=== PATIENT | female | born 1950 | race African-American/Black ===

== ENCOUNTER 2017-09-15 01:13 | Emergency (ER) | payer MEDICARE ==
[2017-09-15] VITALS (9 sets, daily range): BP systolic 76–105; BP diastolic 39–61
[~2017-09-15] VITALS: Ht 167.6 cm; Wt 104.3 kg
[2017-09-15] MEDS ORDERED: ATENOLOL25 MG ORAL (01:28)
[2017-09-15] MEDS ORDERED: ZANTAC150 MG ORAL (01:28)
[2017-09-15 01:43] LABS: BASOPHILS % (AUTO) 1.3 % (0.0-2.0); EOSINOPHILS % (AUTO) 2.2 % (0.0-3.0); HEMOGLOBIN 9.4 G/DL (12.0-16.0); LYMPHOCYTES % (AUTO) 41.5 % (20.0-45.0); MEAN CORPUSCULAR VOLUME 98 FL (80-99); MONOCYTES % (AUTO) 9.8 % (1.0-10.0); NEUTROPHILS % (AUTO) 45.2 % (45.0-75.0); PLATELET COUNT 207 K/UL (150-450); RED BLOOD COUNT 3.08 M/UL (4.20-5.40); RED CELL DISTRIBUTION WIDTH 15.2 % (11.6-14.8); WHITE BLOOD COUNT 8.5 K/UL (4.8-10.8)
[2017-09-15 01:48] LABS: ANION GAP 12 mmol/L (5-15); BLOOD UREA NITROGEN 13 mg/dL (7-18); CALCIUM 8.8 MG/DL (8.5-10.1); CARBON DIOXIDE 29 MMOL/L (21-32); CHLORIDE 95 MMOL/L (98-107); CREATININE 6.4 MG/DL (0.55-1.30); POTASSIUM 3.9 MMOL/L (3.5-5.1); SODIUM 136 MMOL/L (136-145)
--- NOTE | 2017-09-15 01:57 | Emergency Room Report ---
History of Present Illness General Chief Complaint: General Complaint Source: Patient, EMS Present Illness HPI Paramedics were called because of bleeding from dialysis shunt in her leg. They estimate that she lost at least 250 ml. The bleeding site was dressed without a pressure dressing. She was hypotensive in field. Usually hypotensive. She states she feels dizzy now. Had dialysis Thursday. Problems with recurrent bleeding and also problems with fistula clotting (due to low BP). She claims to be on a blood thinner to keep the shunt open but does not know the name. No chest pain, NVD, cough, fever. Not produce urine. Diabetic. Allergies: Coded Allergies: No Known Allergies (Unverified , 09/15/17) Patient History Past Medical History: see triage record Past Surgical History: other - fistula, shunt Social History: Denies: smoking, alcohol use, drug use Social History Narrative at home Last Menstrual Period: n/a Reviewed Nursing Documentation: PMH: Agreed; PSxH: Agreed Nursing Documentation-PMH Past Medical History: No History, Except For Hx Hypertension: Yes Hx Diabetes: Yes Hx Dialysis: Yes - MWF- left leg shunt History Of Psychiatric Problem: Yes - bipolar Review of Systems All Other Systems: negative except mentioned in HPI Physical Exam Vital Signs Date Time Temp Pulse Resp B/P (MAP) Pulse Ox O2 Delivery O2 Flow Rate FiO2 09/15/17 01:19 99.2 105 16 80/47 98 Room Air 99.1 Sp02 EP Interpretation: reviewed, normal General Appearance: no apparent distress, GCS 15, Chronically Ill Head: normocephalic Eyes: bilateral eye PERRL, bilateral eye conjunctivae pale ENT: moist mucus membranes Neck: supple Respiratory: lungs clear, normal breath sounds Cardiovascular #1: regular rate, rhythm Cardiovascular #2: 2+ radial (R), 2+ femoral (L) - no thrill through shunt, no active bleeding Gastrointestinal: normal inspection, normal bowel sounds, non tender, no mass, non-distended, overweight Musculoskeletal: back normal, gait/station normal, normal range of motion Neurologic: alert, oriented x3, grossly normal Psychiatric: mood/affect normal - frustrated Skin: warm/dry, pallor Procedures Critical Care Time Critical Care Time Total Critical Care Time: 30 min bedside evaluation and treatment excludes procedures (EKG, dermabond bleeding site). Reason for critical care: hemorrhagic shock in dialysis patient Possible complications: hypotension, hypertension, IA, shock, arrhythmias, metabolic acidosis, end organ damage, respiratory failure. Interventions: control bleeding, blood transfusion Course: Patient with hypotension post bleed from shunt. Dermabond to make sure bleeding controlled. Small bolus NS while wait for blood. Discussed with blood bank. Blood transfused with improved BP. Treated for back pain. Evaluated by admitting MD in ED. Improved. Consultations: nursing staff, EMS, blood bank, admitting MD Performed by: Dr. Schreiber Tolerated well condition = serious Additional Procedure Procedure Narrative after Betadine - dermabond applied to bleeding site (it had stopped) - tolerated well. Medical Decision Making Diagnostic Impression: Primary Impression: Bleeding from dialysis shunt Qualified Codes: T82.838A - Hemorrhage due to vascular prosthetic devices, implants and grafts, initial encounter Additional Impressions: Hemorrhagic shock ESRD (end stage renal disease) on dialysis ER Course Patient presents post bleeding from dialysis shunt in leg. Apparent loss of at least 1 unit blood. Hypotensive now. Needs judicious fluids until can transfuse blood. Also bleeding site needs dermabond. With hypotension, need to assess for AMI with EKG and labs. CXR also indicated to assess fluid status. BP low. Hgb 9. Needs transfusion. Called blood bank. EKG without injury. CXR no chf. Electrolytes indicated dialysis not needed emergently. Informed consent regarding transfusion. 1 unit transfused with improved blood pressure. Dizziness resolved. Patient complain of some back pain. 6-10/09, aching. Morphine ordered. Admit telemetry Dr. Santizo. Dr. Santizo arranged for transfer to [facility]. Labs Test 09/15/17 01:24 09/15/17 01:58 White Blood Count 8.5 K/UL (4.8-10.8) Red Blood Count 3.08 M/UL (4.20-5.40) Hemoglobin 9.4 G/DL (12.0-16.0) Hematocrit 30.0 % (37.0-47.0) Mean Corpuscular Volume 98 FL (80-99) Mean Corpuscular Hemoglobin 30.5 PG (27.0-31.0) Mean Corpuscular Hemoglobin Concent 31.3 G/DL (32.0-36.0) Red Cell Distribution Width 15.2 % (11.6-14.8) Platelet Count 207 K/UL (150-450) Mean Platelet Volume 8.5 FL (6.5-10.1) Neutrophils (%) (Auto) 45.2 % (45.0-75.0) Lymphocytes (%) (Auto) 41.5 % (20.0-45.0) Monocytes (%) (Auto) 9.8 % (1.0-10.0) Eosinophils (%) (Auto) 2.2 % (0.0-3.0) Basophils (%) (Auto) 1.3 % (0.0-2.0) Prothrombin Time 10.5 SEC (9.30-11.50) Prothromb Time International Ratio 1.0 (0.9-1.1) Activated Partial Thromboplast Time 20 SEC (23-33) Sodium Level 136 MMOL/L (136-145) Potassium Level 3.9 MMOL/L (3.5-5.1) Chloride Level 95 MMOL/L (98-107) Carbon Dioxide Level 29 MMOL/L (21-32) Anion Gap 12 mmol/L (5-15) Blood Urea Nitrogen 13 mg/dL (7-18) Creatinine 6.4 MG/DL (0.55-1.30) Estimat Glomerular Filtration Rate 7.9 mL/min (>60) Glucose Level 430 MG/DL (74-106) Calcium Level 8.8 MG/DL (8.5-10.1) Total Bilirubin 0.3 MG/DL (0.2-1.0) Aspartate Amino Transf (AST/SGOT) 15 U/L (15-37) Alanine Aminotransferase (ALT/SGPT) 35 U/L (12-78) Alkaline Phosphatase 133 U/L (46-116) Total Creatine Kinase 23 U/L (26-308) Troponin I 0.003 ng/mL (0.000-0.056) Pro-B-Type Natriuretic Peptide 2339 pg/mL (0-125) Total Protein 6.5 G/DL (6.4-8.2) Albumin 2.9 G/DL (3.4-5.0) Globulin 3.6 g/dL Albumin/Globulin Ratio 0.8 (1.0-2.7) Lab Scanned Report Blood Bank/Transfusion EKG Diagnostic Results Rate: tachycardiac ST Segments: no acute changes Rhythm Strip Diag. Results EP Interpretation: yes Rhythm: no PVC's, no ectopy Chest X-Ray Diagnostic Results Chest X-Ray Diagnostic Results : Chest X-Ray Ordered: Yes # of Views/Limited/Complete: 1 View Indication: Other EP Interpretation: Yes Interpretation: no consolidation, no effusion, no pneumothorax Impression: Other Electronically Signed by: Douglas Schreiber MD Last Vital Signs Date Time Temp Pulse Resp B/P (MAP) Pulse Ox O2 Delivery O2 Flow Rate FiO2 09/15/17 12:43 98.4 79 18 105/61 99 Room Air 98.4 Status: improved Disposition: [facility] Condition: Serious Douglas Schreiber M.D. Sep 15, 2017 01:57
[2017-09-15 01:59] LABS: ALANINE AMINOTRANSFERASE 35 U/L (12-78); ALBUMIN 2.9 G/DL (3.4-5.0); ALBUMIN/GLOBULIN RATIO 0.8 (1.0-2.7); ALKALINE PHOSPHATASE 133 U/L (46-116); ASPARTATE AMINO TRANSFERASE 15 U/L (15-37); BILIRUBIN,TOTAL 0.3 MG/DL (0.2-1.0); CREATINE KINASE 23 U/L (26-308)
[2017-09-15] MEDS ORDERED: Morphine Sulfate 4mg/ml Inj IVP PRN (06:15)
[2017-09-15] MEDS ORDERED: Norco 5mg/325mg tab ORAL PRN (07:30)
--- NOTE | 2017-09-15 10:11 | Diagnostic Imaging Report ---
Indication: Dyspnea Comparison: None A single view chest radiograph was obtained. Findings: Cardiomediastinal appearance is within normal limits for age. There are surgical clips in the left axilla. Pulmonary vascularity is appropriate. The diaphragmatic contour is smooth and costophrenic angles are sharp. No pleural effusions are identified. The bones are unremarkable. Impression: No acute findings
[2017-09-15] MEDS ORDERED: NovoLOG Insulin Flexpen SUBQ SCH (11:30)
--- NOTE | 2017-09-15 16:00 | History and Physical Report ---
DATE OF ADMISSION: 09/15/2017 CHIEF COMPLAINT: Bleeding from left leg AV fistula/graft. HISTORY OF PRESENT ILLNESS: The patient is a 66-year-old female. She has a history of end-stage renal disease, on chronic hemodialysis for 7 years. She has a nonfunctioning left upper extremity AV fistula and a groin AV fistula/graft that she has been receiving dialysis through. Her last dialysis was on the day prior to admission and later in the evening though she had perfuse bleeding from the thigh graft. She called paramedics. Bleeding eventually stopped after it was Dermabonded in the emergency room. She was noted to be slightly hypotensive and was transfused 1 unit of packed red blood cells. She is currently without complaints. She has had recurrent issues with clotting of the bleeding of the AV graft in the groin. She, otherwise, is without complaints. Denies any chest pain or shortness of breath. PAST MEDICAL HISTORY: As above. She has a history of diabetes and history of hyper and hypotension. PAST SURGICAL HISTORY: As above. CURRENT MEDICATIONS: Reconciled and reviewed. ALLERGIES: None. FAMILY HISTORY: None. SOCIAL HISTORY: There is no known history of tobacco, ethanol, or drugs. REVIEW OF SYSTEMS: GENERAL: No fevers or chills. HEENT: No headaches or visual changes. CARDIOPULMONARY: No chest pain or shortness of breath. GASTROINTESTINAL: No nausea or vomiting. GENITOURINARY: No urgency or frequency. MUSCULOSKELETAL: No joint pain or swelling. NEUROLOGIC: No evidence of seizures. PHYSICAL EXAMINATION: VITAL SIGNS: Temperature 98.4, pulse was 90, and blood pressure 105/60. GENERAL: The patient is well-developed, in no apparent distress. She is awake, alert, and oriented x4. NECK: Supple. HEART: Regular rate and rhythm. LUNGS: Clear. ABDOMEN: Soft, nontender, and nondistended. EXTREMITIES: Without clubbing or cyanosis. There is left upper extremity AV graft and there is a scar on the left upper extremity. The left thigh has AV fistula/graft. There is no bruit noted. LABORATORY DATA: White count 8, hemoglobin 9.4, hematocrit 30, and platelets of 207,000. Sodium 136, potassium 3.9, chloride 95, BUN 13, and creatinine is 6.4. Coags normal. ASSESSMENT: This is a pleasant female, admitted with bleeding from her left groin AV fistula, now resolved. 1. Left groin bleeding, resolved. 2. Clotted left groin AV fistula. 3. Hyper and hypotension. 4. End-stage renal disease. 5. History of diabetes. PLAN: 1. Vascular evaluation. 2. Renal consultation. 3. Monitor for bleeding. Gavino Santizo M.D. DR: GAYLA JOB#: [id number] CC:
--- NOTE | 2017-09-15 16:38 | Cardiology Report ---
APPROVED REPORT EKG Measurement Heart [id number] IL [id number] [id number] Sinus tachycardia Possible Left atrial enlargement Borderline ECG
== END 2017-09-15 12:43 | disposition other institution (70) ==
LOC: EDUNIT# 01:13 → EDBD 01:13 → EMR 01:58 → 2E 02:07 → UNDOADMIN 02:07 → EDBEDREQ 04:18 → 2E 07:55 → EMR 12:43 → CANBEDREQ 12:44
DX: T82.838A Hemorrhage due to vascular prosthetic devices, implants and grafts, initial encounter (principal); Y83.2 Surgical operation with anastomosis, bypass or graft as the cause of abnormal reaction of the patient, or of later complication, without mention of misadventure at the time of the procedure; Y92.9 Unspecified place or not applicable; R57.8 Other shock; I12.0 Hypertensive chronic kidney disease with stage 5 chronic kidney disease or end stage renal disease; N18.6 End stage renal disease; Z99.2 Dependence on renal dialysis; E11.9 Type 2 diabetes mellitus without complications
CPT/HCPCS: 36415; 71045; 80053; 82550; 82962; 83880; 84484; 85025; 85610; 85730; 86850; 86900; 86901; 86920; 93005; 96374; 96375; 99283; J1815; J2270; J2405; P9016

== ENCOUNTER 2018-07-29 21:37 | Inpatient (IN) | payer MEDICARE, MEDICAID ==
[~2018-07-29] VITALS: Ht 167.6 cm; Wt 94.3 kg
[~2018-07-29 21:37] MED LIST: ATENOLOL25 MG ORAL; ZANTAC150 MG ORAL
[2018-07-29] MEDS ORDERED: LATUDA40 MG PO (21:46)
[2018-07-29] MEDS ORDERED: SENSIPAR90 MG PO (21:46)
[2018-07-29] MEDS ORDERED: DEPAKOTE ER500 MG ORAL (21:46)
--- NOTE | 2018-07-29 21:54 | NUR ---
ED Nurse Note: Patient walked into ED c/o cough and congestion for 11 days now. Pt is on dialysis, on schedule Mon,Wed, Fri. AV shount on L upper leg. Pt is AO x 4times, VSS, on room air no distress. MATILDED seen Pt at bedside.
[2018-07-29 22:00] VITALS: BP 160/78
--- NOTE | 2018-07-29 22:19 | Emergency Room Report ---
History of Present Illness General Chief Complaint: Upper Respiratory Illness Source: Patient Present Illness HPI Patient presents with complaints of cough over the past 7-10 days Denies any fevers denies any chest pain Patient is a diabetic with renal failure Gets dialysis on Thursday was a Thursday and is due for dialysis tomorrow Denies any rash she does have some increased edema in her extremities Denies any phlegm production with the cough Denies any recent travel or pleurisy Allergies: Coded Allergies: No Known Allergies (Unverified , 09/15/17) Patient History Past Medical History: see triage record Pertinent Family History: none Reviewed Nursing Documentation: PMH: Agreed; PSxH: Agreed Nursing Documentation-PMH Past Medical History: No History, Except For Hx Hypertension: Yes Hx Diabetes: Yes Hx Dialysis: Yes - MWF- left leg shunt Review of Systems All Other Systems: negative except mentioned in HPI Physical Exam Vital Signs Date Time Temp Pulse Resp B/P (MAP) Pulse Ox O2 Delivery O2 Flow Rate FiO2 07/29/18 21:40 98.4 97 18 153/73 (99) 93 Room Air Sp02 EP Interpretation: reviewed, normal General Appearance: no apparent distress Head: normocephalic, atraumatic Eyes: bilateral eye PERRL, bilateral eye EOMI ENT: normal pharynx Neck: supple, no meningismus Respiratory: no retraction, no accessory muscle use, crackles - Bilaterally Gastrointestinal: non tender, soft Musculoskeletal: other - Edema is noted in both upper and lower extremities, patient also shows some facial edema here in a wheelchair no obvious focal deficit, Neurologic: alert, oriented x3 Skin: other - As above Lymphatic: no adenopathy Medical Decision Making Diagnostic Impression: Primary Impression: Dyspnea Additional Impression: Renal failure ER Course Patient is a fairly complex patient with multiple differential to consideration including but not limited to cardiac cardiopulmonary and vascular emergencies Patient's x-ray reveals right-sided effusion White blood cell count is normal making infectious process less likely Patient does not make urine and further Lasix was not provided Patient will require further inpatient care and dialysis Labs Test 07/29/18 22:20 White Blood Count 7.1 K/UL (4.8-10.8) Red Blood Count 3.35 M/UL (4.20-5.40) Hemoglobin 10.6 G/DL (12.0-16.0) Hematocrit 31.9 % (37.0-47.0) Mean Corpuscular Volume 95 FL (80-99) Mean Corpuscular Hemoglobin 31.6 PG (27.0-31.0) Mean Corpuscular Hemoglobin Concent 33.2 G/DL (32.0-36.0) Red Cell Distribution Width 15.0 % (11.6-14.8) Platelet Count 236 K/UL (150-450) Mean Platelet Volume 6.2 FL (6.5-10.1) Neutrophils (%) (Auto) 69.8 % (45.0-75.0) Lymphocytes (%) (Auto) 14.9 % (20.0-45.0) Monocytes (%) (Auto) 12.2 % (1.0-10.0) Eosinophils (%) (Auto) 2.3 % (0.0-3.0) Basophils (%) (Auto) 0.9 % (0.0-2.0) Sodium Level 132 MMOL/L (136-145) Potassium Level 4.0 MMOL/L (3.5-5.1) Chloride Level 94 MMOL/L (98-107) Carbon Dioxide Level 28 MMOL/L (21-32) Anion Gap 11 mmol/L (5-15) Blood Urea Nitrogen 17 mg/dL (7-18) Creatinine 6.6 MG/DL (0.55-1.30) Estimat Glomerular Filtration Rate 7.6 mL/min (>60) Glucose Level 112 MG/DL (74-106) Calcium Level 10.7 MG/DL (8.5-10.1) Total Bilirubin 0.4 MG/DL (0.2-1.0) Aspartate Amino Transf (AST/SGOT) 15 U/L (15-37) Alanine Aminotransferase (ALT/SGPT) 19 U/L (12-78) Alkaline Phosphatase 62 U/L (46-116) Total Creatine Kinase 34 U/L (26-308) Creatine Kinase MB 1.3 NG/ML (0.0-3.6) Creatine Kinase MB Relative Index 3.8 Troponin I 0.046 ng/mL (0.000-0.056) Pro-B-Type Natriuretic Peptide 59366 pg/mL (0-125) Total Protein 7.5 G/DL (6.4-8.2) Albumin 3.4 G/DL (3.4-5.0) Globulin 4.1 g/dL Albumin/Globulin Ratio 0.8 (1.0-2.7) Lipase 147 U/L (73-393) EKG Diagnostic Results Rate: normal Rhythm: NSR ST Segments: other - Nonspecific ST T-wave changes Rhythm Strip Diag. Results EP Interpretation: yes Rate: 70 Rhythm: NSR, no PVC's, no ectopy Chest X-Ray Diagnostic Results Chest X-Ray Diagnostic Results : Chest X-Ray Ordered: Yes # of Views/Limited/Complete: 1 View EP Interpretation: Yes Interpretation: no pneumothorax, other - Right-sided effusion Impression: Other - Right-sided effusion Electronically Signed by: Bi Banegas DO Last Vital Signs Date Time Temp Pulse Resp B/P (MAP) Pulse Ox O2 Delivery O2 Flow Rate FiO2 07/29/18 22:00 98.6 88 18 160/78 93 Room Air Status: improved Disposition: ADMITTED INPATIENT Condition: Serious Bi Banegas DO July 29, 2018 22:18
--- NOTE | 2018-07-29 22:40 | NUR ---
ER Nurse Note: Pt calm, cooperative, no signs of distress. Pt on 2L NC for comfort. SLIV RT AC; patent. All safety measures met; will conitnue to monitor.
[2018-07-29 22:52] LABS: BASOPHILS % (AUTO) 0.9 % (0.0-2.0); EOSINOPHILS % (AUTO) 2.3 % (0.0-3.0); HEMATOCRIT 31.9 % (37.0-47.0); HEMOGLOBIN 10.6 G/DL (12.0-16.0); LYMPHOCYTES % (AUTO) 14.9 % (20.0-45.0); MEAN CORPUSCULAR VOLUME 95 FL (80-99); MONOCYTES % (AUTO) 12.2 % (1.0-10.0); NEUTROPHILS % (AUTO) 69.8 % (45.0-75.0); PLATELET COUNT 236 K/UL (150-450); RED BLOOD COUNT 3.35 M/UL (4.20-5.40); WHITE BLOOD COUNT 7.1 K/UL (4.8-10.8)
[2018-07-29 23:00] LABS: ANION GAP 11 mmol/L (5-15); BLOOD UREA NITROGEN 17 mg/dL (7-18); CALCIUM 10.7 MG/DL (8.5-10.1); CARBON DIOXIDE 28 MMOL/L (21-32); CHLORIDE 94 MMOL/L (98-107); CREATININE 6.6 MG/DL (0.55-1.30); SODIUM 132 MMOL/L (136-145)
[2018-07-29 23:13] LABS: ALANINE AMINOTRANSFERASE 19 U/L (12-78); ALBUMIN 3.4 G/DL (3.4-5.0); ALBUMIN/GLOBULIN RATIO 0.8 (1.0-2.7); ALKALINE PHOSPHATASE 62 U/L (46-116); ASPARTATE AMINO TRANSFERASE 15 U/L (15-37); BILIRUBIN,TOTAL 0.4 MG/DL (0.2-1.0); CKMB 1.3 NG/ML (0.0-3.6); CREATINE KINASE 34 U/L (26-308)
[2018-07-29] MEDS ORDERED: Promethazine/Codeine 5ml UD ORAL ONE (23:30)
--- NOTE | 2018-07-29 23:50 | NUR ---
ER Nurse Note: Report given to MARCIN Vega in tele for continuity of care. All orders completed per ERMD orders. Pt a&ox4, VSS, no signs of distress. All belongings taken; home meds are recorded and with pt.
[2018-07-30] VITALS (8 sets, daily range): BP systolic 143–166; BP diastolic 74–89
[2018-07-30] MEDS ORDERED: TRAZODONE HCL50 MG ORAL (00:48)
--- NOTE | 2018-07-30 01:02 | NUR ---
NURSE NOTES: RECEIVED PATIENT FROM ER. PATIENT ALERT AND ORIENTED X4, DENIES PAIN AT THIS TIME. MADE PATIENT COMFORTABLE IN BED, TELE APPLIED, SR ON A MONITOR. BELONGINGS CHECKED WITH ER NURSE. FALL PRECAUTIONS IN PLACE: CALL LIGHT AND BEDSIDE TABLE WITHIN REACH, BED IN LOW POSITION AND BED ALARM ON. LEFT MESSAGE FOR DR. LEMONS.
[2018-07-30] MEDS ORDERED: Albuterol/Ipratropium 3ml neb HHN PRN (01:30)
[2018-07-30] MEDS: Depakote 500mg tab ORAL SCH ×2 (01:55→22:14)
[2018-07-30] MEDS: TraZODone 50mg tab ORAL SCH ×2 (01:55→22:15)
--- NOTE | 2018-07-30 07:10 | NUR ---
NURSE NOTES: Report received from Silvia. Patient in 2L NC. Order to be placed by night nurse. Complained of breathing difficulty, call given to RT by night RN. Pt. made calm and comfortable. Per night RNMD to visit Pt. today and put orders. Bed on lowest position, side rails upx2, brakes engaged. Call light within easy reach.
--- NOTE | 2018-07-30 07:11 | NUR ---
HAND-OFF: Report given to MARCIN PEREZ. PATIENT RESTING IN BED, NO SIGNS OF DISTRESS NOTED.
[2018-07-30 07:59] LABS: BASOPHILS % (AUTO) 1.2 % (0.0-2.0); EOSINOPHILS % (AUTO) 3.4 % (0.0-3.0); HEMATOCRIT 28.4 % (37.0-47.0); HEMOGLOBIN 8.9 G/DL (12.0-16.0); LYMPHOCYTES % (AUTO) 25.5 % (20.0-45.0); MEAN CORPUSCULAR VOLUME 100 FL (80-99); MONOCYTES % (AUTO) 11.4 % (1.0-10.0); NEUTROPHILS % (AUTO) 58.5 % (45.0-75.0); PLATELET COUNT 190 K/UL (150-450); RED BLOOD COUNT 2.84 M/UL (4.20-5.40); RED CELL DISTRIBUTION WIDTH 16.1 % (11.6-14.8); WHITE BLOOD COUNT 5.3 K/UL (4.8-10.8)
[2018-07-30] MEDS: Sensipar 30mg Tab ORAL SCH ×2 (09:57→22:14)
--- NOTE | 2018-07-30 10:10 | Consultation ---
History of Present Illness General Date patient seen: July 30, 2018 Time patient seen: 10:06 Chief Complaint: Upper Respiratory Illness Present Illness HPI The patient is a 67-year-old female. She has a history of end-stage renal disease, on chronic hemodialysis for 8 years. She has a nonfunctioning left upper extremity AV fistula and a groin AV fistula/graft that she has been receiving dialysis through. She presents with SOB and congestion. 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 Resuscitation status Full Code Advanced Directive on File Review of Systems Constitutional: Reports: no symptoms Eye: Reports: no symptoms ENT: Reports: no symptoms Respiratory: Reports: cough, shortness of breath Cardiovascular: Reports: no symptoms Gastrointestinal: Reports: no symptoms Genitourinary: Reports: no symptoms Musculoskeletal: Reports: no symptoms Skin: Reports: no symptoms Psychiatric: Reports: no symptoms Neurological: Reports: no symptoms Endocrine: Reports: no symptoms Hematologic/Lymphatic: Reports: no symptoms Physical Exam General Appearance: no apparent distress, alert Lines, tubes and drains: peripheral HEENT: normocephalic, atraumatic, anicteric, mucous membranes moist, PERRL Neck: non-tender, normal alignment, supple, normal inspection Respiratory/Chest: chest wall non-tender, lungs clear Cardiovascular/Chest: normal peripheral pulses, normal rate, regular rhythm Abdomen: normal bowel sounds, non tender Extremities: normal range of motion, non-tender, normal inspection, no calf tenderness, normal capillary refill, non-pitting Skin Exam: normal pigmentation, warm/dry 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, no motor/sensory deficits Last 24 Hour Vital Signs Date Time Temp Pulse Resp B/P (MAP) Pulse Ox O2 Delivery O2 Flow Rate FiO2 5/31/19 06:00 97.8 80 20 166/74 (104) 99 07/30/18 04:00 97.8 80 20 166/74 (104) 99 07/30/18 04:00 80 07/30/18 01:08 Nasal Cannula 2.0 07/30/18 00:25 91 07/30/18 00:15 99.2 92 20 143/89 (107) 94 07/30/18 00:10 98.6 96 18 148/86 98 Nasal Cannula 2.0 07/30/18 00:10 98.6 96 18 148/86 98 Nasal Cannula 2.0 07/29/18 22:00 98.6 88 18 160/78 93 Room Air 07/29/18 22:00 87 18 Room Air 07/29/18 21:40 98.4 97 18 153/73 (99) 93 Room Air Intake and Output 07/29/18 07/30/18 19:00 07:00 Intake Total 120 ml Output Total 0 ml Balance 120 ml Intake Oral 120 ml Output Urine Total 0 ml Laboratory Tests Test 07/29/18 22:20 07/30/18 06:38 White Blood Count 7.1 K/UL (4.8-10.8) 5.3 K/UL (4.8-10.8) Red Blood Count 3.35 M/UL (4.20-5.40) L 2.84 M/UL (4.20-5.40) L Hemoglobin 10.6 G/DL (12.0-16.0) L 8.9 G/DL (12.0-16.0) L Hematocrit 31.9 % (37.0-47.0) L 28.4 % (37.0-47.0) L Mean Corpuscular Volume 95 FL (80-99) 100 FL (80-99) H Mean Corpuscular Hemoglobin 31.6 PG (27.0-31.0) H 31.4 PG (27.0-31.0) H Mean Corpuscular Hemoglobin Concent 33.2 G/DL (32.0-36.0) 31.3 G/DL (32.0-36.0) L Red Cell Distribution Width 15.0 % (11.6-14.8) H 16.1 % (11.6-14.8) H Platelet Count 236 K/UL (150-450) 190 K/UL (150-450) Mean Platelet Volume 6.2 FL (6.5-10.1) L 6.7 FL (6.5-10.1) Neutrophils (%) (Auto) 69.8 % (45.0-75.0) 58.5 % (45.0-75.0) Lymphocytes (%) (Auto) 14.9 % (20.0-45.0) L 25.5 % (20.0-45.0) Monocytes (%) (Auto) 12.2 % (1.0-10.0) H 11.4 % (1.0-10.0) H Eosinophils (%) (Auto) 2.3 % (0.0-3.0) 3.4 % (0.0-3.0) H Basophils (%) (Auto) 0.9 % (0.0-2.0) 1.2 % (0.0-2.0) Sodium Level 132 MMOL/L (136-145) L Potassium Level 4.0 MMOL/L (3.5-5.1) Chloride Level 94 MMOL/L (98-107) L Carbon Dioxide Level 28 MMOL/L (21-32) Anion Gap 11 mmol/L (5-15) Blood Urea Nitrogen 17 mg/dL (7-18) Creatinine 6.6 MG/DL (0.55-1.30) H Estimat Glomerular Filtration Rate 7.6 mL/min (>60) Glucose Level 112 MG/DL (74-106) H Calcium Level 10.7 MG/DL (8.5-10.1) H Total Bilirubin 0.4 MG/DL (0.2-1.0) Aspartate Amino Transf (AST/SGOT) 15 U/L (15-37) Alanine Aminotransferase (ALT/SGPT) 19 U/L (12-78) Alkaline Phosphatase 62 U/L (46-116) Total Creatine Kinase 34 U/L (26-308) Creatine Kinase MB 1.3 NG/ML (0.0-3.6) Creatine Kinase MB Relative Index 3.8 Troponin I 0.046 ng/mL (0.000-0.056) Pro-B-Type Natriuretic Peptide 28805 pg/mL (0-125) H 38837 pg/mL (0-125) H Total Protein 7.5 G/DL (6.4-8.2) Albumin 3.4 G/DL (3.4-5.0) Globulin 4.1 g/dL Albumin/Globulin Ratio 0.8 (1.0-2.7) L Lipase 147 U/L (73-393) Microbiology Date/Time Source Procedure Growth Status 07/29/18 23:00 Rectum Received Height (Feet): 5 Height (Inches): 6.00 Weight (Pounds): 208 Medications Current Medications Medications (Trade) Dose Ordered Sig/Martha Route PRN Reason Start Time Stop Time Status Last Admin Dose Admin Acetaminophen (Tylenol) 650 mg Q6H PRN ORAL Mild Pain/Temp > 100.5 07/30/18 01:30 08/29/18 01:29 Albuterol/ Ipratropium (Albuterol/ Ipratropium) 3 ml Q6HRT PRN HHN Shortness of Breath 07/30/18 01:30 08/04/18 01:29 Cinacalcet (Sensipar) 90 mg Q12HR ORAL 07/30/18 09:00 08/29/18 08:59 07/30/18 09:57 Divalproex Sodium (Depakote) 1,500 mg QHS ORAL 07/30/18 01:30 08/29/18 01:29 07/30/18 01:55 Non-Formulary Medication (Non-Formulary Med) 1 ea DAILY ORAL 07/30/18 09:00 08/29/18 08:59 UNV Trazodone HCl (Desyrel) 25 mg BEDTIME ORAL 07/30/18 01:30 08/29/18 01:29 07/30/18 01:55 Assessment/Plan Assessment/Plan: Assessment ESRD Anemia Hypertension Hyponatremia Fluid overload CHF Cough Plan: Maintain dialysis Echocardiogram Chest x ray Tessalon for cough Norvasc for hypertension Douglas Barry MD July 30, 2018 10:10
--- NOTE | 2018-07-30 10:24 | NUR ---
RADIOLOGY DEPT., CHEST X-RAY DONE ON 07/29 @ 11:00 PM ON ADMIT FROM ER.CRISTINA
--- NOTE | 2018-07-30 10:30 | Diagnostic Imaging Report ---
Indication: Dyspnea Comparison: 09/15/2017 A single view chest radiograph was obtained. Findings: Pulmonary vascular congestion demonstrated. Borderline cardiomegaly noted. Airspace disease may be present at the right lung base. There is also evidence of a pleural effusion noted. IMPRESSION: CHF. Suspected right pleural effusion
--- NOTE | 2018-07-30 11:36 | Consultation ---
History of Present Illness General Date patient seen: July 30, 2018 Time patient seen: 11:22 Chief Complaint: Upper Respiratory Illness Reason for Consultation: ESRD on HD M/WF Present Illness HPI 67 year old female with past medical history of HTN complicated by ESRD on HD vial LLE AVG for the past 9 yeasr presents with cough and shortness of breath for the past 7-10 days. Notes chills, no fevers Last HD on thursday with 1.5L UF She has been compliant with HD she states that he mell weight is close to 92Kg No chest pain or palpitations. 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 Resuscitation status Full Code Advanced Directive on File Review of Systems Constitutional: Reports: chills, weakness Eye: Denies: no symptoms, see HPI, eye pain, blurred vision, tearing, double vision, nose pain, nose congestion, acuity changes, discharge, other ENT: Denies: no symptoms, see HPI, ear pain, ear discharge, nose pain, nose congestion, throat pain, throat swelling, mouth pain, hearing loss, nasal discharge, other Respiratory: Reports: cough, shortness of breath; Denies: no symptoms, see HPI , orthopnea, stridor, wheezing, PARK, sputum, other Genitourinary: Denies: no symptoms, see HPI, discharge, dysuria, frequency, hematuria, pain, retention, incontinence, urgency, vag bleed/dc, other Musculoskeletal: Denies: no symptoms, see HPI, back pain, gout, joint pain, joint swelling, muscle pain, muscle stiffness, other Skin: Denies: no symptoms, see HPI, rash, change in color, change in hair/nails , dryness, lesions, other Psychiatric: Denies: no symptoms, see HPI, prior hx, anxiety, depressed feelings, emotional problems, SI, HI, hallucinations, other Neurological: Denies: no symptoms, see HPI, headache, numbness, paresthesia, seizure, tingling, tremors, focal weakness, syncope, dizziness, other Hematologic/Lymphatic: Denies: no symptoms, see HPI, anemia, blood clots, easy bleeding, easy bruising, swollen glands, diathesis, other Physical Exam General Appearance: WD/WN, no apparent distress HEENT: normocephalic, PERRL Neck: non-tender Respiratory/Chest: chest wall non-tender, crackles/rales Cardiovascular/Chest: normal peripheral pulses, normal rate, regular rhythm Abdomen: normal bowel sounds Extremities: non-tender, no calf tenderness, other 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 grossly normal, alert, oriented x 3, responsive Last 24 Hour Vital Signs Date Time Temp Pulse Resp B/P (MAP) Pulse Ox O2 Delivery O2 Flow Rate FiO2 07/30/18 08:00 98.8 89 20 144/76 (98) 96 07/30/18 08:00 88 07/30/18 06:00 97.8 80 20 166/74 (104) 99 07/30/18 04:00 97.8 80 20 166/74 (104) 99 07/30/18 04:00 80 07/30/18 01:08 Nasal Cannula 2.0 07/30/18 00:25 91 07/30/18 00:15 99.2 92 20 143/89 (107) 94 07/30/18 00:10 98.6 96 18 148/86 98 Nasal Cannula 2.0 07/30/18 00:10 98.6 96 18 148/86 98 Nasal Cannula 2.0 07/29/18 22:00 98.6 88 18 160/78 93 Room Air 07/29/18 22:00 87 18 Room Air 07/29/18 21:40 98.4 97 18 153/73 (99) 93 Room Air Intake and Output 07/29/18 07/30/18 19:00 07:00 Intake Total 120 ml Output Total 0 ml Balance 120 ml Intake Oral 120 ml Output Urine Total 0 ml Laboratory Tests Test 07/29/18 22:20 07/30/18 06:38 White Blood Count 7.1 K/UL (4.8-10.8) 5.3 K/UL (4.8-10.8) Red Blood Count 3.35 M/UL (4.20-5.40) L 2.84 M/UL (4.20-5.40) L Hemoglobin 10.6 G/DL (12.0-16.0) L 8.9 G/DL (12.0-16.0) L Hematocrit 31.9 % (37.0-47.0) L 28.4 % (37.0-47.0) L Mean Corpuscular Volume 95 FL (80-99) 100 FL (80-99) H Mean Corpuscular Hemoglobin 31.6 PG (27.0-31.0) H 31.4 PG (27.0-31.0) H Mean Corpuscular Hemoglobin Concent 33.2 G/DL (32.0-36.0) 31.3 G/DL (32.0-36.0) L Red Cell Distribution Width 15.0 % (11.6-14.8) H 16.1 % (11.6-14.8) H Platelet Count 236 K/UL (150-450) 190 K/UL (150-450) Mean Platelet Volume 6.2 FL (6.5-10.1) L 6.7 FL (6.5-10.1) Neutrophils (%) (Auto) 69.8 % (45.0-75.0) 58.5 % (45.0-75.0) Lymphocytes (%) (Auto) 14.9 % (20.0-45.0) L 25.5 % (20.0-45.0) Monocytes (%) (Auto) 12.2 % (1.0-10.0) H 11.4 % (1.0-10.0) H Eosinophils (%) (Auto) 2.3 % (0.0-3.0) 3.4 % (0.0-3.0) H Basophils (%) (Auto) 0.9 % (0.0-2.0) 1.2 % (0.0-2.0) Sodium Level 132 MMOL/L (136-145) L Potassium Level 4.0 MMOL/L (3.5-5.1) Chloride Level 94 MMOL/L (98-107) L Carbon Dioxide Level 28 MMOL/L (21-32) Anion Gap 11 mmol/L (5-15) Blood Urea Nitrogen 17 mg/dL (7-18) Creatinine 6.6 MG/DL (0.55-1.30) H Estimat Glomerular Filtration Rate 7.6 mL/min (>60) Glucose Level 112 MG/DL (74-106) H Calcium Level 10.7 MG/DL (8.5-10.1) H Total Bilirubin 0.4 MG/DL (0.2-1.0) Aspartate Amino Transf (AST/SGOT) 15 U/L (15-37) Alanine Aminotransferase (ALT/SGPT) 19 U/L (12-78) Alkaline Phosphatase 62 U/L (46-116) Total Creatine Kinase 34 U/L (26-308) Creatine Kinase MB 1.3 NG/ML (0.0-3.6) Creatine Kinase MB Relative Index 3.8 Troponin I 0.046 ng/mL (0.000-0.056) Pro-B-Type Natriuretic Peptide 71687 pg/mL (0-125) H 65005 pg/mL (0-125) H Total Protein 7.5 G/DL (6.4-8.2) Albumin 3.4 G/DL (3.4-5.0) Globulin 4.1 g/dL Albumin/Globulin Ratio 0.8 (1.0-2.7) L Lipase 147 U/L (73-393) Microbiology Date/Time Source Procedure Growth Status 07/29/18 23:00 Rectum Received Height (Feet): 5 Height (Inches): 6.00 Weight (Pounds): 208 Medications Current Medications Medications (Trade) Dose Ordered Sig/Martha Route PRN Reason Start Time Stop Time Status Last Admin Dose Admin Acetaminophen (Tylenol) 650 mg Q6H PRN ORAL Mild Pain/Temp > 100.5 07/30/18 01:30 08/29/18 01:29 Albuterol/ Ipratropium (Albuterol/ Ipratropium) 3 ml Q6HRT PRN HHN Shortness of Breath 07/30/18 01:30 08/04/18 01:29 Amlodipine Besylate (Norvasc) 10 mg DAILY ORAL 07/31/18 09:00 08/30/18 08:59 Benzonatate (Tessalon Perles) 100 mg THREE TIMES A DAY ORAL 07/30/18 13:00 08/29/18 12:59 Cinacalcet (Sensipar) 90 mg Q12HR ORAL 07/30/18 09:00 08/29/18 08:59 07/30/18 09:57 Divalproex Sodium (Depakote) 1,500 mg QHS ORAL 07/30/18 01:30 08/29/18 01:29 07/30/18 01:55 Non-Formulary Medication (Non-Formulary Med) 1 ea DAILY ORAL 07/30/18 09:00 08/29/18 08:59 UNV Trazodone HCl (Desyrel) 25 mg BEDTIME ORAL 07/30/18 01:30 08/29/18 01:29 07/30/18 01:55 Assessment/Plan Diagnosis [place]: #ESRD on HD on M/W?F #Volume overload #acute on chronic CHF #Schizoaffective disorder - admit inpatient - tele - HD today - lisa - azithromycin 500mg IV daily - 2d echo - cardiology consult - resume home meds - monitor BP - DVT ppx Radha Verdin M.D. July 30, 2018 11:36
[2018-07-30] MEDS ORDERED: guaiFENesin 100mg/5ml Liq ud ORAL PRN (12:00)
[2018-07-30] MEDS: Azithromycin 500 MG in D5W 275 ML IV SCH (14:20)
[2018-07-30] MEDS: Benzonatate 100mg Perles ORAL SCH ×2 (14:21→18:52)
--- NOTE | 2018-07-30 14:41 | NUR ---
CASE MANAGEMENT:REVIEW 67 YR OLD FEMALE FROM HOME TO ER CC: SOB AND CONGESTION SI: DYSPNEA. RENAL FAILURE 98.5 97 18 153/73 93% ON RA NA-132 CR+6.6 GLUCOSE+112 BNP+[id number] IS: PHENERGAN PO X1 CHEST XRAY BLOOD CX : TO TELEMETRY IS: IV AZITHROMYCIN Q24
--- NOTE | 2018-07-30 17:55 | History & Physical ---
History and Physical History & Physicial #[id number] Douglas Johnson MD July 30, 2018 17:55
[2018-07-30] MEDS: guaiFENesin ER 600mg tab ORAL SCH (18:52)
--- NOTE | 2018-07-30 20:03 | NUR ---
HAND-OFF: Report given to MARCIN Auguste. Patient to have dialysis. In stable condition.
--- NOTE | 2018-07-30 20:12 | NUR ---
NURSE NOTES: Received pt from MARCIN James. Pt awake, alert, and awaiting HD. Bed in lowest position. Call light within reach. Will continue to monitor.
--- NOTE | 2018-07-30 21:45 | History and Physical Report ---
DATE OF ADMISSION: 07/29/2018 CHIEF COMPLAINT: Cough and shortness of breath. HISTORY OF PRESENT ILLNESS: This is a 67-year-old female with history of hypertension, end-stage renal disease, on hemodialysis Wednesdays and Fridays, who presents to emergency room for shortness of breath and cough since 07/17/2018. The patient denies having any fevers or chills. She states her roommate had a cold for the last 7 to 10 days. Her last dialysis was on Thursday and she has been compliant with dialysis. She denies any leg swelling. She denies any chest pain. She states her cough is dry. Chest x-ray in the emergency room revealed what appears to be congestive heart failure with suspected right pleural effusion and pulmonary vascular congestion. PAST MEDICAL HISTORY: Includes hypertension and end-stage renal disease. PAST SURGICAL HISTORY: AV fistula. MEDICATIONS: Reviewed in [employer]. ALLERGIES: No known drug allergies. SOCIAL HISTORY: The patient does not smoke, drink alcohol, or use any drugs. FAMILY HISTORY: Noncontributory. PHYSICAL EXAMINATION: VITAL SIGNS: Temperature is 98.8, pulse is 89, respiratory rate is 20, and blood pressure 144/76. GENERAL: No acute distress. The patient is alert, awake, and oriented x3. HEENT: Normocephalic/atraumatic. NECK: Supple. No JVD. LUNGS: Clear to auscultation bilaterally. No crackles, rhonchi, or rales. Decreased breath sounds bilaterally. ABDOMEN: Soft, nontender, and nondistended. EXTREMITIES: No clubbing, cyanosis, or edema. LABORATORY DATA: CBC, white count 7.1, hemoglobin 10.6, and platelet count of 236,000. BMP, sodium 133, potassium 4, chloride 94, CO2 28, BUN is 17, and creatinine is 6.6. LFTs are within normal limits. ProBNP is 23,271. EKG shows normal sinus rhythm. No PVCs. No ST changes. Chest x-ray shows right-sided pleural effusion. No pneumothorax. ASSESSMENT: 1. Cough and shortness of breath, likely viral upper respiratory infection. 2. Hypertension. 3. End-stage renal disease, on hemodialysis. 4. Schizoaffective disorder. PLAN: 1. The patient is admitted to telemetry. 2. hemodialysis today. 3. Antibiotic/azithromycin for possibly bronchitis. 4. TTE. 5. Renal consult for dialysis. 6. Guaifenesin with codeine. 7. DVT prophylaxis. 8. Full Code. Douglas Johnson MD DR: KERVIN JOB#: [id number] CC: BOBBY
[2018-07-30] MEDS: guaiFENesin w/Codeine 5ml Liq ud ORAL PRN (22:28)
[2018-07-30] MEDS: LATUDA 40 MG ORAL SCH (22:40)
[2018-07-31] VITALS: BP 144/62
[2018-07-31 04:00] VITALS: BP 159/72
[2018-07-31] MEDS: guaiFENesin w/Codeine 5ml Liq ud ORAL PRN ×2 (04:00→21:15)
--- NOTE | 2018-07-31 07:09 | NUR ---
HAND-OFF: Report given to MARCIN James. pt stable.
--- NOTE | 2018-07-31 07:12 | NUR ---
NURSE NOTES: Report received from MARCIN Auguste. Patient lying comfortably in bed, HOB at 45. Denies any pain or SOB. Complains of cough but replied had enough sleep at night. IV site intact, SL. Bed on lowest position, side rails upx2, brakes engaged. Call light within easy reach.
[2018-07-31 08:00] VITALS: BP 147/60
[2018-07-31 08:08] LABS: BASOPHILS % (AUTO) 0.7 % (0.0-2.0); EOSINOPHILS % (AUTO) 3.7 % (0.0-3.0); HEMATOCRIT 30.3 % (37.0-47.0); HEMOGLOBIN 9.7 G/DL (12.0-16.0); LYMPHOCYTES % (AUTO) 16.3 % (20.0-45.0); MEAN CORPUSCULAR VOLUME 99 FL (80-99); NEUTROPHILS % (AUTO) 68.4 % (45.0-75.0); PLATELET COUNT 192 K/UL (150-450); RED BLOOD COUNT 3.05 M/UL (4.20-5.40); RED CELL DISTRIBUTION WIDTH 15.9 % (11.6-14.8); WHITE BLOOD COUNT 5.7 K/UL (4.8-10.8)
[2018-07-31] MEDS: Benzonatate 100mg Perles ORAL SCH ×3 (09:29→17:31)
[2018-07-31] MEDS: guaiFENesin ER 600mg tab ORAL SCH ×2 (09:29→17:31)
[2018-07-31] MEDS: Sensipar 30mg Tab ORAL SCH ×2 (09:29→21:15)
--- NOTE | 2018-07-31 10:10 | NUR ---
NURSE NOTES: Reminder given to Patient to bring Latuda from home. Per pharmacy last dose to be dispensed today. Patient calling family members. Will continue to follow up.
--- NOTE | 2018-07-31 11:43 | Cardiology Progress Note ---
Assessment/Plan Status: stable Assessment/Plan Assessment/Plan Assessment/Plan: Assessment ESRD Anemia Hypertension Hyponatremia Fluid overload CHF Cough Plan: Maintain dialysis Echocardiogram Chest x ray Tessalon for cough Norvasc for hypertension Subjective Cardiovascular: Reports: no symptoms Respiratory: Reports: no symptoms Gastrointestinal/Abdominal: Reports: no symptoms Genitourinary: Reports: no symptoms Subjective No acute events, vitals stable, CXR with CHF Objective Last 24 Hour Vital Signs Date Time Temp Pulse Resp B/P (MAP) Pulse Ox O2 Delivery O2 Flow Rate FiO2 07/31/18 09:44 89 20 98 Nasal Cannula 2.0 28 07/31/18 09:44 99 Nasal Cannula 2.0 28 07/31/18 09:29 80 143/60 07/31/18 08:00 98.1 80 18 147/60 (89) 99 07/31/18 04:00 98.2 89 18 159/72 (101) 99 07/31/18 04:00 89 07/31/18 00:00 98.2 94 18 144/62 (89) 100 07/31/18 00:00 94 07/30/18 21:00 Nasal Cannula 2.0 07/30/18 20:06 84 20 98 Nasal Cannula 2.0 28 07/30/18 20:06 98 Nasal Cannula 2.0 28 07/30/18 20:00 97.7 84 18 152/77 (102) 100 07/30/18 20:00 78 07/30/18 16:00 82 07/30/18 16:00 97.9 81 20 159/75 (103) 96 07/30/18 12:00 98.1 79 20 146/75 (98) 96 07/30/18 12:00 78 General Appearance: no apparent distress, alert EENT: PERRL/EOMI, normal ENT inspection, TMs normal, pharynx normal Neck: non-tender, normal alignment, supple, normal inspection, no JVD Rhythm: NSR, PVCs Cardiovascular: normal peripheral pulses, normal rate Respiratory/Chest: chest wall non-tender, decreased breath sounds, crackles/ rales Abdomen: normal bowel sounds, non tender, soft Extremities: normal range of motion, non-tender, normal inspection Neurologic: 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-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 normal, no motor/sensory deficits Intake and Output 07/30/18 07/31/18 19:00 07:00 Intake Total 260 ml Balance 260 ml Intake Oral 260 ml # Voids 1 Laboratory Tests Test 07/30/18 12:12 07/31/18 07:15 Hepatitis A IgM Antibody Negative (Negative) Hepatitis B Surface Antigen Negative (Negative) Hepatitis B Surface Antibody, Quant 6.3 mIU/mL (Immunity>9.9) Hepatitis B Core IgM Antibody Negative (Negative) Hepatitis C Antibody 0.1 s/co ratio (0.0-0.9) White Blood Count 5.7 K/UL (4.8-10.8) Red Blood Count 3.05 M/UL (4.20-5.40) L Hemoglobin 9.7 G/DL (12.0-16.0) L Hematocrit 30.3 % (37.0-47.0) L Mean Corpuscular Volume 99 FL (80-99) Mean Corpuscular Hemoglobin 31.8 PG (27.0-31.0) H Mean Corpuscular Hemoglobin Concent 32.0 G/DL (32.0-36.0) Red Cell Distribution Width 15.9 % (11.6-14.8) H Platelet Count 192 K/UL (150-450) Mean Platelet Volume 6.8 FL (6.5-10.1) Neutrophils (%) (Auto) 68.4 % (45.0-75.0) Lymphocytes (%) (Auto) 16.3 % (20.0-45.0) L Monocytes (%) (Auto) 11.0 % (1.0-10.0) H Eosinophils (%) (Auto) 3.7 % (0.0-3.0) H Basophils (%) (Auto) 0.7 % (0.0-2.0) Pro-B-Type Natriuretic Peptide 01906 pg/mL (0-125) H Microbiology Date/Time Source Procedure Growth Status 07/29/18 22:25 Blood Blood Culture - Preliminary NO GROWTH AFTER 24 HOURS Resulted 07/29/18 22:20 Blood Blood Culture - Preliminary NO GROWTH AFTER 24 HOURS Resulted 07/29/18 23:00 Rectum Received Douglas Barry MD Jul 31, 2018 11:43
[2018-07-31 12:00] VITALS: BP 143/61
[2018-07-31] MEDS: Azithromycin 500 MG in D5W 275 ML IV SCH (13:27)
--- NOTE | 2018-07-31 14:38 | Internal Med Progress Note ---
Subjective Date of Service: Jul 31, 2018 Physician Name Linus Angelo Attending Physician Radha Verdin M.D. Current Medications Medications (Trade) Dose Ordered Sig/Martha Route PRN Reason Start Time Stop Time Status Last Admin Dose Admin Acetaminophen (Tylenol) 650 mg Q6H PRN ORAL Mild Pain/Temp > 100.5 07/30/18 01:30 08/29/18 01:29 Albuterol/ Ipratropium (Albuterol/ Ipratropium) 3 ml Q6HRT PRN HHN Shortness of Breath 07/30/18 01:30 08/04/18 01:29 Amlodipine Besylate (Norvasc) 10 mg DAILY ORAL 07/31/18 09:00 08/30/18 08:59 07/31/18 09:29 Azithromycin 500 mg/Dextrose 275 ml @ 275 mls/hr Q24HRS IV 07/30/18 13:00 08/05/18 13:59 07/31/18 13:27 Benzonatate (Tessalon Perles) 100 mg THREE TIMES A DAY ORAL 07/30/18 13:00 08/29/18 12:59 07/31/18 13:27 Cinacalcet (Sensipar) 90 mg Q12HR ORAL 07/30/18 09:00 08/29/18 08:59 07/31/18 09:29 Divalproex Sodium (Depakote) 1,500 mg QHS ORAL 07/30/18 01:30 08/29/18 01:29 07/30/18 22:14 Guaifenesin (Mucinex ER) 600 mg TWICE A DAY ORAL 07/30/18 18:00 08/29/18 17:59 07/31/18 09:29 Guaifenesin (Robitussin) 100 mg Q4H PRN ORAL For Cough 07/30/18 12:00 08/29/18 11:59 Guaifenesin/ Codeine Phosphate (Robitussin with codeine) 5 ml Q6H PRN ORAL For Cough 07/30/18 18:30 08/29/18 18:29 07/31/18 04:00 Patient Own Medication (Patient's Own Med) 1 ea QHS ORAL 07/30/18 22:45 08/29/18 22:44 07/30/18 22:40 Trazodone HCl (Desyrel) 25 mg BEDTIME ORAL 07/30/18 01:30 08/29/18 01:29 07/30/18 22:15 Allergies: Coded Allergies: No Known Allergies (Unverified , 09/15/17) ROS Limited/Unobtainable: No Constitutional: Reports: no symptoms HEENT: Reports: no symptoms Cardiovascular: Reports: no symptoms Respiratory: Reports: cough, shortness of breath Gastrointestinal/Abdominal: Reports: no symptoms Genitourinary: Reports: no symptoms Neurologic/Psychiatric: Reports: no symptoms Subjective 67 YO F admitted with shortness of breath. Now CHF. Cover for Int Med-DR Johnson Objective Last Vital Signs Date Time Temp Pulse Resp B/P (MAP) Pulse Ox O2 Delivery O2 Flow Rate FiO2 07/31/18 09:44 89 20 98 Nasal Cannula 2.0 28 07/31/18 09:29 143/60 07/31/18 08:00 98.1 General Appearance: WD/WN, no apparent distress, alert EENT: PERRL/EOMI, normal ENT inspection Neck: non-tender, normal alignment, supple, normal inspection Cardiovascular: normal peripheral pulses, normal rate, regular rhythm, no gallop/murmur, no JVD Respiratory/Chest: chest wall non-tender, no accessory muscle use, respiratory distress, crackles/rales, rhonchi - bilaterally, expiratory wheezing Abdomen: normal bowel sounds, non tender, soft, no organomegaly, no mass Extremities: normal range of motion, non-tender Neurologic: manager package II-XII grossly normal, no motor/sensory deficits Skin: normal pigmentation, warm/dry Laboratory Tests Test 07/31/18 07:15 White Blood Count 5.7 K/UL (4.8-10.8) Red Blood Count 3.05 M/UL (4.20-5.40) L Hemoglobin 9.7 G/DL (12.0-16.0) L Hematocrit 30.3 % (37.0-47.0) L Mean Corpuscular Volume 99 FL (80-99) Mean Corpuscular Hemoglobin 31.8 PG (27.0-31.0) H Mean Corpuscular Hemoglobin Concent 32.0 G/DL (32.0-36.0) Red Cell Distribution Width 15.9 % (11.6-14.8) H Platelet Count 192 K/UL (150-450) Mean Platelet Volume 6.8 FL (6.5-10.1) Neutrophils (%) (Auto) 68.4 % (45.0-75.0) Lymphocytes (%) (Auto) 16.3 % (20.0-45.0) L Monocytes (%) (Auto) 11.0 % (1.0-10.0) H Eosinophils (%) (Auto) 3.7 % (0.0-3.0) H Basophils (%) (Auto) 0.7 % (0.0-2.0) Pro-B-Type Natriuretic Peptide 18064 pg/mL (0-125) H Microbiology Date/Time Source Procedure Growth Status 07/29/18 22:25 Blood Blood Culture - Preliminary NO GROWTH AFTER 24 HOURS Resulted 07/29/18 22:20 Blood Blood Culture - Preliminary NO GROWTH AFTER 24 HOURS Resulted 07/29/18 23:00 Rectum Received Intake and Output 07/30/18 07/31/18 19:00 07:00 Intake Total 260 ml Balance 260 ml Intake Oral 260 ml # Voids 1 Assessment/Plan Problem List: (1) CHF (congestive heart failure) Assessment & Plan: Volume overload. Continue dialysis. See cardiology note. (2) ESRD (end stage renal disease) on dialysis Assessment & Plan: Last hemodialysis Thu07/30/18. See nephrology note. (3) HTN (hypertension) Assessment & Plan: Continue amlodipine (4) Schizoaffective disorder (5) Dyspnea (6) Bronchitis Assessment & Plan: Continue azithromycin Status: not improved Linus Angelo MD Jul 31, 2018 14:38
[2018-07-31 16:00] VITALS: BP 148/62
--- NOTE | 2018-07-31 17:30 | NUR ---
NURSE NOTES: Informed Dr. Barry, Patient asking about osha inspector visit.
--- NOTE | 2018-07-31 17:41 | NUR ---
NURSE NOTES: Per MD visited this morning. Will visit again 08/01. Aware of labs and Pt. condition.
--- NOTE | 2018-07-31 19:10 | NUR ---
NURSE NOTES: Reminder given to night RN to follow up on home medication.
--- NOTE | 2018-07-31 19:10 | NUR ---
NURSE NOTES: Informed Dr. Zavala & Dr. Her regarding lab D-dimer.
--- NOTE | 2018-07-31 19:50 | NUR ---
HAND-OFF: Report given to MARCIN Auguste. Patient in stable condition.
--- NOTE | 2018-07-31 19:51 | NUR ---
NURSE NOTES: Received pt from MARCIN James. Pt asleep. Bed in lowest position. Call light within reach. Will continue to monitor.
[2018-07-31 20:00] VITALS: BP 135/69
[2018-07-31] MEDS: LATUDA 40 MG ORAL SCH (21:15)
[2018-07-31] MEDS: TraZODone 50mg tab ORAL SCH (21:15)
[2018-07-31] MEDS: Depakote 500mg tab ORAL SCH (21:15)
--- NOTE | 2018-07-31 22:01 | Nephrology Progress Note ---
Assessment/Plan Problem List: (1) Renal failure (2) Dyspnea (3) CHF (congestive heart failure) (4) Schizoaffective disorder (5) ESRD (end stage renal disease) on dialysis (6) Bronchitis (7) HTN (hypertension) Plan #ESRD on HD on /?F #Volume overload #acute on chronic CHF #Schizoaffective disorder - next HD on thursday - duonebs - azithromycin 500mg IV daily - 2d echo noted - cardiology consult - resume home meds - monitor BP - DVT ppx Subjective Interval Events/Complaints s/p HD yesterday cough slightly bertter evaluated by cardiology Constitutional: Reports: malaise HEENT: Denies: no symptoms, eye pain, blurred vision, tearing, double vision, ear pain, ear discharge, nose pain, nose congestion, throat pain, throat swelling, mouth pain, mouth swelling, other Genitourinary: Denies: no symptoms, burning, discharge, frequency, flank pain, hematuria, incontinence, pain, urgency, other Neurologic/Psychiatric: Denies: no symptoms, anxiety, depressed, emotional problems, headache, numbness, paresthesia, pre-existing deficit, seizure, tingling, tremors, weakness, other Objective Objective Last 24 Hour Vital Signs Date Time Temp Pulse Resp B/P (MAP) Pulse Ox O2 Delivery O2 Flow Rate FiO2 07/31/18 19:57 98 Nasal Cannula 2.0 28 07/31/18 19:56 80 18 97 Nasal Cannula 2.0 28 07/31/18 16:00 98.1 79 18 148/62 (90) 97 07/31/18 16:00 75 07/31/18 12:00 97.9 84 18 143/61 (88) 99 07/31/18 12:00 74 07/31/18 09:44 89 20 98 Nasal Cannula 2.0 28 07/31/18 09:44 99 Nasal Cannula 2.0 28 07/31/18 09:29 80 143/60 07/31/18 09:00 Nasal Cannula 2.0 07/31/18 08:00 98.1 80 18 147/60 (89) 99 07/31/18 08:00 84 07/31/18 04:00 98.2 89 18 159/72 (101) 99 07/31/18 04:00 89 07/31/18 00:00 98.2 94 18 144/62 (89) 100 07/31/18 00:00 94 Intake and Output 07/30/18 07/31/18 19:00 07:00 Intake Total 260 ml Balance 260 ml Intake Oral 260 ml # Voids 1 Laboratory Tests 07/31/18 07:15: White Blood Count 5.7, Red Blood Count 3.05L, Hemoglobin 9.7L, Hematocrit 30.3L , Mean Corpuscular Volume 99, Mean Corpuscular Hemoglobin 31.8H, Mean Corpuscular Hemoglobin Concent 32.0, Red Cell Distribution Width 15.9H, Platelet Count 192, Mean Platelet Volume 6.8, Neutrophils (%) (Auto) 68.4, Lymphocytes (%) (Auto) 16.3L, Monocytes (%) (Auto) 11.0H, Eosinophils (%) (Auto ) 3.7H, Basophils (%) (Auto) 0.7, Pro-B-Type Natriuretic Peptide 54468P Height (Feet): 5 Height (Inches): 6.00 Weight (Pounds): 208 General Appearance: WD/WN, no apparent distress EENT: PERRL/EOMI Neck: non-tender Cardiovascular: normal peripheral pulses, normal rate, regularly irregular, no gallop/murmur Respiratory/Chest: chest wall non-tender, lungs clear, normal breath sounds Abdomen: normal bowel sounds, non tender, soft Genitourinary/Rectal: normal genital exam Neurologic: no motor/sensory deficits, abnormal gait, alert, oriented x 3 Radha Verdin M.D. Jul 31, 2018 22:01
[2018-08-01] VITALS (7 sets, daily range): BP systolic 124–193; BP diastolic 57–92
[2018-08-01] MEDS: guaiFENesin w/Codeine 5ml Liq ud ORAL PRN ×2 (06:22→21:04)
--- NOTE | 2018-08-01 07:59 | NUR ---
HAND-OFF: Report given to Colette charge nurse.
[2018-08-01] MEDS: Sensipar 30mg Tab ORAL SCH ×2 (09:27→20:51)
[2018-08-01] MEDS: Benzonatate 100mg Perles ORAL SCH ×3 (09:27→17:22)
[2018-08-01] MEDS: guaiFENesin ER 600mg tab ORAL SCH ×2 (09:27→17:22)
--- NOTE | 2018-08-01 09:54 | Cardiology Progress Note ---
Assessment/Plan Status: stable Assessment/Plan Assessment/Plan Assessment/Plan: Assessment ESRD Anemia Hypertension Hyponatremia Fluid overload CHF Cough Plan: Maintain dialysis Echocardiogram reviewed, mild PAH, normal LV function, grade 1 diastolic dysfunction, no significant valvular disease Chest x ray Suspected right pleural effusion Tessalon for cough Breathing treatments prn Norvasc for hypertension Clear for discharge Subjective Cardiovascular: Reports: no symptoms Respiratory: Reports: no symptoms Gastrointestinal/Abdominal: Reports: no symptoms Genitourinary: Reports: no symptoms Subjective No acute events, vitals stable, CXR with CHF Complains of cough and wheezing TTe with LVEF 60% diastolic dysfunction mild PAH Objective Last 24 Hour Vital Signs Date Time Temp Pulse Resp B/P (MAP) Pulse Ox O2 Delivery O2 Flow Rate FiO2 08/01/18 09:36 76 140/74 08/01/18 09:06 85 18 99 Nasal Cannula 2.0 28 08/01/18 09:06 99 Nasal Cannula 2.0 28 08/01/18 08:00 97.7 76 20 140/74 (96) 93 08/01/18 04:00 82 08/01/18 04:00 98.2 87 16 193/92 (125) 97 08/01/18 00:00 97.9 91 16 124/57 (79) 97 08/01/18 00:00 85 07/31/18 21:00 Nasal Cannula 2.0 07/31/18 20:00 80 07/31/18 20:00 98.0 80 16 135/69 (91) 100 07/31/18 19:57 98 Nasal Cannula 2.0 28 07/31/18 19:56 80 18 97 Nasal Cannula 2.0 28 07/31/18 16:00 98.1 79 18 148/62 (90) 97 07/31/18 16:00 75 07/31/18 12:00 97.9 84 18 143/61 (88) 99 07/31/18 12:00 74 General Appearance: no apparent distress EENT: PERRL/EOMI, normal ENT inspection, TMs normal, pharynx normal Neck: non-tender, normal alignment, supple, normal inspection, no JVD Rhythm: NSR Cardiovascular: normal peripheral pulses, normal rate Respiratory/Chest: chest wall non-tender, expiratory wheezing Abdomen: normal bowel sounds, non tender, soft, no organomegaly, no mass Extremities: normal range of motion, non-tender, normal inspection, no calf tenderness, no swelling 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 Complete 07/29/18 23:00 Rectum VRE Culture - Final NO VANCOMYCIN RESISTANT ENTEROCOCCUS ... Complete Douglas Barry MD Aug 01, 2018 09:54
--- NOTE | 2018-08-01 10:00 | NUR ---
NURSE NOTES: Received patient A/A/Ox4. able to verbalize needs. Patient lying comfortably in bed, HOB elevated to alleviate ventilation. Denies any pain or SOB. RT called to give HHN and cough meds are to be given. IV site intact. Bed in the lowest position, side rails upx3, brakes engaged and alarm is activated. Call light within reach. Patient was concerned about her own meds that was brought in on admission. She had the impression that it got lost. Three(3) receipts are in the chart and explained to patient that her own meds are in the pharmacy stored while she is hospitalize. will cont to monitor.
--- NOTE | 2018-08-01 12:01 | Nephrology Progress Note ---
Assessment/Plan Problem List: (1) Renal failure (2) Dyspnea (3) CHF (congestive heart failure) (4) Schizoaffective disorder (5) ESRD (end stage renal disease) on dialysis (6) Bronchitis (7) HTN (hypertension) Plan #ESRD on HD on /?F #Volume overload #acute on chronic CHF #Schizoaffective disorder - next HD on thursday - dunadiabs - azithromycin 500mg IV daily - 2d echo noted-> LVEF 60% diastolic dysfunction mild PAH - cardiology consult - [facility] for BP control - resume home meds - monitor BP - DVT ppx Subjective Interval Events/Complaints breathing improving less sputum no fevers or chills no nausea or emesis Plan for HD tomorrow Objective Objective Last 24 Hour Vital Signs Date Time Temp Pulse Resp B/P (MAP) Pulse Ox O2 Delivery O2 Flow Rate FiO2 08/01/18 10:14 28 08/01/18 10:14 85 20 99 Nasal Cannula 2.0 28 08/01/18 10:14 85 20 99 Nasal Cannula 2.0 28 08/01/18 10:06 82 08/01/18 09:55 Nasal Cannula 2.0 08/01/18 09:36 76 140/74 08/01/18 09:06 85 18 99 Nasal Cannula 2.0 28 08/01/18 09:06 99 Nasal Cannula 2.0 28 08/01/18 08:00 97.7 76 20 140/74 (96) 93 08/01/18 04:00 82 08/01/18 04:00 98.2 87 16 193/92 (125) 97 08/01/18 00:00 97.9 91 16 124/57 (79) 97 08/01/18 00:00 85 07/31/18 21:00 Nasal Cannula 2.0 07/31/18 20:00 80 07/31/18 20:00 98.0 80 16 135/69 (91) 100 07/31/18 19:57 98 Nasal Cannula 2.0 28 07/31/18 19:56 80 18 97 Nasal Cannula 2.0 28 07/31/18 16:00 98.1 79 18 148/62 (90) 97 07/31/18 16:00 75 Intake and Output 07/31/18 08/01/18 18:59 06:59 Intake Total 240 ml Balance 240 ml Intake Oral 240 ml # Voids 3 Height (Feet): 5 Height (Inches): 6.00 Weight (Pounds): 208 General Appearance: WD/WN, no apparent distress EENT: PERRL/EOMI Neck: non-tender Cardiovascular: normal peripheral pulses, normal rate, regular rhythm, regularly irregular Respiratory/Chest: chest wall non-tender, lungs clear, normal breath sounds Abdomen: normal bowel sounds, non tender, soft Extremities: normal range of motion, non-tender, normal inspection Neurologic: alert, oriented x 3, normal mood/affect Radha Verdin M.D. Aug 01, 2018 12:01
--- NOTE | 2018-08-01 12:27 | Cardiology Report ---
APPROVED REPORT EXAM: Two-dimensional and M-mode echocardiogram with Doppler and color Doppler. INDICATION LV function M-Mode DIMENSIONS IVSd1.4 (0.7-1.1cm)Left Atrium (MM)3.7 (1.6-4.0cm) LVDd4.9 (3.5-5.6cm)Aortic Root2.4 (2.0-3.7cm) PWd1.4 (0.7-1.1cm)Aortic Cusp Exc.1.4 (1.5-2.0cm) IVSs1.8 cm LVDs2.9 (2.5-4.0cm) PWs1.9 cm Technically difficult study due to poor acoustical windows. Normal left ventricular chamber size, systolic function and wall motion to extent visualized. Left ventricular ejection fraction estimated to be 60 %. Borderline mild left ventricular hypertrophy. No evidence of pericardial effusion. Left atrial size at upper limits of normal. Right cardiac chamber sizes are within normal limits. Aortic valve calcification with decreased cusp excursion c/w aortic stenosis. Thickened mitral valve leaflets with normal excursion. Mitral annulus and aortic root calcification. Pulmonic valve not well visualized. Normal tricuspid valve structure. IVC measured at cm without physiologic collapse suggestive of increased RA pressure. A color flow and spectral Doppler study was performed and revealed: Peak aortic valve gradient of 31 mm Hg and a mean of 15 mmHg. Aortic valve area 1.5 cm2 calculated by continuity equation. Trace to mild mitral regurgitation. Mitral diastolic velocities suggest reduced left ventricular relaxation c/w mild LV diastolic dysfunction (Grade I). Mild tricuspid regurgitation. Tricuspid systolic velocities suggests peak right ventricular systolic pressure of 41 mmHg, consistent with mild pulmonary hypertension.
--- NOTE | 2018-08-01 13:45 | Internal Med Progress Note ---
Subjective Date of Service: Aug 01, 2018 Physician Name Linus Angelo Attending Physician Radha Verdin M.D. Current Medications Medications (Trade) Dose Ordered Sig/Martha Route PRN Reason Start Time Stop Time Status Last Admin Dose Admin Acetaminophen (Tylenol) 650 mg Q6H PRN ORAL Mild Pain/Temp > 100.5 07/30/18 01:30 08/29/18 01:29 Albuterol/ Ipratropium (Albuterol/ Ipratropium) 3 ml Q6HRT PRN HHN Shortness of Breath 07/30/18 01:30 08/04/18 01:29 08/01/18 10:13 Amlodipine Besylate (Norvasc) 10 mg DAILY ORAL 07/31/18 09:00 08/30/18 08:59 08/01/18 09:36 Azithromycin 500 mg/Dextrose 275 ml @ 275 mls/hr Q24HRS IV 07/30/18 13:00 08/05/18 13:59 07/31/18 13:27 Benzonatate (Tessalon Perles) 100 mg THREE TIMES A DAY ORAL 07/30/18 13:00 08/29/18 12:59 08/01/18 11:56 Cinacalcet (Sensipar) 90 mg Q12HR ORAL 07/30/18 09:00 08/29/18 08:59 08/01/18 09:27 Divalproex Sodium (Depakote) 1,500 mg QHS ORAL 07/30/18 01:30 08/29/18 01:29 07/31/18 21:15 Guaifenesin (Mucinex ER) 600 mg TWICE A DAY ORAL 07/30/18 18:00 08/29/18 17:59 08/01/18 09:27 Guaifenesin (Robitussin) 100 mg Q4H PRN ORAL For Cough 07/30/18 12:00 08/29/18 11:59 Guaifenesin/ Codeine Phosphate (Robitussin with codeine) 5 ml Q6H PRN ORAL For Cough 07/30/18 18:30 08/29/18 18:29 08/01/18 06:22 Patient Own Medication (Patient's Own Med) 1 ea QHS ORAL 07/30/18 22:45 08/29/18 22:44 07/31/18 21:15 Trazodone HCl (Desyrel) 25 mg BEDTIME ORAL 07/30/18 01:30 08/29/18 01:29 07/31/18 21:15 Allergies: Coded Allergies: No Known Allergies (Unverified , 09/15/17) ROS Limited/Unobtainable: No Constitutional: Reports: no symptoms HEENT: Reports: no symptoms Cardiovascular: Reports: no symptoms Gastrointestinal/Abdominal: Reports: no symptoms Genitourinary: Reports: no symptoms Neurologic/Psychiatric: Reports: no symptoms Subjective 67 YO F admitted with shortness of breath. Now CHF. Cover for Int Med-DR Johnson Objective Last Vital Signs Date Time Temp Pulse Resp B/P (MAP) Pulse Ox O2 Delivery O2 Flow Rate FiO2 08/01/18 12:00 97.5 88 20 156/68 (97) 95 08/01/18 10:14 28 08/01/18 10:14 Nasal Cannula 2.0 Microbiology Date/Time Source Procedure Growth Status 07/29/18 22:25 Blood Blood Culture - Preliminary NO GROWTH AFTER 48 HOURS Resulted 07/29/18 22:20 Blood Blood Culture - Preliminary NO GROWTH AFTER 48 HOURS Resulted 07/29/18 23:00 Nasal Nares MRSA Culture - Final NO METHICILLIN RESISTANT STAPH AUREUS... Complete 07/29/18 23:00 Rectum - Final NO CARBAPENEM-RESISTANT ENTEROBACTERI... Complete 07/29/18 23:00 Rectum VRE Culture - Final NO VANCOMYCIN RESISTANT ENTEROCOCCUS ... Complete Intake and Output 07/31/18 08/01/18 19:00 07:00 Intake Total 380 ml Balance 380 ml Intake Oral 380 ml # Voids 6 Assessment/Plan Problem List: (1) CHF (congestive heart failure) Assessment & Plan: Volume overload. Continue dialysis. See cardiology note. (2) ESRD (end stage renal disease) on dialysis Assessment & Plan: Last hemodialysis 07/30/18. See nephrology note. (3) HTN (hypertension) Assessment & Plan: Continue amlodipine (4) Schizoaffective disorder (5) Dyspnea (6) Bronchitis Assessment & Plan: Continue azithromycin Linus Angelo MD Aug 01, 2018 13:44
[2018-08-01] MEDS: Azithromycin 500 MG in D5W 275 ML IV SCH (13:52)
[2018-08-01] MEDS ORDERED: HYDROcodone/Acetamin 10/325 tab ORAL PRN (14:00)
[2018-08-01] MEDS ORDERED: HYDROcodone/Acetamin 5/325 tab ORAL PRN (14:00)
--- NOTE | 2018-08-01 19:13 | NUR ---
HAND-OFF: Report given to Lilliam.
--- NOTE | 2018-08-01 19:30 | NUR ---
NURSE NOTES: RECEIVED PATIENT LYING IN BED, AWAKE, ALERT/ORIENTED X4, VERBALLY RESPONSIVE, DENIES PAIN. NO SIGNS AND SYMPTOMS OF ACUTE CARDIO RESPIRATORY DISTRESS/SHORTNESS OF BREATH, NO PERIPHERAL EDEMA NOTED. SCD'S INTACT TO BILATERAL LOWER EXTREMITIES FOR DVT PROPHYLAXIS. ABDOMEN OBESE/FIRM/BOWEL SOUNDS HYPOACTIVE, DENIES TENDERNESS. HD PATIENT, FISTULA/LEFT THIGH, BRUITT AUDIBLE/THRILL PALPABLE, HD 07/30/18, 3L REMOVED. SIDE RAILS UP X3/BED IN LOWEST POSITION FOR SAFETY. ENCOURAGED PATIENT TO UTILIZE CALL LIGHT FOR ASSISTANCE. VERBALIZED UNDERSTANDING. NAD.
[2018-08-01] MEDS: TraZODone 50mg tab ORAL SCH (20:51)
[2018-08-01] MEDS: Depakote 500mg tab ORAL SCH (20:51)
[2018-08-01] MEDS: LATUDA 40 MG ORAL SCH (20:52)
[2018-08-02] VITALS: BP 150/69
[2018-08-02 04:00] VITALS: BP 148/65
[2018-08-02] MEDS: guaiFENesin w/Codeine 5ml Liq ud ORAL PRN ×3 (04:54→20:08)
--- NOTE | 2018-08-02 06:10 | NUR ---
NURSE NOTES: RESTED WELL THROUGHOUT THE NIGHT, NO SIGNS AND SYMPTOMS OF ACUTE CARDIO RESPIRATORY DISTRESS/SHORTNESS OF BREATH, DENIES CHEST PAIN, NOTED WITH DRY COUGH, MEDICATED WITH ROBITUSSIN THROUGHOUT THE NIGHT ORDERED, TOLERATED WELL. NAD.
--- NOTE | 2018-08-02 07:19 | NUR ---
HAND-OFF: Report given to MARCIN SHAW.
[2018-08-02 07:23] LABS: BASOPHILS % (AUTO) 0.9 % (0.0-2.0); HEMATOCRIT 29.2 % (37.0-47.0); HEMOGLOBIN 9.6 G/DL (12.0-16.0); LYMPHOCYTES % (AUTO) 15.6 % (20.0-45.0); MEAN CORPUSCULAR VOLUME 98 FL (80-99); MONOCYTES % (AUTO) 11.3 % (1.0-10.0); NEUTROPHILS % (AUTO) 68.2 % (45.0-75.0); PLATELET COUNT 221 K/UL (150-450); RED BLOOD COUNT 2.97 M/UL (4.20-5.40); RED CELL DISTRIBUTION WIDTH 17.4 % (11.6-14.8); WHITE BLOOD COUNT 6.4 K/UL (4.8-10.8)
[2018-08-02 08:00] VITALS: BP 152/76
--- NOTE | 2018-08-02 08:29 | Cardiology Progress Note ---
Assessment/Plan Status: stable Assessment/Plan Assessment/Plan Assessment/Plan: Assessment ESRD Anemia Hypertension Hyponatremia Fluid overload CHF Cough Plan: Maintain dialysis Echocardiogram reviewed, mild PAH, normal LV function, grade 1 diastolic dysfunction, no significant valvular disease Chest x ray Suspected right pleural effusion Tessalon for cough Breathing treatments prn Norvasc for hypertension Clear for discharge Subjective Cardiovascular: Reports: no symptoms Respiratory: Reports: no symptoms Gastrointestinal/Abdominal: Reports: no symptoms Genitourinary: Reports: no symptoms Subjective No acute events, vitals stable, CXR with CHF Complains of cough and wheezing TTe with LVEF 60% diastolic dysfunction mild PAH Objective Last 24 Hour Vital Signs Date Time Temp Pulse Resp B/P (MAP) Pulse Ox O2 Delivery O2 Flow Rate FiO2 08/02/18 04:00 98.6 83 20 148/65 (92) 93 08/02/18 04:00 83 08/02/18 00:00 93 08/02/18 00:00 98.4 93 20 150/69 (96) 92 08/01/18 21:00 144/74 (97) 08/01/18 21:00 Nasal Cannula 2.0 08/01/18 20:16 81 18 98 Nasal Cannula 2.0 28 08/01/18 20:16 98 Nasal Cannula 2.0 28 08/01/18 20:00 84 08/01/18 20:00 98.5 84 18 160/68 (98) 93 08/01/18 16:00 98.2 80 20 133/71 (91) 100 08/01/18 12:00 97.5 88 20 156/68 (97) 95 08/01/18 10:14 28 08/01/18 10:14 85 20 99 Nasal Cannula 2.0 28 08/01/18 10:14 85 20 99 Nasal Cannula 2.0 28 08/01/18 10:06 82 08/01/18 09:55 Nasal Cannula 2.0 08/01/18 09:36 76 140/74 08/01/18 09:06 85 18 99 Nasal Cannula 2.0 28 08/01/18 09:06 99 Nasal Cannula 2.0 28 General Appearance: no apparent distress EENT: PERRL/EOMI, normal ENT inspection Neck: non-tender, normal alignment, supple, normal inspection, no JVD Rhythm: NSR Cardiovascular: normal peripheral pulses, normal rate, regular rhythm Respiratory/Chest: chest wall non-tender, lungs clear, normal breath sounds Abdomen: normal bowel sounds, non tender, soft, no organomegaly, no mass Extremities: normal range of motion, non-tender, normal inspection, no calf tenderness, no swelling 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, no motor/sensory deficits Intake and Output 08/01/18 08/02/18 19:00 07:00 Intake Total 415 ml 270 ml Balance 415 ml 270 ml Intake Oral 140 ml 270 ml IV Total 275 ml # Voids 3 Laboratory Tests Test 08/02/18 06:17 White Blood Count 6.4 K/UL (4.8-10.8) Red Blood Count 2.97 M/UL (4.20-5.40) L Hemoglobin 9.6 G/DL (12.0-16.0) L Hematocrit 29.2 % (37.0-47.0) L Mean Corpuscular Volume 98 FL (80-99) Mean Corpuscular Hemoglobin 32.4 PG (27.0-31.0) H Mean Corpuscular Hemoglobin Concent 33.0 G/DL (32.0-36.0) Red Cell Distribution Width 17.4 % (11.6-14.8) H Platelet Count 221 K/UL (150-450) Mean Platelet Volume 8.1 FL (6.5-10.1) Neutrophils (%) (Auto) 68.2 % (45.0-75.0) Lymphocytes (%) (Auto) 15.6 % (20.0-45.0) L Monocytes (%) (Auto) 11.3 % (1.0-10.0) H Eosinophils (%) (Auto) 4.0 % (0.0-3.0) H Basophils (%) (Auto) 0.9 % (0.0-2.0) Douglas Barry MD Aug 02, 2018 08:29
--- NOTE | 2018-08-02 08:29 | NUR ---
NURSE NOTES: Received report from Lilliam BURCH. pt on nuclear monitoring technician no signs of cardiac or respiratory distress. Pt in bed ate breakfast. Bed in lowest position and locked. Call light with in reach. Will continue to follow plan of care.
[2018-08-02] MEDS: guaiFENesin ER 600mg tab ORAL SCH ×2 (09:16→20:09)
[2018-08-02] MEDS: Benzonatate 100mg Perles ORAL SCH ×3 (09:17→20:06)
[2018-08-02] MEDS: Sensipar 30mg Tab ORAL SCH ×2 (09:17→22:01)
[2018-08-02 09:37] LABS: ALANINE AMINOTRANSFERASE 9 U/L (12-78); ALBUMIN 2.7 G/DL (3.4-5.0); ALBUMIN/GLOBULIN RATIO 0.7 (1.0-2.7); ALKALINE PHOSPHATASE 49 U/L (46-116); ANION GAP 8 mmol/L (5-15); ASPARTATE AMINO TRANSFERASE 7 U/L (15-37); BILIRUBIN,TOTAL 0.7 MG/DL (0.2-1.0); BLOOD UREA NITROGEN 36 mg/dL (7-18); CALCIUM 9.5 MG/DL (8.5-10.1); CARBON DIOXIDE 30 MMOL/L (21-32); CHLORIDE 91 MMOL/L (98-107); CREATININE 9.9 MG/DL (0.55-1.30); POTASSIUM 4.1 MMOL/L (3.5-5.1); SODIUM 129 MMOL/L (136-145)
--- NOTE | 2018-08-02 10:40 | NUR ---
NURSE NOTES: Calledr [facility] to schedule dialysis for today spoke to Darai.
[2018-08-02 12:00] VITALS: BP 131/68
--- NOTE | 2018-08-02 12:18 | NUR ---
RD ASSESSMENT & RECOMMENDATIONS SEE CARE ACTIVITY FOR COMPLETE ASSESSMENT DAILY ESTIMATED NEEDS: Needs based on ESRD on HD, obese 68kg 25-30 kcals/kg [id number] total kcals 1.2-1.8 g protein/kg 82-122 g total protein Fluid per MD NUTRITION DIAGNOSIS: Increased protein needs r/t renal dysfunction as evidenced by pt w/ ESRD on HD PO DIET RECOMMENDATIONS: RENAL DIET ADDITIONAL RECOMMENDATIONS: 1) Obtain a standing weight as able 2) Zimmerman regimen- last bm noted 07/28 3) Lytes daily (Low Na)
--- NOTE | 2018-08-02 12:49 | Nephrology Progress Note ---
Assessment/Plan Problem List: (1) Renal failure (2) Dyspnea (3) CHF (congestive heart failure) (4) Schizoaffective disorder (5) ESRD (end stage renal disease) on dialysis (6) Bronchitis (7) HTN (hypertension) Plan #ESRD on HD on M/W/F #Volume overload #acute on chronic CHF #Schizoaffective disorder - next HD today - duonebs - azithromycin 500mg IV daily - 2d echo noted-> LVEF 60% diastolic dysfunction mild PAH - cardiology consult - [facility] for BP control - resume home meds - monitor BP - DVT ppx Subjective Constitutional: Denies: no symptoms, chills, diaphoresis, fever, malaise, weakness, other HEENT: Denies: no symptoms, eye pain, blurred vision, tearing, double vision, ear pain, ear discharge, nose pain, nose congestion, throat pain, throat swelling, mouth pain, mouth swelling, other Genitourinary: Denies: no symptoms, burning, discharge, frequency, flank pain, hematuria, incontinence, pain, urgency, other Neurologic/Psychiatric: Denies: no symptoms, anxiety, depressed, emotional problems, headache, numbness, paresthesia, pre-existing deficit, seizure, tingling, tremors, weakness, other Subjective No acute events overnight Breathing improved plan for HD today Objective Objective Last 24 Hour Vital Signs Date Time Temp Pulse Resp B/P (MAP) Pulse Ox O2 Delivery O2 Flow Rate FiO2 08/02/18 09:17 93 152/76 08/02/18 08:00 97.6 93 18 152/76 (101) 93 08/02/18 08:00 87 08/02/18 04:00 98.6 83 20 148/65 (92) 93 08/02/18 04:00 83 08/02/18 00:00 93 08/02/18 00:00 98.4 93 20 150/69 (96) 92 08/01/18 21:00 144/74 (97) 08/01/18 21:00 Nasal Cannula 2.0 08/01/18 20:16 81 18 98 Nasal Cannula 2.0 28 08/01/18 20:16 98 Nasal Cannula 2.0 28 08/01/18 20:00 84 08/01/18 20:00 98.5 84 18 160/68 (98) 93 08/01/18 16:00 98.2 80 20 133/71 (91) 100 Intake and Output 08/01/18 08/02/18 18:59 06:59 Intake Total 555 ml 270 ml Balance 555 ml 270 ml Intake Oral 280 ml 270 ml IV Total 275 ml # Voids 6 Laboratory Tests 08/02/18 06:17: White Blood Count 6.4, Red Blood Count 2.97L, Hemoglobin 9.6L, Hematocrit 29.2L , Mean Corpuscular Volume 98, Mean Corpuscular Hemoglobin 32.4H, Mean Corpuscular Hemoglobin Concent 33.0, Red Cell Distribution Width 17.4H, Platelet Count 221, Mean Platelet Volume 8.1, Neutrophils (%) (Auto) 68.2, Lymphocytes (%) (Auto) 15.6L, Monocytes (%) (Auto) 11.3H, Eosinophils (%) (Auto ) 4.0H, Basophils (%) (Auto) 0.9 08/02/18 08:30: Sodium Level 129L, Potassium Level 4.1, Chloride Level 91L, Carbon Dioxide Level 30, Anion Gap 8, Blood Urea Nitrogen 36H, Creatinine 9.9H, Estimat Glomerular Filtration Rate 4.7, Glucose Level 128H, Calcium Level 9.5, Total Bilirubin 0.7, Aspartate Amino Transf (AST/SGOT) 7L, Alanine Aminotransferase ( ALT/SGPT) 9L, Alkaline Phosphatase 49, Total Protein 6.6, Albumin 2.7L, Globulin 3.9, Albumin/Globulin Ratio 0.7L Height (Feet): 5 Height (Inches): 6.00 Weight (Pounds): 208 General Appearance: WD/WN, no apparent distress EENT: PERRL/EOMI Neck: non-tender, supple, normal inspection Cardiovascular: normal peripheral pulses, no gallop/murmur, no JVD Respiratory/Chest: lungs clear, normal breath sounds, no respiratory distress Abdomen: normal bowel sounds, non tender, soft, no mass Extremities: normal range of motion, non-tender, normal inspection Neurologic: alert, oriented x 3, responsive Radha Verdin M.D. Aug 02, 2018 12:49
[2018-08-02] MEDS: Azithromycin 250mg tab ORAL SCH (13:47)
--- NOTE | 2018-08-02 15:00 | NUR ---
CASE MANAGEMENT:REVIEW 07/02/18 SI: BRONCHITIS. FLUID OVERLOAD(ESRD) 97.6 93 18 152/76 93% ON 2L/NC NA-129 BUN+36 CR+9.9 GLUCOSE+128 IS: AZITHROMYCIN PO Q24HRS NORVASC PO QD MUCINEX PO BID DEPAKOTE PO QHS : TELEMETRY STATUS DCP: FROM HOME
[2018-08-02] MEDS ORDERED: NORVASC10 MG ORAL (15:36)
--- NOTE | 2018-08-02 15:37 | Discharge Instructions ---
Discharge Instructions Discharge Instructions Follow up with: PCP Call MD/Return to Hospital if: worsening symptoms such as SOB Diet: renal (80g protein, 2GM) Resume Normal Activity?: Yes Activity: resume normal activities For Congestive Heart Failure Reminder Report to your physician any weight gain of 5 pounds or more in one week. Douglas Johnson MD Aug 02, 2018 15:37
--- NOTE | 2018-08-02 15:48 | Discharge Summary ---
Discharge Summary Hospital Course Date of Admission July 29, 2018 at 22:39 Date of Discharge Admitting Diagnosis dyspnea, renal failure tele HPI Fani Mg is a 67 year old female who was admitted on July 29, 2018 at 22:39 for Dyspnea and cough Patient had Bronchitis and was fluid overloaded. She was dialyzed while here. She was started on Zpack for bronchitis (CXR neg for infiltrate) Discharge Medications New Medications: Amlodipine Besylate (Norvasc) 10 Mg Tablet 10 MG ORAL DAILY for 30 Days, #30 TAB Continued Medications: Atenolol* (Tenormin*) 25 Mg Tablet Unknown Dose ORAL DAILY, TAB Cinacalcet Hcl (Sensipar) 90 Mg Tablet 90 MG PO, TAB Divalproex Sodium* (Depakote Er*) 500 Mg Tab.er.24h 500 MG ORAL QHS, TAB 3 tabs at bedtime Lurasidone Hcl (Latuda) 40 Mg Tablet 40 MG PO QHS, TAB Ranitidine Hcl* (Zantac*) 150 Mg Tablet Unknown Dose ORAL DAILY, #30 TAB 0 Refills Trazodone Hcl* (Desyrel*) 50 Mg Tablet 50 MG ORAL BEDTIME, TAB 1/2 tab qhs Discharge Condition Upon Discharge: stable Discharge Disposition Patient was discharged to HOME Discharge Instructions Discharge Instructions Follow up with: PCP Call MD/Return to Hospital if: worsening symptoms such as SOB Activity: resume normal activities Douglas Johnson MD Aug 02, 2018 15:48
[2018-08-02 16:00] VITALS: BP 137/67
--- NOTE | 2018-08-02 17:59 | NUR ---
NURSE NOTES: unable to give 1800 meds pt getting dialysis.
[2018-08-02 20:00] VITALS: BP 137/67
--- NOTE | 2018-08-02 21:38 | NUR ---
HAND-OFF: Report given to Elizabeth BURCH. Addendum: 08/03/18 at 0646 by MARCIN PERDOMO PT. DENIES PAIN VS STABLE. REPORT GIVEN TO NURSE CRENSHAW.
[2018-08-02] MEDS: Depakote 500mg tab ORAL SCH (22:00)
[2018-08-02] MEDS: LATUDA 40 MG ORAL SCH (22:01)
[2018-08-02] MEDS: TraZODone 50mg tab ORAL SCH (22:01)
[2018-08-03] VITALS: BP 137/67
[2018-08-03] MEDS: guaiFENesin w/Codeine 5ml Liq ud ORAL PRN ×2 (03:06→09:35)
[2018-08-03 04:00] VITALS: BP 140/56
--- NOTE | 2018-08-03 06:54 | Cardiology Progress Note ---
Assessment/Plan Status: stable Assessment/Plan Assessment/Plan Assessment/Plan: Assessment ESRD Anemia Hypertension Hyponatremia Fluid overload CHF Cough Plan: Maintain dialysis Echocardiogram reviewed, mild PAH, normal LV function, grade 1 diastolic dysfunction, no significant valvular disease Chest x ray Suspected right pleural effusion Tessalon for cough Breathing treatments prn Norvasc for hypertension Clear for discharge Subjective Cardiovascular: Reports: no symptoms Respiratory: Reports: no symptoms Gastrointestinal/Abdominal: Reports: no symptoms Genitourinary: Reports: no symptoms Subjective No acute events, vitals stable, CXR with CHF Complains of cough and wheezing TTe with LVEF 60% diastolic dysfunction mild PAH Objective Last 24 Hour Vital Signs Date Time Temp Pulse Resp B/P (MAP) Pulse Ox O2 Delivery O2 Flow Rate FiO2 08/03/18 04:00 82 08/03/18 04:00 98.4 79 18 140/56 (84) 08/03/18 00:00 100 08/03/18 00:00 98.0 83 18 137/67 (90) 100 08/02/18 21:00 Nasal Cannula 2.0 08/02/18 20:16 98 Nasal Cannula 2.0 28 08/02/18 20:16 83 18 100 Nasal Cannula 2.0 28 08/02/18 20:00 98.0 83 18 137/67 (90) 100 08/02/18 20:00 85 08/02/18 16:00 84 08/02/18 16:00 98.0 83 18 137/67 (90) 100 08/02/18 12:00 75 08/02/18 12:00 97.8 81 18 131/68 (89) 100 08/02/18 09:17 93 152/76 08/02/18 09:00 Nasal Cannula 2.0 08/02/18 08:00 97.6 93 18 152/76 (101) 93 08/02/18 08:00 87 General Appearance: no apparent distress, alert EENT: PERRL/EOMI, normal ENT inspection, TMs normal, pharynx normal Neck: non-tender, normal alignment, supple, normal inspection, no JVD Rhythm: NSR Cardiovascular: normal rate, regular rhythm Respiratory/Chest: chest wall non-tender, lungs clear, normal breath sounds Abdomen: normal bowel sounds, non tender Extremities: normal range of motion, non-tender, normal inspection 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, no motor/sensory deficits Intake and Output 08/02/18 08/03/18 19:00 07:00 Intake Total 440 ml Balance 440 ml Intake Oral 440 ml Laboratory Tests Test 08/02/18 08:30 Sodium Level 129 MMOL/L (136-145) L Potassium Level 4.1 MMOL/L (3.5-5.1) Chloride Level 91 MMOL/L (98-107) L Carbon Dioxide Level 30 MMOL/L (21-32) Anion Gap 8 mmol/L (5-15) Blood Urea Nitrogen 36 mg/dL (7-18) H Creatinine 9.9 MG/DL (0.55-1.30) H Estimat Glomerular Filtration Rate 4.7 mL/min (>60) Glucose Level 128 MG/DL (74-106) H Calcium Level 9.5 MG/DL (8.5-10.1) Total Bilirubin 0.7 MG/DL (0.2-1.0) Aspartate Amino Transf (AST/SGOT) 7 U/L (15-37) L Alanine Aminotransferase (ALT/SGPT) 9 U/L (12-78) L Alkaline Phosphatase 49 U/L (46-116) Total Protein 6.6 G/DL (6.4-8.2) Albumin 2.7 G/DL (3.4-5.0) L Globulin 3.9 g/dL Albumin/Globulin Ratio 0.7 (1.0-2.7) L Douglas Barry MD Aug 03, 2018 06:54
--- NOTE | 2018-08-03 07:23 | NUR ---
NURSE NOTES Received report from Elizabeth BURCH. Pt just woke up and about to have breakfast in bed. Pt on cardiac cath tech no signs of cardiac or respiratory distress. Bed locked and in lowest position. Call light within reach. Will continue plan of care.
[2018-08-03 07:57] VITALS: BP 129/81
[2018-08-03] MEDS: guaiFENesin ER 600mg tab ORAL SCH (09:35)
[2018-08-03] MEDS: Sensipar 30mg Tab ORAL SCH (09:36)
[2018-08-03] MEDS: Benzonatate 100mg Perles ORAL SCH ×2 (09:40→13:00)
--- NOTE | 2018-08-03 11:23 | NUR ---
NURSE NOTES: pt refused labs, " she will get blood tested tomorrow in dialysis". Pt is aware of low sodium levels.
--- NOTE | 2018-08-03 11:56 | NUR ---
tried to notify Gissell Mg pt's daughter ph is busy unable to leave message. Pt will be DC from hospital today.
[2018-08-03 12:00] VITALS: BP 106/73
--- NOTE | 2018-08-03 12:03 | NUR ---
DISCHARGE PLAN PATIENT HAS BEEN REFERRED TO [facility] T: [phone] F; [phone]
[2018-08-03] MEDS: Azithromycin 250mg tab ORAL SCH (13:00)
--- NOTE | 2018-08-04 14:43 | Cardiology Report ---
APPROVED REPORT EKG Measurement Heart [id number] Normal sinus rhythm Incomplete left bundle branch block Nonspecific ST abnormality Abnormal ECG
== END 2018-08-03 14:19 | disposition home health service (06) | DRG 291 ==
LOC: EMR 21:58 → 2E 22:39 → EDBEDREQ 23:41
PROC: 5A1D70Z Performance of Urinary Filtration, Intermittent, Less than 6 Hours Per Day (ICD-10-PCS; principal; 2018-07-30)
PROC: 5A1D70Z Performance of Urinary Filtration, Intermittent, Less than 6 Hours Per Day (ICD-10-PCS; 2018-08-02)
DX: I13.2 Hypertensive heart and chronic kidney disease with heart failure and with stage 5 chronic kidney disease, or end stage renal disease (principal); N18.6 End stage renal disease; E87.1 Hypo-osmolality and hyponatremia; I50.9 Heart failure, unspecified; E87.79 Other fluid overload; Z99.2 Dependence on renal dialysis; D64.9 Anemia, unspecified; F25.9 Schizoaffective disorder, unspecified; E11.22 Type 2 diabetes mellitus with diabetic chronic kidney disease
CPT/HCPCS: 36415; 71045; 80053; 82550; 82553; 83690; 83880; 84484; 85025; 86705; 86709; 86803; 87040; 87081; 87340; 87517; 93005; 93306; 94640; 94664; 99285; J7620

== ENCOUNTER 2018-08-09 07:32 | Inpatient (IN) | payer MEDICARE, MEDICAID ==
[~2018-08-09] VITALS: Ht 167.6 cm; Wt 98.4 kg
[~2018-08-09 07:32] MED LIST changes: +DEPAKOTE ER500 MG ORAL; +LATUDA40 MG PO; +NORVASC10 MG ORAL; +SENSIPAR90 MG PO; +TRAZODONE HCL50 MG ORAL
--- NOTE | 2018-08-09 07:40 | NUR ---
ED Nurse Note: PT BROUGHT IN BY R68 FROM HOME. AOX4. PT C/O SOB X THIS AM. ON ARRIVAL, RR18, 02 SAT 93% ON RA. NO SIGNS OF RESPIRATORY DISTRESS, RETRACTIONS, OR ACCESSORY MUSCLE USE NOTED. PT ABLE TO SPEAK IN FULL SENTENCES WITHOUT DIFFICULTY. PT STATES SHE IS A DIALYSIS PT AND GOES MWF. PER PT, LAST DIALYSIS WAS THURSDAY AND IS DUE TODAY AT 11AM. PT PRESENTS WITH A FISTULA TO LEFT UPPER LEG. PT HAS HX OF LEFT SIDED MASTECTOMY. ON ASSESSMENT, BP 179/79; DR HOLCOMB AWARE. DR HOLCOMB AT BEDSIDE FOR EVALUATION.
[2018-08-09 08:01] VITALS: BP 179/79
--- NOTE | 2018-08-09 08:01 | NUR ---
ED Nurse Note: PT INFORMED SWABS ARE REQUIRED DUE TO HER BEING ADMITTED TO THE HOSPITAL IN THE LAST 30 DAYS. PT REFUSED CRE/VRE SWAB. MRSA SWAB SENT TO LAB.
[2018-08-09 08:11] LABS: BASOPHILS % (AUTO) 1.1 % (0.0-2.0); EOSINOPHILS % (AUTO) 1.9 % (0.0-3.0); HEMATOCRIT 31.5 % (37.0-47.0); HEMOGLOBIN 10.4 G/DL (12.0-16.0); LYMPHOCYTES % (AUTO) 16.9 % (20.0-45.0); MEAN CORPUSCULAR VOLUME 96 FL (80-99); MONOCYTES % (AUTO) 11.3 % (1.0-10.0); NEUTROPHILS % (AUTO) 68.8 % (45.0-75.0); PLATELET COUNT 230 K/UL (150-450); RED BLOOD COUNT 3.27 M/UL (4.20-5.40); RED CELL DISTRIBUTION WIDTH 15.4 % (11.6-14.8); WHITE BLOOD COUNT 7.2 K/UL (4.8-10.8)
[2018-08-09 08:15] LABS: ANION GAP 11 mmol/L (5-15); BLOOD UREA NITROGEN 31 mg/dL (7-18); CALCIUM 10.7 MG/DL (8.5-10.1); CARBON DIOXIDE 27 MMOL/L (21-32); CHLORIDE 93 MMOL/L (98-107); CREATININE 8.7 MG/DL (0.55-1.30); POTASSIUM 4.1 MMOL/L (3.5-5.1); SODIUM 131 MMOL/L (136-145)
--- NOTE | 2018-08-09 08:15 | Emergency Room Report ---
History of Present Illness General Chief Complaint: Dyspnea/Respdistress Source: Patient, Medical Record Present Illness HPI Patient has a history of renal failure and is on dialysis Thursday. Patient's last dialysis was Thursday. Patient states that she was recently admitted to hospital discharge. She still continues to have worsening shortness of breath since discharge. She states that she is also feeling short of breath for the last couple of days with coughing orthopnea. She denies any chest pain. Denies any leg pain leg swelling. She denies any fever nausea vomiting diarrhea chills. In addition she complains of abdominal discomfort. States that she has difficulty with bowel movements. States that she has not had a bowel movement in 2-1/2 weeks. She states that she is taking MiraLAX without much improvement. She states that she has decreased appetite. No other complaints are noted. Symptoms noted to be moderate to severe. Patient denies any vomiting. Patient states that she is passing gas. No history of melena. Review of medical records show that patient was recently admitted to the [facility] under the care of Dr. Douglas Johnson. No other modifying factors. No other associated signs and symptoms. No other complaints were noted. Allergies: Coded Allergies: No Known Allergies (Unverified , 09/15/17) Patient History Past Medical History: DM, HTN, CAD, renal disease, dialysis Past Surgical History: other - AV fistula left lower extremity Social History: Denies: smoking, alcohol use, drug use Reviewed Nursing Documentation: PMH: Agreed; PSxH: Agreed Nursing Documentation-PM Past Medical History: No History, Except For Hx Cardiac Problems: Yes Hx Hypertension: Yes Hx Diabetes: Yes Hx Cancer: No Hx Gastrointestinal Problems: No Hx Dialysis: Yes - MWF- left leg shunt Hx Neurological Problems: No Review of Systems All Other Systems: negative except mentioned in HPI Physical Exam Vital Signs Date Time Temp Pulse Resp B/P (MAP) Pulse Ox O2 Delivery O2 Flow Rate FiO2 08/09/18 07:29 98.6 100 18 201/103 (135) 94 Room Air Sp02 EP Interpretation: reviewed, normal General Appearance: alert, mild distress Head: atraumatic Eyes: bilateral eye normal inspection ENT: normal ENT inspection, hearing grossly normal, normal voice Neck: normal inspection, full range of motion, supple, no bony tend Respiratory: normal inspection, lungs clear, normal breath sounds, no retraction, no wheezing Cardiovascular #1: regular rate, rhythm, no edema, other - Systolic ejection murmur Gastrointestinal: soft, no guarding, no hernia, distended Genitourinary: no CVA tenderness Musculoskeletal: normal inspection, back normal, normal range of motion, other - Left lower extremity AV fistula Neurologic: normal inspection, alert, responsive, speech normal Psychiatric: normal inspection, judgement/insight normal, mood/affect normal Skin: normal inspection, normal color, no rash Medical Decision Making Diagnostic Impression: Primary Impression: Respiratory distress Additional Impressions: CHF (congestive heart failure) ESRD (end stage renal disease) on dialysis Pleural effusion Fluid overload ER Course Patient presents emergency department today complaining of shortness of breath. Differential diagnoses include acute pneumonia, CHF, acute coronary syndrome, pneumothorax, asthma, COPD flare, just to name a few. Given the severity of the patient's presentation I felt this is a highly complex patient. This patient required extensive workup. Patient's chest x-ray shows evidence of fluid overload CHF and pleural effusion. Because of patient's abdominal discomfort patient will require further work-up. Case was discussed with Dr. Johnson. Patient will be placed on observation. Labs Test 08/09/18 07:54 White Blood Count 7.2 K/UL (4.8-10.8) Red Blood Count 3.27 M/UL (4.20-5.40) Hemoglobin 10.4 G/DL (12.0-16.0) Hematocrit 31.5 % (37.0-47.0) Mean Corpuscular Volume 96 FL (80-99) Mean Corpuscular Hemoglobin 31.7 PG (27.0-31.0) Mean Corpuscular Hemoglobin Concent 32.9 G/DL (32.0-36.0) Red Cell Distribution Width 15.4 % (11.6-14.8) Platelet Count 230 K/UL (150-450) Mean Platelet Volume 6.8 FL (6.5-10.1) Neutrophils (%) (Auto) 68.8 % (45.0-75.0) Lymphocytes (%) (Auto) 16.9 % (20.0-45.0) Monocytes (%) (Auto) 11.3 % (1.0-10.0) Eosinophils (%) (Auto) 1.9 % (0.0-3.0) Basophils (%) (Auto) 1.1 % (0.0-2.0) Sodium Level 131 MMOL/L (136-145) Potassium Level 4.1 MMOL/L (3.5-5.1) Chloride Level 93 MMOL/L (98-107) Carbon Dioxide Level 27 MMOL/L (21-32) Anion Gap 11 mmol/L (5-15) Blood Urea Nitrogen 31 mg/dL (7-18) Creatinine 8.7 MG/DL (0.55-1.30) Estimat Glomerular Filtration Rate 5.6 mL/min (>60) Glucose Level 102 MG/DL (74-106) Calcium Level 10.7 MG/DL (8.5-10.1) Total Bilirubin 0.7 MG/DL (0.2-1.0) Aspartate Amino Transf (AST/SGOT) 21 U/L (15-37) Alanine Aminotransferase (ALT/SGPT) 24 U/L (12-78) Alkaline Phosphatase 54 U/L (46-116) Total Creatine Kinase 19 U/L (26-308) Creatine Kinase MB 1.7 NG/ML (0.0-3.6) Creatine Kinase MB Relative Index 8.9 Troponin I 0.035 ng/mL (0.000-0.056) Pro-B-Type Natriuretic Peptide 01054 pg/mL (0-125) Total Protein 7.4 G/DL (6.4-8.2) Albumin 3.1 G/DL (3.4-5.0) Globulin 4.3 g/dL Albumin/Globulin Ratio 0.7 (1.0-2.7) Lipase 141 U/L (73-393) EKG Diagnostic Results Rate: normal Rhythm: NSR ST Segments: other - Nonspecific Rhythm Strip Diag. Results EP Interpretation: yes Rate: 90 Rhythm: NSR, no PVC's, no ectopy Chest X-Ray Diagnostic Results Chest X-Ray Diagnostic Results : Chest X-Ray Ordered: Yes # of Views/Limited/Complete: 1 View Indication: Shortness of Breath EP Interpretation: Yes Interpretation: no pneumothorax, other - Pulmonary congestion, right pleural effusion Impression: Other - Fluid overload Electronically Signed by: Electronically signed by Ronny Beavers MD Last Vital Signs Date Time Temp Pulse Resp B/P (MAP) Pulse Ox O2 Delivery O2 Flow Rate FiO2 6/10/19 08:01 98.6 92 18 179/79 93 Room Air Status: unchanged Disposition: PLACE IN OBSERVATION Condition: Serious Referrals: NOT CHOSEN IPA/,REFERRING (PCP) Ronny Beavers MD Aug 09, 2018 08:15
--- NOTE | 2018-08-09 08:17 | NUR ---
ED Nurse Note: XRAY AT BEDSIDE.
[2018-08-09 08:28] LABS: ALANINE AMINOTRANSFERASE 24 U/L (12-78); ALBUMIN 3.1 G/DL (3.4-5.0); ALBUMIN/GLOBULIN RATIO 0.7 (1.0-2.7); ALKALINE PHOSPHATASE 54 U/L (46-116); ASPARTATE AMINO TRANSFERASE 21 U/L (15-37); BILIRUBIN,TOTAL 0.7 MG/DL (0.2-1.0); CKMB 1.7 NG/ML (0.0-3.6); CREATINE KINASE 19 U/L (26-308)
--- NOTE | 2018-08-09 08:45 | NUR ---
ED Nurse Note: PT O2 SAT 85%. PT PLACED ON 2L O2 VIA NASAL CANNULA. O2 SAT 94%.
[2018-08-09 08:52] VITALS: BP 158/75
[2018-08-09] MEDS ORDERED: Milk of Magnesia 30ml Ud ORAL PRN (09:45)
--- NOTE | 2018-08-09 09:58 | NUR ---
ED Nurse Note: [facility] CALLED FOR PT TRANSFER. REPORT GIVEN TO MARCIN FREITAS. PT TAKEN UP TO [facility] VIA GURNEY WITH ALL BELONGINGS ACCOMPANIED BY PRIMARY RN. VSS.
--- NOTE | 2018-08-09 10:00 | NUR ---
ED Nurse Note: FILLER AND TRIMMER AT THE BEDSIDE
--- NOTE | 2018-08-09 10:05 | Diagnostic Imaging Report ---
Indication: Cough Comparison: 07/29/2018 A single view chest radiograph was obtained. Findings: There is evidence of a right pleural effusion and pulmonary vascular congestion. The degree of congestion may be slightly worse compared to the previous occasion. Surgical clips are noted in the left axilla. Bones are osteopenic. IMPRESSION: Pulmonary edema. Right pleural effusion
--- NOTE | 2018-08-09 10:30 | NUR ---
NURSE NOTES: Received report from Bentley BURCH, pt a/a/o x4 laying in bed with no signs of distress or other issues at this time.VS: 141/61 H: 81, temp: 97.9, SpO2: 99% on 2L via n/c. pt has a AV shunt on the left thigh for her HD access. pt also has a right AC gauge#20 heplock. RN will carry on admission orders. call light within reach, bed in lowest position, side rales up x2. I will f/u as needed. - RN called HD center at [phone] s/w intake to notify that pt needs HD tx today. she stated that she will add her on for today.
--- NOTE | 2018-08-09 13:14 | Consultation ---
Consult Note Assessment/Plan DICT # [id number] Donato Her MD Aug 09, 2018 13:14
[2018-08-09] MEDS: guaiFENesin ER 600mg tab ORAL SCH (17:09)
--- NOTE | 2018-08-09 18:12 | Consultation ---
History of Present Illness General Date patient seen: Aug 09, 2018 Chief Complaint: Dyspnea/Respdistress Present Illness HPI 67 year old female with past medical history significant for ESRD on HD on thursday, thursday and thursday presenting with progressively worsening shortness of breath and cough. Patient was hospitalized last week and treated for acute bronchitis. Since discharge she notes ongoing cough, now with markedly worsening dyspnea one exertion Denies any fevers or chills Allergies: Coded Allergies: No Known Allergies (Unverified , 09/15/17) Medication History Scheduled Amlodipine Besylate (Norvasc), 10 MG ORAL DAILY Atenolol* (Tenormin*), Unknown Dose ORAL DAILY, (Reported) Divalproex Sodium* (Depakote Er*), 500 MG ORAL QHS, (Reported) Lurasidone Hcl (Latuda), 40 MG PO QHS, (Reported) Ranitidine Hcl* (Zantac*), Unknown Dose ORAL DAILY, (Reported) Trazodone Hcl* (Desyrel*), 50 MG ORAL BEDTIME, (Reported) Miscellaneous Medications Cinacalcet Hcl (Sensipar), 90 MG PO, (Reported) Patient History Healthcare decision maker Suzanne: [phone] Resuscitation status Full Code Advanced Directive on File Review of Systems Constitutional: Denies: no symptoms, see HPI, chills, sweats, fever, malaise, weakness, other Eye: Denies: no symptoms, see HPI, eye pain, blurred vision, tearing, double vision, nose pain, nose congestion, acuity changes, discharge, other ENT: Denies: no symptoms, see HPI, ear pain, ear discharge, nose pain, nose congestion, throat pain, throat swelling, mouth pain, hearing loss, nasal discharge, other Respiratory: Reports: cough, shortness of breath, wheezing Cardiovascular: Denies: no symptoms, see HPI, chest pain, edema, palpitations, syncope, PND, other Gastrointestinal: Reports: nausea Genitourinary: Denies: no symptoms, see HPI, discharge, dysuria, frequency, hematuria, pain, retention, incontinence, urgency, vag bleed/dc, other Musculoskeletal: Denies: no symptoms, see HPI, back pain, gout, joint pain, joint swelling, muscle pain, muscle stiffness, other Skin: Denies: no symptoms, see HPI, rash, change in color, change in hair/nails , dryness, lesions, other Physical Exam General Appearance: WD/WN HEENT: normocephalic, atraumatic Neck: supple Respiratory/Chest: expiratory wheezing Cardiovascular/Chest: normal rate, regular rhythm Abdomen: normal bowel sounds, non tender, soft Extremities: normal capillary refill, no edema, no cyanosis Skin Exam: warm/dry Neurologic: oriented x 3, responsive Last 24 Hour Vital Signs Date Time Temp Pulse Resp B/P (MAP) Pulse Ox O2 Delivery O2 Flow Rate FiO2 08/09/18 12:06 Nasal Cannula 2.0 08/09/18 10:03 98.4 86 18 134/82 98 Nasal Cannula 2.0 08/09/18 08:52 92 19 158/75 94 Nasal Cannula 2.0 08/09/18 08:01 98.6 92 18 179/79 93 Room Air 08/09/18 08:01 92 18 Room Air 08/09/18 07:29 98.6 100 18 201/103 (135) 94 Room Air Laboratory Tests Test 08/09/18 07:54 08/09/18 10:00 08/09/18 13:11 White Blood Count 7.2 K/UL (4.8-10.8) Red Blood Count 3.27 M/UL (4.20-5.40) L Hemoglobin 10.4 G/DL (12.0-16.0) L Hematocrit 31.5 % (37.0-47.0) L Mean Corpuscular Volume 96 FL (80-99) Mean Corpuscular Hemoglobin 31.7 PG (27.0-31.0) H Mean Corpuscular Hemoglobin Concent 32.9 G/DL (32.0-36.0) Red Cell Distribution Width 15.4 % (11.6-14.8) H Platelet Count 230 K/UL (150-450) Mean Platelet Volume 6.8 FL (6.5-10.1) Neutrophils (%) (Auto) 68.8 % (45.0-75.0) Lymphocytes (%) (Auto) 16.9 % (20.0-45.0) L Monocytes (%) (Auto) 11.3 % (1.0-10.0) H Eosinophils (%) (Auto) 1.9 % (0.0-3.0) Basophils (%) (Auto) 1.1 % (0.0-2.0) Sodium Level 131 MMOL/L (136-145) L Potassium Level 4.1 MMOL/L (3.5-5.1) Chloride Level 93 MMOL/L (98-107) L Carbon Dioxide Level 27 MMOL/L (21-32) Anion Gap 11 mmol/L (5-15) Blood Urea Nitrogen 31 mg/dL (7-18) H Creatinine 8.7 MG/DL (0.55-1.30) H Estimat Glomerular Filtration Rate 5.6 mL/min (>60) Glucose Level 102 MG/DL (74-106) Calcium Level 10.7 MG/DL (8.5-10.1) H Total Bilirubin 0.7 MG/DL (0.2-1.0) Aspartate Amino Transf (AST/SGOT) 21 U/L (15-37) Alanine Aminotransferase (ALT/SGPT) 24 U/L (12-78) Alkaline Phosphatase 54 U/L (46-116) Total Creatine Kinase 19 U/L (26-308) L Creatine Kinase MB 1.7 NG/ML (0.0-3.6) Creatine Kinase MB Relative Index 8.9 Troponin I 0.035 ng/mL (0.000-0.056) Pro-B-Type Natriuretic Peptide 65351 pg/mL (0-125) H Total Protein 7.4 G/DL (6.4-8.2) Albumin 3.1 G/DL (3.4-5.0) L Globulin 4.3 g/dL Albumin/Globulin Ratio 0.7 (1.0-2.7) L Lipase 141 U/L (73-393) D-Dimer 1.74 mg/L FEU (0.00-0.49) H Arterial Blood pH 7.358 (7.350-7.450) Arterial Blood Partial Pressure CO2 45.1 mmHg (35.0-45.0) H Arterial Blood Partial Pressure O2 49.0 mmHg (75.0-100.0) Arterial Blood HCO3 24.8 mmol/L (22.0-26.0) Arterial Blood Oxygen Saturation 81.4 % (95-100) *L Arterial Blood Base Excess -0.8 (-2-2) Kenan Test Positive Height (Feet): 5 Height (Inches): 6.00 Weight (Pounds): 218 Medications Current Medications Medications (Trade) Dose Ordered Sig/Martha Route PRN Reason Start Time Stop Time Status Last Admin Dose Admin Acetaminophen (Tylenol) 650 mg Q4H PRN ORAL Mild Pain (Pain Scale 1-3) 08/09/18 09:45 09/08/18 09:44 Amlodipine Besylate (Norvasc) 10 mg DAILY ORAL 08/10/18 09:00 09/09/18 08:59 Atenolol (Tenormin) 25 mg DAILY ORAL 08/10/18 09:00 09/09/18 08:59 Clonidine HCl (Catapres Tab) 0.1 mg Q4H PRN ORAL For High Blood Pressure 08/09/18 17:00 09/08/18 16:59 Dextrose (Dextrose 50%) 25 ml Q30M PRN IV Hypoglycemia 08/09/18 09:45 09/08/18 09:44 Dextrose (Dextrose 50%) 50 ml Q30M PRN IV Hypoglycemia 08/09/18 09:45 09/08/18 09:44 Divalproex Sodium (Depakote ER) 500 mg QHS ORAL 08/09/18 21:00 09/08/18 20:59 Guaifenesin (Mucinex ER) 600 mg TWICE A DAY ORAL 08/09/18 18:00 09/08/18 17:59 08/09/18 17:09 Guaifenesin (Robitussin) 100 mg Q4H PRN ORAL For Cough 08/09/18 13:15 09/08/18 13:14 Heparin Sodium (Porcine) (Heparin 5000 units/ml) 5,000 units EVERY 12 HOURS SUBQ 08/09/18 21:00 09/08/18 20:59 Magnesium Hydroxide (Mom) 30 ml HSPRN PRN ORAL Constipation 08/09/18 09:45 09/08/18 09:44 Ondansetron HCl (Zofran) 4 mg Q6H PRN IVP Nausea & Vomiting 08/09/18 09:45 09/08/18 09:44 Trazodone HCl (Desyrel) 50 mg BEDTIME ORAL 08/09/18 21:00 09/08/18 20:59 Assessment/Plan Problem List: (1) Dyspnea ICD Codes: R06.00 - Dyspnea, unspecified SNOMED: 625332270 (2) Schizoaffective disorder ICD Codes: F25.9 - Schizoaffective disorder, unspecified SNOMED: 66626996 (3) HTN (hypertension) ICD Codes: I10 - Essential (primary) hypertension SNOMED: 97904043 (4) Bronchitis ICD Codes: J40 - Bronchitis, not specified as acute or chronic SNOMED: 77713192 (5) Renal failure ICD Codes: N19 - Unspecified kidney failure SNOMED: 38618743 (6) SOB (shortness of breath) ICD Codes: R06.02 - Shortness of breath SNOMED: 915902034 (7) Fluid overload ICD Codes: E87.70 - Fluid overload, unspecified SNOMED: 34787891 (8) Respiratory distress ICD Codes: R06.03 - Acute respiratory distress SNOMED: 695055340 (9) Pleural effusion ICD Codes: J90 - Pleural effusion, not elsewhere classified SNOMED: 62903897 (10) CHF (congestive heart failure) ICD Codes: I50.9 - Heart failure, unspecified SNOMED: 46416202 (11) ESRD (end stage renal disease) on dialysis ICD Codes: N18.6 - End stage renal disease; Z99.2 - Dependence on renal dialysis SNOMED: 311630565 Assessment/Plan: #ESRD on HD - will arrnage HD today - then resume m/w/f schedule - resume home meds - strict I&Os - daily weights - monitor BMP #Acute bronchitis - IV abx - duonebs - pulm consult - pulm hygeine #HTN - resume home meds - atenolol - amlodipine Radha Verdin M.D. Aug 09, 2018 18:12
--- NOTE | 2018-08-09 19:40 | NUR ---
NURSE NOTES: Received report, pt a/a/o x4 receiving dialysis, laying in bed. pt has a AV shunt on the left thigh for her HD access. pt also has a right AC gauge#20 heplock. call light within reach, bed in lowest position, side rales up x2, will continue to monitor.
--- NOTE | 2018-08-09 19:45 | History & Physical ---
History and Physical History & Physicial HISTORY AND PHYSICAL Patient: FANTA ABDULLAHI [facility] Rec #: [id number] Patient No.: [id number] Date of Service: 07/29/18 DATE OF ADMISSION: 08/09/18 CHIEF COMPLAINT: shortness of breath. HISTORY OF PRESENT ILLNESS: This is a 67-year-old female with history of hypertension, end-stage renal disease, on hemodialysis Wednesdays and Fridays, who presents to emergency room for shortness of breath since last . Last HD was on thursday. She was recently admitted on 07/29 for Bronchitis and pulmonary edema 2/2 fluid overload. She went home with [facility] with codeine which caused hallucinations. She continues to cough. Her CXR here today shows pulmonary edema. she also complains of constipation x 2 wks. Last BM ~ 2wks ago. PAST MEDICAL HISTORY: Includes hypertension and end-stage renal disease. PAST SURGICAL HISTORY: AV fistula. MEDICATIONS: Current Medications Medications (Trade) Dose Ordered Sig/Martha Route PRN Reason Start Time Stop Time Status Last Admin Dose Admin Acetaminophen (Tylenol) 650 mg Q4H PRN ORAL Mild Pain (Pain Scale 1-3) 08/09/18 09:45 09/08/18 09:44 Amlodipine Besylate (Norvasc) 10 mg DAILY ORAL 08/10/18 09:00 09/09/18 08:59 Atenolol (Tenormin) 25 mg DAILY ORAL 08/10/18 09:00 09/09/18 08:59 Clonidine HCl (Catapres Tab) 0.1 mg Q6H PRN ORAL sbp> 170 or dbp > 100 08/09/18 20:00 09/08/18 19:59 Dextrose (Dextrose 50%) 25 ml Q30M PRN IV Hypoglycemia 08/09/18 09:45 09/08/18 09:44 Dextrose (Dextrose 50%) 50 ml Q30M PRN IV Hypoglycemia 08/09/18 09:45 09/08/18 09:44 Divalproex Sodium (Depakote ER) 500 mg QHS ORAL 08/09/18 21:00 09/08/18 20:59 Guaifenesin (Mucinex ER) 600 mg TWICE A DAY ORAL 08/09/18 18:00 09/08/18 17:59 6/10/19 17:09 Guaifenesin (Robitussin) 100 mg Q4H PRN ORAL For Cough 08/09/18 13:15 09/08/18 13:14 Heparin Sodium (Porcine) (Heparin 5000 units/ml) 5,000 units EVERY 12 HOURS SUBQ 08/09/18 21:00 09/08/18 20:59 Magnesium Hydroxide (Mom) 30 ml HSPRN PRN ORAL Constipation 08/09/18 09:45 09/08/18 09:44 Ondansetron HCl (Zofran) 4 mg Q6H PRN IVP Nausea & Vomiting 08/09/18 09:45 09/08/18 09:44 Polyethylene Glycol (Miralax) 17 gm BEDTIME ORAL 08/09/18 21:00 09/08/18 20:59 UNV Sennosides (Senokot) 8.6 mg DAILY ORAL 08/09/18 20:00 09/08/18 19:59 UNV Trazodone HCl (Desyrel) 50 mg BEDTIME ORAL 08/09/18 21:00 09/08/18 20:59 ALLERGIES: No known drug allergies. SOCIAL HISTORY: The patient does not smoke, drink alcohol, or use any drugs. FAMILY HISTORY: Noncontributory. PHYSICAL EXAMINATION: Last 24 Hour Vital Signs Date Time Temp Pulse Resp B/P (MAP) Pulse Ox O2 Delivery O2 Flow Rate FiO2 08/09/18 12:06 Nasal Cannula 2.0 08/09/18 10:03 98.4 86 18 134/82 98 Nasal Cannula 2.0 08/09/18 08:52 92 19 158/75 94 Nasal Cannula 2.0 08/09/18 08:01 98.6 92 18 179/79 93 Room Air 08/09/18 08:01 92 18 Room Air 08/09/18 07:29 98.6 100 18 201/103 (135) 94 Room Air GENERAL: No acute distress. The patient is alert, awake, and oriented x3. HEENT: Normocephalic/atraumatic. NECK: Supple. No JVD. LUNGS: Clear to auscultation bilaterally. No crackles, rhonchi, or rales. Decreased breath sounds bilaterally. ABDOMEN: Soft, nontender, and nondistended. EXTREMITIES: No clubbing, cyanosis, or edema. LABORATORY DATA: CXR - pulmonary edema Laboratory Tests Test 08/09/18 07:54 08/09/18 10:00 08/09/18 13:11 White Blood Count 7.2 K/UL (4.8-10.8) Red Blood Count 3.27 M/UL (4.20-5.40) L Hemoglobin 10.4 G/DL (12.0-16.0) L Hematocrit 31.5 % (37.0-47.0) L Mean Corpuscular Volume 96 FL (80-99) Mean Corpuscular Hemoglobin 31.7 PG (27.0-31.0) H Mean Corpuscular Hemoglobin Concent 32.9 G/DL (32.0-36.0) Red Cell Distribution Width 15.4 % (11.6-14.8) H Platelet Count 230 K/UL (150-450) Mean Platelet Volume 6.8 FL (6.5-10.1) Neutrophils (%) (Auto) 68.8 % (45.0-75.0) Lymphocytes (%) (Auto) 16.9 % (20.0-45.0) L Monocytes (%) (Auto) 11.3 % (1.0-10.0) H Eosinophils (%) (Auto) 1.9 % (0.0-3.0) Basophils (%) (Auto) 1.1 % (0.0-2.0) Sodium Level 131 MMOL/L (136-145) L Potassium Level 4.1 MMOL/L (3.5-5.1) Chloride Level 93 MMOL/L (98-107) L Carbon Dioxide Level 27 MMOL/L (21-32) Anion Gap 11 mmol/L (5-15) Blood Urea Nitrogen 31 mg/dL (7-18) H Creatinine 8.7 MG/DL (0.55-1.30) H Estimat Glomerular Filtration Rate 5.6 mL/min (>60) Glucose Level 102 MG/DL (74-106) Calcium Level 10.7 MG/DL (8.5-10.1) H Total Bilirubin 0.7 MG/DL (0.2-1.0) Aspartate Amino Transf (AST/SGOT) 21 U/L (15-37) Alanine Aminotransferase (ALT/SGPT) 24 U/L (12-78) Alkaline Phosphatase 54 U/L (46-116) Total Creatine Kinase 19 U/L (26-308) L Creatine Kinase MB 1.7 NG/ML (0.0-3.6) Creatine Kinase MB Relative Index 8.9 Troponin I 0.035 ng/mL (0.000-0.056) Pro-B-Type Natriuretic Peptide 27606 pg/mL (0-125) H Total Protein 7.4 G/DL (6.4-8.2) Albumin 3.1 G/DL (3.4-5.0) L Globulin 4.3 g/dL Albumin/Globulin Ratio 0.7 (1.0-2.7) L Lipase 141 U/L (73-393) D-Dimer 1.74 mg/L FEU (0.00-0.49) H Arterial Blood pH 7.358 (7.350-7.450) Arterial Blood Partial Pressure CO2 45.1 mmHg (35.0-45.0) H Arterial Blood Partial Pressure O2 49.0 mmHg (75.0-100.0) Arterial Blood HCO3 24.8 mmol/L (22.0-26.0) Arterial Blood Oxygen Saturation 81.4 % (95-100) *L Arterial Blood Base Excess -0.8 (-2-2) Kenan Test Positive ASSESSMENT: 1. SOB 2/2 acute on chronic CHF exacerbation in setting of renal failure 2. Hypertension. 3. End-stage renal disease, on hemodialysis. 4. Schizoaffective disorder. 5. Bronchitis 6. Constipation 7. Hyponatremia 2/2 fluid overload PLAN: 1. The patient is admitted to telemetry. 2. hemodialysis today. Needs more fluid removal during dialysis 3. Pulmonary consult 4. Bowel regimen; check KUB 5. Renal consult for dialysis. 6. Nebs prn 7. DVT prophylaxis. 8. Full Code. 9. resume home meds Douglas Johnson MD Aug 09, 2018 19:45
--- NOTE | 2018-08-09 19:50 | NUR ---
HAND-OFF: Report given to Jaida BURCH, pt in stable condition.
[2018-08-09 20:00] VITALS: BP 140/70
[2018-08-09] MEDS ORDERED: Albuterol ud Inhalation HHN PRN (20:00)
--- NOTE | 2018-08-09 20:22 | NUR ---
NURSE NOTES: Clarified with Dr. Johnson re: most recent progress note, that patient is in medsurg floor instead of telemetry. Per Dr. Johnson, keep her in medsurg floor.
--- NOTE | 2018-08-09 20:45 | Consultation ---
DATE OF CONSULTATION: 08/09/2018 PULMONARY CONSULTATION CONSULTING PHYSICIAN: Donato Her M.D. REFERRING PHYSICIANS: 1. . 2. Douglas Johnson M.D. REASON FOR CONSULTATION: Respiratory distress. HISTORY OF PRESENT ILLNESS: The patient is a 67-year-old female with history of obesity, end-stage renal disease, on hemodialysis 3 times a week, hypertension, diabetes, and CAD who presents with shortness of breath. She was discharged from the hospital on 08/03/2018. She was admitted with URI/bronchitis. Since then, she has had persistent cough and shortness of breath, also worsening orthopnea and PND, but no increased lower extremity edema. She has had some nausea and constipation. No fevers or chills. She has been using the Robitussin with codeine cough syrup. No other inhalers. No antecedent history of lung disease. She denies tobacco, alcohol, or drug use. She denies any recent ill contacts. With respect to her exercise tolerance, she states she has marked dyspnea walking 5 to 10 feet. At the time of my evaluation, she is in no distress. PAST MEDICAL HISTORY: 1. End-stage renal disease, on dialysis. 2. Morbid obesity. 3. Diabetes. 4. Hypertension. 5. CAD. PAST SURGICAL HISTORY: AV fistula. MEDICATIONS: Prior to admission medications reviewed. Current medications reviewed. ALLERGIES: No known drug allergies. SOCIAL HISTORY: No tobacco, alcohol, or drug use. FAMILY HISTORY: Noncontributory. REVIEW OF SYSTEMS: Negative other than history of present illness. PHYSICAL EXAMINATION: VITAL SIGNS: Temperature 98.4, pulse 86, blood pressure 134/82, respiratory rate 18, and saturating 98% on room air. GENERAL: She is an obese female, in no acute distress. Awake, alert, and oriented x3. HEENT: Normocephalic and atraumatic. Oropharynx is clear with moist mucous membranes. NECK: Supple without lymphadenopathy or jugular venous distention. CHEST: Scattered breath sounds. HEART: Regular rate and rhythm. ABDOMEN: Soft, nontender, and nondistended. EXTREMITIES: No cyanosis, clubbing, or edema. ANCILLARY DATA: Chest x-ray, pulmonary vascular congestion and right-sided pleural effusion. White count 7.2, hemoglobin 10.4, and platelet count 230,000. Sodium 131, potassium 4.1, chloride 93, bicarb 27, BUN 31, creatinine 8.7, glucose 102, calcium 10.7. Total bilirubin 0.7. AST 21, ALT 24, and alkaline phosphatase 54. Troponin 0.035. BNP 25,000. Albumin 3.1. ASSESSMENT: The patient is a 67-year-old female with a history of obesity, end-stage renal disease, on dialysis, CAD, hypertension, diabetes, presenting with shortness of breath likely secondary to decompensated heart failure plus resolving URI, bronchitis. PROBLEM LIST: 1. Shortness of breath. 2. Resolving URI, bronchitis. 3. Congestive heart failure with acute exacerbation. 4. End-stage renal disease, on dialysis. 5. Hypertension. 6. Diabetes. TREATMENT PLAN: 1. Optimize pulmonary hygiene/mobilize as tolerated. 2. P.r.n. O2 to keep saturations greater than 90%. 3. Check ABG. 4. Check echo. 5. Check duplex. 6. Check D-dimer. 7. Mucinex and p.r.n. Robitussin. 8. Monitor volumes and renal function, dialysis per Renal with UF as tolerated. 9. DVT prophylaxis with heparin subcutaneous. 10. Weight loss, diet, and exercise. and Dr. Johnson, thank you for allowing me to assist in the care of your patient. If I may be of any assistance in the future, please do not hesitate to ask. Donato Her M.D. DR: LILIAN JOB#: [id number] CC:
[2018-08-09] MEDS: Heparin 5000 units/ml inj SUBQ SCH (21:00)
--- NOTE | 2018-08-09 21:00 | NUR ---
NURSE NOTES: Patient asked regarding her Latuda and Synthroid. Patient could not remember the exact dose. Instructed to ask someone to bring medication and clarify since latuda is not available here too. Patient will ask caregiver in the morning.
[2018-08-09] MEDS: TraZODone 50mg tab ORAL SCH (21:04)
[2018-08-09] MEDS: Sennosides 8.6mg tab ORAL SCH (21:04)
[2018-08-09] MEDS: Depakote ER 500mg tab ORAL SCH (21:04)
[2018-08-09] MEDS: Miralax 17gm pkt ORAL SCH (21:09)
[2018-08-09] MEDS ORDERED: RENVELA0.8 GM ORAL (21:21)
[2018-08-09] MEDS ORDERED: SYNTHROID50 MCG ORAL (21:21)
[2018-08-10] VITALS: BP 137/68
--- NOTE | 2018-08-10 00:12 | NUR ---
NURSE NOTES: Patient complains pain 7 out of 10 on R upper jaw due to denture. Tylenol 2tablets given @9431 but not working. Called Dr. Johnson @0006, received telephone order tramadol 50mg q6hr prn for sever pain.
[2018-08-10] MEDS: traMADol 50mg tab ORAL PRN ×2 (00:56→13:56)
[2018-08-10 04:00] VITALS: BP 138/77
[2018-08-10] MEDS ORDERED: Renvela 800mg Pkt ORAL SCH (06:30)
--- NOTE | 2018-08-10 07:28 | NUR ---
HAND-OFF: Report given to MARCIN Bateman.
--- NOTE | 2018-08-10 07:37 | NUR ---
NURSE NOTES: Patient received resting in bed. Alert and oriented, responds appropriately. Nasal cannula on at 3L/min. Denies SOB or pain at this time. IV site observed on right arm. Bed locked in lowest position, call light placed within reach. Will continue to monitor.
[2018-08-10] MEDS: Atenolol 25mg tab ORAL SCH (08:49)
[2018-08-10] MEDS: Sennosides 8.6mg tab ORAL SCH (08:49)
[2018-08-10] MEDS: guaiFENesin ER 600mg tab ORAL SCH ×2 (08:50→17:32)
[2018-08-10] MEDS: Heparin 5000 units/ml inj SUBQ SCH ×2 (09:05→20:48)
--- NOTE | 2018-08-10 09:51 | Diagnostic Imaging Report ---
Indication: Dyspnea Technique: Continuous helical transaxial imaging of the chest was obtained from the thoracic inlet to the upper abdomen. No intravenous contrast was administered. Coronal 2-D reformats were also obtained. Total Dose length Product (DLP): 891.[address] Dose Index Volume (CTDIvol): 24.46 mGy Comparison: none Findings: There is a moderate to large right pleural effusion. Dense consolidation and atelectasis of the right lower lobe demonstrated. The pleural effusion may be complex given some thickening of the posterior pleura. There is also some calcification of the pleura along the visceral surface versus a small calcific focus within the lung. The study was done without intravenous contrast. Evaluation is thereby limited especially for causes of malignant effusion are inflammatory causes. There are signs of previous breast carcinoma with axillary clips in the left axilla and distortion and mastectomy changes in the left breast. There are no nodules within the lungs identified. Mild paraseptal bleb formation noted within both lungs at the apices. There is gaseous calcification of the mitral valve. The heart is enlarged. The aorta is mildly calcified. The visualized part of the upper abdomen shows a low density right adrenal mass nonspecific measuring approximately 2.3 x 1.7 cm. Cholecystectomy clips noted. The kidneys are only partially seen but appear atrophic with suggestion of innumerable cysts. Accessory splenic nodule noted. Bones are osteopenic. IMPRESSION: Moderate to large right pleural effusion. Effusion may be complex and is likely nonhemodynamic. Slight thickening of the posterior pleura noted. Evaluation for tumor or inflammatory causes is limited on this examination done w/o IV contrast. Stigmata of the previous breast carcinoma with left partial mastectomy and axillary node dissection. Mild chronic lung disease as described above. 2.3 x 1.7 cm right adrenal nodule, nonspecific although probably an adenoma. Consider MRI evaluation. Status post cholecystectomy H of the kidneys with innumerable cysts. Accessory spleen Osteopenia Atherosclerotic vascular disease. The CT scanner at [facility] is accredited by the [employer] and the scans are performed using dose optimization techniques as appropriate to a performed exam including Automatic Exposure control.
--- NOTE | 2018-08-10 10:15 | NUR ---
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 CHF . PLEURAL EFFUSION VS: BP 201/103, P 100, T 98.6, RR 18, SpO2 94 on 2.0L O2 NC RBC 3.27, H&H 10.4/31.5, Na 131, BUN 31, CR 8.7 CXR: Pulmonary edema. Right pleural effusion. IS:ZOFRAN 4mg IVP DESYREL 50mg DEPAKOTE 50mg ADMITTED TO MED/SURG DCP: RETURN HOME
[2018-08-10 11:15] LABS: ANION GAP 6 mmol/L (5-15); BLOOD UREA NITROGEN 25 mg/dL (7-18); CALCIUM 9.7 MG/DL (8.5-10.1); CARBON DIOXIDE 32 MMOL/L (21-32); CHLORIDE 93 MMOL/L (98-107); CREATININE 7.3 MG/DL (0.55-1.30); POTASSIUM 4.7 MMOL/L (3.5-5.1); SODIUM 130 MMOL/L (136-145)
--- NOTE | 2018-08-10 12:11 | Diagnostic Imaging Report ---
Indication: Abdominal pain Comparison: None Single view of the abdomen obtained Findings: Bowel gas pattern is nonspecific. No mass, ectopic calcifications, or abnormal gas collections are identified. The bones are abnormal with diffuse demineralization. Surgical clip noted in the right upper quadrant abdomen consistent with previous cholecystectomy. Impression: No acute findings
[2018-08-10 12:15] VITALS: BP 138/80
--- NOTE | 2018-08-10 12:18 | NUR ---
RADIOLOGY DEPT., ABDOMEN X-RAY COMPLETED.-P.DYE
--- NOTE | 2018-08-10 12:48 | Pulmonology Progress Note ---
Assessment/Plan Assessment/Plan Pulmonary Progress Notr: HPI: The patient is a 67-year-old female with history of obesity, end-stage renal disease, on hemodialysis 3 times a week, hypertension, diabetes, and CAD who presents with shortness of breath. She was discharged from the hospital on 08/03/2018. She was admitted with URI/bronchitis. Since then, she has had persistent cough and shortness of breath, also worsening orthopnea and PND, but no increased lower extremity edema. She has had some nausea and constipation. No fevers or chills. She has been using the Robitussin with codeine cough syrup. No other inhalers. No antecedent history of lung disease. She denies tobacco, alcohol, or drug use. She denies any recent ill contacts. With respect to her exercise tolerance, she states she has marked dyspnea walking 5 to 10 feet. At the time of my evaluation, she is in no distress. Moderate right pleural effusion on CT Chest PAST MEDICAL HISTORY: 1. End-stage renal disease, on dialysis. 2. Morbid obesity. 3. Diabetes. 4. Hypertension. 5. CAD. PAST SURGICAL HISTORY: AV fistula. MEDICATIONS: Prior to admission medications reviewed. Current medications reviewed. ALLERGIES: No known drug allergies. SOCIAL HISTORY: No tobacco, alcohol, or drug use. FAMILY HISTORY: Noncontributory. REVIEW OF SYSTEMS: Negative other than history of present illness. PHYSICAL EXAMINATION: VITAL SIGNS: Temperature 98.4, pulse 86, blood pressure 134/82, respiratory rate 18, and saturating 98% on room air. GENERAL: She is an obese female, in no acute distress. Awake, alert, and oriented x3. HEENT: Normocephalic and atraumatic. Oropharynx is clear with moist mucous membranes. NECK: Supple without lymphadenopathy or jugular venous distention. CHEST: Scattered breath sounds. HEART: Regular rate and rhythm. ABDOMEN: Soft, nontender, and nondistended. EXTREMITIES: No cyanosis, clubbing, or edema. ANCILLARY DATA: Chest x-ray, pulmonary vascular congestion and right-sided pleural effusion. White count 7.2, hemoglobin 10.4, and platelet count 230,000. Sodium 131, potassium 4.1, chloride 93, bicarb 27, BUN 31, creatinine 8.7, glucose 102, calcium 10.7. Total bilirubin 0.7. AST 21, ALT 24, and alkaline phosphatase 54. Troponin 0.035. BNP 25,000. Albumin 3.1 ASSESSMENT 1. Shortness of breath associated with volume overload, moderate right sided pleural effusion on CT chest 2. Resolving URI, bronchitis. 3. Congestive heart failure with acute exacerbation. 4. End-stage renal disease, on dialysis. 5. Hypertension. 6. Diabetes. PLAN: 1. Optimize pulmonary hygiene/mobilize as tolerated. 2. P.r.n. O2 to keep saturations greater than 90%. 3. Check ABG. 4. Check echo. 5. Check duplex. 6. Check D-dimer. 7. Mucinex and p.r.n. Robitussin. 8. Monitor volumes and renal function, dialysis per Renal with UF as tolerated. 9. DVT prophylaxis with heparin subcutaneous. 10. Weight loss, diet, and exercise. 11. R Thoracentesis Subjective ROS Limited/Unobtainable: No Allergies: Coded Allergies: No Known Allergies (Unverified , 09/15/17) Objective Last 24 Hour Vital Signs Date Time Temp Pulse Resp B/P (MAP) Pulse Ox O2 Delivery O2 Flow Rate FiO2 08/10/18 12:15 98.6 80 19 138/80 (99) 98 08/10/18 09:00 Nasal Cannula 3.0 08/10/18 08:49 87 138/77 08/10/18 08:49 87 138/77 08/10/18 07:30 75 18 99 Nasal Cannula 3.0 32 08/10/18 04:00 97.8 87 19 138/77 (97) 96 08/10/18 00:00 98.3 77 19 137/68 (91) 98 08/09/18 21:40 Nasal Cannula 3.0 08/09/18 20:00 97.8 81 18 140/70 (93) 98 Intake and Output 08/09/18 08/10/18 18:59 06:59 Intake Total 780 ml Balance 780 ml Intake Oral 780 ml # Voids 1 Laboratory Tests 08/09/18 13:11: Arterial Blood pH 7.358, Arterial Blood Partial Pressure CO2 45.1H, Arterial Blood Partial Pressure O2 49.0*L, Arterial Blood HCO3 24.8, Arterial Blood Oxygen Saturation 81.4*L, Arterial Blood Base Excess -0.8, Kenan Test Positive 08/10/18 10:34: Sodium Level 130L, Potassium Level 4.7, Chloride Level 93L, Carbon Dioxide Level 32, Anion Gap 6, Blood Urea Nitrogen 25H, Creatinine 7.3H, Estimat Glomerular Filtration Rate 6.8, Glucose Level 140H, Calcium Level 9.7 Current Medications Medications (Trade) Dose Ordered Sig/Martha Route PRN Reason Start Time Stop Time Status Last Admin Dose Admin Acetaminophen (Tylenol) 650 mg Q4H PRN ORAL Mild Pain (Pain Scale 1-3) 08/09/18 09:45 09/08/18 09:44 08/09/18 22:41 Albuterol Sulfate (Proventil) 2.5 mg TIDRT PRN HHN sob 08/09/18 20:00 08/14/18 19:59 Amlodipine Besylate (Norvasc) 10 mg DAILY ORAL 08/10/18 09:00 09/09/18 08:59 08/10/18 08:49 Atenolol (Tenormin) 25 mg DAILY ORAL 08/10/18 09:00 09/09/18 08:59 08/10/18 08:49 Clonidine HCl (Catapres Tab) 0.1 mg Q6H PRN ORAL sbp> 170 or dbp > 100 08/09/18 20:00 09/08/18 19:59 Dextrose (Dextrose 50%) 25 ml Q30M PRN IV Hypoglycemia 08/09/18 09:45 09/08/18 09:44 Dextrose (Dextrose 50%) 50 ml Q30M PRN IV Hypoglycemia 08/09/18 09:45 09/08/18 09:44 Divalproex Sodium (Depakote ER) 500 mg QHS ORAL 08/09/18 21:00 09/08/18 20:59 08/09/18 21:04 Guaifenesin (Mucinex ER) 600 mg TWICE A DAY ORAL 08/09/18 18:00 09/08/18 17:59 08/10/18 08:50 Guaifenesin (Robitussin) 100 mg Q4H PRN ORAL For Cough 08/09/18 13:15 09/08/18 13:14 Heparin Sodium (Porcine) (Heparin 5000 units/ml) 5,000 units EVERY 12 HOURS SUBQ 08/09/18 21:00 09/08/18 20:59 08/10/18 09:05 Magnesium Hydroxide (Mom) 30 ml HSPRN PRN ORAL Constipation 08/09/18 09:45 09/08/18 09:44 Ondansetron HCl (Zofran) 4 mg Q6H PRN IVP Nausea & Vomiting 08/09/18 09:45 09/08/18 09:44 Polyethylene Glycol (Miralax) 17 gm BEDTIME ORAL 08/09/18 21:00 09/08/18 20:59 08/09/18 21:09 Sennosides (Senokot) 8.6 mg DAILY ORAL 08/09/18 20:00 09/08/18 19:59 08/10/18 08:49 Sevelamer Carbonate (Renvela) 1,600 mg BEFORE MEALS ORAL 08/10/18 11:30 09/09/18 11:29 08/10/18 11:59 Tramadol HCl (Ultram) 50 mg Q6H PRN ORAL Severe Pain (Pain Scale 7-10) 08/10/18 00:15 08/17/18 00:14 08/10/18 00:56 Trazodone HCl (Desyrel) 50 mg BEDTIME ORAL 08/09/18 21:00 09/08/18 20:59 08/09/18 21:04 Douglas Kee MD Aug 10, 2018 12:48
--- NOTE | 2018-08-10 16:10 | Nephrology Progress Note ---
Assessment/Plan Problem List: (1) Dyspnea (2) Schizoaffective disorder (3) HTN (hypertension) (4) Bronchitis (5) Renal failure (6) SOB (shortness of breath) (7) Fluid overload (8) Respiratory distress (9) Pleural effusion (10) CHF (congestive heart failure) (11) ESRD (end stage renal disease) on dialysis Plan #ESRD on HD - continue resume m/w/f schedule -> HD tomorrow - resume home meds - strict I&Os - daily weights - monitor BMP #Acute bronchitis - IV abx - duonebs - pulm consult - pulm hygeine #HTN - resume home meds - atenolol - amlodipine Subjective Interval Events/Complaints s/p HD breathing slightly better cough is better no nausea or emesis Objective Objective Last 24 Hour Vital Signs Date Time Temp Pulse Resp B/P (MAP) Pulse Ox O2 Delivery O2 Flow Rate FiO2 08/10/18 12:15 98.6 80 19 138/80 (99) 98 08/10/18 09:00 Nasal Cannula 3.0 08/10/18 08:49 87 138/77 08/10/18 08:49 87 138/77 08/10/18 07:30 75 18 99 Nasal Cannula 3.0 32 08/10/18 04:00 97.8 87 19 138/77 (97) 96 08/10/18 00:00 98.3 77 19 137/68 (91) 98 08/09/18 21:40 Nasal Cannula 3.0 08/09/18 20:00 97.8 81 18 140/70 (93) 98 Intake and Output 08/09/18 08/10/18 18:59 06:59 Intake Total 780 ml Balance 780 ml Intake Oral 780 ml # Voids 1 Laboratory Tests 08/10/18 10:34: Sodium Level 130L, Potassium Level 4.7, Chloride Level 93L, Carbon Dioxide Level 32, Anion Gap 6, Blood Urea Nitrogen 25H, Creatinine 7.3H, Estimat Glomerular Filtration Rate 6.8, Glucose Level 140H, Calcium Level 9.7 Height (Feet): 5 Height (Inches): 6.00 Weight (Pounds): 218 General Appearance: WD/WN, no apparent distress EENT: PERRL/EOMI Neck: non-tender Cardiovascular: normal rate, regular rhythm Respiratory/Chest: chest wall non-tender, expiratory wheezing Abdomen: non tender, soft, no mass Extremities: non-tender, no calf tenderness Neurologic: alert, oriented x 3, responsive Radha Verdin M.D. Aug 10, 2018 16:10
[2018-08-10 16:15] VITALS: BP 126/77
--- NOTE | 2018-08-10 16:23 | NUR ---
NURSE NOTES: RN spoke to Issac from [facility] to request inpatient HD tomorrow 08/11.
--- NOTE | 2018-08-10 17:55 | Internal Med Progress Note ---
Subjective Physician Name Douglas Johnson Attending Physician Douglas Johnson MD Current Medications Medications (Trade) Dose Ordered Sig/Martha Route PRN Reason Start Time Stop Time Status Last Admin Dose Admin Acetaminophen (Tylenol) 650 mg Q4H PRN ORAL Mild Pain (Pain Scale 1-3) 08/09/18 09:45 09/08/18 09:44 08/09/18 22:41 Albuterol Sulfate (Proventil) 2.5 mg TIDRT PRN HHN sob 08/09/18 20:00 08/14/18 19:59 Amlodipine Besylate (Norvasc) 10 mg DAILY ORAL 08/10/18 09:00 09/09/18 08:59 08/10/18 08:49 Atenolol (Tenormin) 25 mg DAILY ORAL 08/10/18 09:00 09/09/18 08:59 08/10/18 08:49 Bisacodyl (Dulcolax) 10 mg ONCE RECTAL 08/10/18 18:00 08/10/18 19:00 08/10/18 17:32 Clonidine HCl (Catapres Tab) 0.1 mg Q6H PRN ORAL sbp> 170 or dbp > 100 08/09/18 20:00 09/08/18 19:59 Dextrose (Dextrose 50%) 25 ml Q30M PRN IV Hypoglycemia 08/09/18 09:45 09/08/18 09:44 Dextrose (Dextrose 50%) 50 ml Q30M PRN IV Hypoglycemia 08/09/18 09:45 09/08/18 09:44 Divalproex Sodium (Depakote ER) 500 mg QHS ORAL 08/09/18 21:00 09/08/18 20:59 08/09/18 21:04 Guaifenesin (Mucinex ER) 600 mg TWICE A DAY ORAL 08/09/18 18:00 09/08/18 17:59 08/10/18 17:32 Guaifenesin (Robitussin) 100 mg Q4H PRN ORAL For Cough 08/09/18 13:15 09/08/18 13:14 Heparin Sodium (Porcine) (Heparin 5000 units/ml) 5,000 units EVERY 12 HOURS SUBQ 08/09/18 21:00 09/08/18 20:59 08/10/18 09:05 Magnesium Hydroxide (Mom) 30 ml HSPRN PRN ORAL Constipation 08/09/18 09:45 09/08/18 09:44 08/10/18 13:59 Ondansetron HCl (Zofran) 4 mg Q6H PRN IVP Nausea & Vomiting 08/09/18 09:45 09/08/18 09:44 Polyethylene Glycol (Miralax) 17 gm BEDTIME ORAL 08/09/18 21:00 09/08/18 20:59 08/09/18 21:09 Sennosides (Senokot) 8.6 mg DAILY ORAL 08/09/18 20:00 09/08/18 19:59 08/10/18 08:49 Sevelamer Carbonate (Renvela) 1,600 mg BEFORE MEALS ORAL 08/10/18 11:30 09/09/18 11:29 08/10/18 17:33 Tramadol HCl (Ultram) 50 mg Q6H PRN ORAL Severe Pain (Pain Scale 7-10) 08/10/18 00:15 08/17/18 00:14 08/10/18 13:56 Trazodone HCl (Desyrel) 50 mg BEDTIME ORAL 08/09/18 21:00 09/08/18 20:59 08/09/18 21:04 Allergies: Coded Allergies: No Known Allergies (Unverified , 09/15/17) All Systems: reviewed and negative except above Subjective less SOB states has to go to the bathroom now no CP Objective Last Vital Signs Date Time Temp Pulse Resp B/P (MAP) Pulse Ox O2 Delivery O2 Flow Rate FiO2 08/10/18 16:15 97.9 81 18 126/77 (93) 97 08/10/18 09:00 Nasal Cannula 3.0 08/10/18 07:30 32 Laboratory Tests Test 08/10/18 10:34 Sodium Level 130 MMOL/L (136-145) L Potassium Level 4.7 MMOL/L (3.5-5.1) Chloride Level 93 MMOL/L (98-107) L Carbon Dioxide Level 32 MMOL/L (21-32) Anion Gap 6 mmol/L (5-15) Blood Urea Nitrogen 25 mg/dL (7-18) H Creatinine 7.3 MG/DL (0.55-1.30) H Estimat Glomerular Filtration Rate 6.8 mL/min (>60) Glucose Level 140 MG/DL (74-106) H Calcium Level 9.7 MG/DL (8.5-10.1) Intake and Output 08/09/18 08/10/18 19:00 07:00 Intake Total 780 ml Balance 780 ml Intake Oral 780 ml # Voids 1 Objective gen - NAD. awake HEENT - NC/AT Neck - no JVD. supple CHEST - CTA b/l ABD - NT/ND EXT - No c/c/e Assessment/Plan Assessment/Plan ASSESSMENT: 1. SOB 2/2 acute on chronic CHF exacerbation in setting of renal failure 2. Hypertension. 3. End-stage renal disease, on hemodialysis. 4. Schizoaffective disorder. 5. Bronchitis 6. Constipation 7. Hyponatremia 2/2 fluid overload 8. Moderate to large right pleural effusion 9. 2.3 x 1.7 cm right adrenal nodule, nonspecific although probably an adenoma PLAN: 1. medsurg 2. hemodialysis tomrrow . Needs more fluid removal during dialysis 3. Pulmonary consult ; Thoracenthesis ordered 4. Bowel regimen 5. Renal consult for dialysis. 6. Nebs prn 7. DVT prophylaxis. 8. Full Code. 9. resume home meds IMPRESSION: Moderate to large right pleural effusion. Effusion may be complex and is likely nonhemodynamic. Slight thickening of the posterior pleura noted. Evaluation for tumor or inflammatory causes is limited on this examination done w/o IV contrast. Stigmata of the previous breast carcinoma with left partial mastectomy and axillary node dissection. Mild chronic lung disease as described above. 2.3 x 1.7 cm right adrenal nodule, nonspecific although probably an adenoma. Consider MRI evaluation. Status post cholecystectomy H of the kidneys with innumerable cysts. Accessory spleen Osteopenia Atherosclerotic vascular disease. Douglas Johnson MD Aug 10, 2018 17:55
--- NOTE | 2018-08-10 19:32 | NUR ---
HAND-OFF: Report given to Aga RN.
--- NOTE | 2018-08-10 19:35 | NUR ---
NURSE NOTES: RECEIVED PT FROM MARCIN ROMAN. PT IS AWAKE, AAO X4. PT IS ON NC 3L, NO ACUTE DISTRESS NOTED. PT DENIES PAIN AT THE MOMENT. IV ON RIGHT AC 20G IS INTACT AND PATENT. BED IS LOCKED AT THE LOWEST POSITION, BED ALARMS ACTIVE, SIDE RAILS UP X2, AND CALL LIGHT IS WITHIN REACH. WILL CONTINUE TO MONITOR
[2018-08-10 20:00] VITALS: BP 159/73
[2018-08-10] MEDS: Miralax 17gm pkt ORAL SCH (20:44)
[2018-08-10] MEDS: TraZODone 50mg tab ORAL SCH (20:44)
[2018-08-10] MEDS: Depakote ER 500mg tab ORAL SCH (20:44)
--- NOTE | 2018-08-11 07:30 | NUR ---
HAND-OFF: Report given to MARCIN SALVADOR.
[2018-08-11 07:50] LABS: ALANINE AMINOTRANSFERASE 19 U/L (12-78); ALBUMIN 3.2 G/DL (3.4-5.0); ALKALINE PHOSPHATASE 51 U/L (46-116); ANION GAP 7 mmol/L (5-15); ASPARTATE AMINO TRANSFERASE 12 U/L (15-37); BILIRUBIN,TOTAL 0.6 MG/DL (0.2-1.0); BLOOD UREA NITROGEN 32 mg/dL (7-18); CARBON DIOXIDE 31 MMOL/L (21-32); CHLORIDE 93 MMOL/L (98-107); CREATININE 8.8 MG/DL (0.55-1.30); LACTATE DEHYDROGENASE 166 U/L (81-234); POTASSIUM 5.2 MMOL/L (3.5-5.1); SODIUM 131 MMOL/L (136-145)
--- NOTE | 2018-08-11 07:50 | NUR ---
NURSE NOTES: Received patient on bed, awake. IV site intact and patent. Bed in low and locked position, call light in reach. No signs of respiratory distress or pain. No shortness of breath but non producing cough present. Room board updated, will continue to monitor.
[2018-08-11] MEDS: Sennosides 8.6mg tab ORAL SCH (09:28)
[2018-08-11] MEDS: Atenolol 25mg tab ORAL SCH (09:29)
[2018-08-11] MEDS: guaiFENesin ER 600mg tab ORAL SCH ×2 (09:29→17:04)
[2018-08-11] MEDS: Heparin 5000 units/ml inj SUBQ SCH ×2 (09:41→20:50)
[2018-08-11 12:00] VITALS: BP 113/62
[2018-08-11] MEDS: guaiFENesin 100mg/5ml Liq ud ORAL PRN (12:36)
--- NOTE | 2018-08-11 12:47 | NUR ---
RADIOLOGY DEPT., CHEST X-RAY DONE.-P.DYE
--- NOTE | 2018-08-11 12:50 | Pre-Procedure Note/Attestation ---
Pre-Procedure Note/Attestation Complete Prior to Procedure Planned Procedure: right Procedure Narrative: Thoracentesis Indications for Procedure Pre-Operative Diagnosis: Pleural effusion Attestation I attest that I discussed the nature of the procedure; its benefits; risks and complications; and alternatives (and the risks and benefits of such alternatives ), prior to the procedure, with the patient (or the patient's legal inside sales account representative). I attest that, if there was a reasonable possibility of needing a blood transfusion, the patient (or the patient's legal inside sales account representative) was given the [facility] standardized written summary, pursuant to the [place] Blood Safety Act ([place] Health and Safety Code # 1645, as amended). I attest that I re-evaluated the patient just prior to the surgery and that there has been no change in the patient's H&P, except as documented below: Vincent Oswald MD Aug 11, 2018 12:50
--- NOTE | 2018-08-11 12:51 | Brief Operative Note ---
Immediate Post Operative Note Operative Note Pre-op Diagnosis: Pleural effusion Procedure: R thoracentesis Post-op Diagnosis: same as pre-op Findings: consistent w/pre-op dx studies Surgeon: Marco A Stanton Anesthesia: local Specimen: yes - 20 ml fluid sent to lab Complications: none Condition: stable Fluids: none Implant(s) used?: No Vincent Stanton MD Aug 11, 2018 12:51
--- NOTE | 2018-08-11 13:07 | Diagnostic Imaging Report ---
Indications: Pleural effusion Technique: Ultrasound used to localize optimal puncture site. Sterile prepping and draping right chest. Local anesthesia with 1% lidocaine. Under real-time ultrasound guidance, puncture pleural space using thoracentesis needle. Stylet removed. Catheter placed to vacuum bottle suction. Total 800 milliliters of fluid aspirated. Patient tolerated procedure well, without immediate complication. Findings: Followup sonography demonstrates resolution of most of pleural fluid. Some residual pleural fluid was left, but patient unable to tolerate further drainage due to excessive coughing Impression: Successful ultrasound-guided thoracentesis, yielding 800 milliliters of fluid
--- NOTE | 2018-08-11 13:08 | Diagnostic Imaging Report ---
Indication: Post thoracentesis Technique: One view of the chest Comparison: 08/09/2018 Findings: Interim marked improvement of previously demonstrated right pleural effusion. There is residual opacity at the right lower lung. . Mild generalized interstitial congestion persists. The heart size is normal. There are left axillary surgical clips again demonstrated. No pneumothorax Impression: Improved right pleural effusion, post thoracentesis. No radiographic evident, location Residual right basilar opacity. Probably reflects residual pleural fluid as some residual was present on sonography after thoracentesis Persistent mild interstitial congestion
--- NOTE | 2018-08-11 19:21 | Internal Med Progress Note ---
Subjective Physician Name Douglas Johnson Attending Physician Douglas Johnson MD Current Medications Medications (Trade) Dose Ordered Sig/Martha Route PRN Reason Start Time Stop Time Status Last Admin Dose Admin Acetaminophen (Tylenol) 650 mg Q4H PRN ORAL Mild Pain (Pain Scale 1-3) 08/09/18 09:45 09/08/18 09:44 08/09/18 22:41 Albuterol Sulfate (Proventil) 2.5 mg TIDRT PRN HHN sob 08/09/18 20:00 08/14/18 19:59 Amlodipine Besylate (Norvasc) 10 mg DAILY ORAL 08/10/18 09:00 09/09/18 08:59 08/11/18 09:29 Atenolol (Tenormin) 25 mg DAILY ORAL 08/10/18 09:00 09/09/18 08:59 08/11/18 09:29 Clonidine HCl (Catapres Tab) 0.1 mg Q6H PRN ORAL sbp> 170 or dbp > 100 08/09/18 20:00 09/08/18 19:59 Dextrose (Dextrose 50%) 25 ml Q30M PRN IV Hypoglycemia 08/09/18 09:45 09/08/18 09:44 Dextrose (Dextrose 50%) 50 ml Q30M PRN IV Hypoglycemia 08/09/18 09:45 09/08/18 09:44 Diphenhydramine HCl (Benadryl) 25 mg Q6H PRN ORAL Itching 08/11/18 12:06 09/10/18 12:05 08/11/18 12:36 Divalproex Sodium (Depakote ER) 500 mg QHS ORAL 08/09/18 21:00 09/08/18 20:59 08/10/18 20:44 Guaifenesin (Mucinex ER) 600 mg TWICE A DAY ORAL 08/09/18 18:00 09/08/18 17:59 08/11/18 17:04 Guaifenesin (Robitussin) 100 mg Q4H PRN ORAL For Cough 08/09/18 13:15 09/08/18 13:14 08/11/18 12:36 Heparin Sodium (Porcine) (Heparin 5000 units/ml) 5,000 units EVERY 12 HOURS SUBQ 08/09/18 21:00 09/08/18 20:59 08/11/18 09:41 Magnesium Hydroxide (Mom) 30 ml HSPRN PRN ORAL Constipation 08/09/18 09:45 09/08/18 09:44 08/10/18 13:59 Ondansetron HCl (Zofran) 4 mg Q6H PRN IVP Nausea & Vomiting 08/09/18 09:45 09/08/18 09:44 08/11/18 18:08 Polyethylene Glycol (Miralax) 17 gm BEDTIME ORAL 08/09/18 21:00 09/08/18 20:59 08/10/18 20:44 Sennosides (Senokot) 8.6 mg DAILY ORAL 08/09/18 20:00 09/08/18 19:59 08/11/18 09:28 Sevelamer Carbonate (Renvela) 1,600 mg BEFORE MEALS ORAL 08/10/18 11:30 09/09/18 11:29 08/11/18 17:04 Tramadol HCl (Ultram) 50 mg Q6H PRN ORAL Severe Pain (Pain Scale 7-10) 08/10/18 00:15 08/17/18 00:14 08/10/18 13:56 Trazodone HCl (Desyrel) 50 mg BEDTIME ORAL 08/09/18 21:00 09/08/18 20:59 08/10/18 20:44 Allergies: Coded Allergies: No Known Allergies (Unverified , 09/15/17) Subjective s/p thoracenthesis 800ml R lung no CP no SOB 12 pt ros neg except above Objective Last Vital Signs Date Time Temp Pulse Resp B/P (MAP) Pulse Ox O2 Delivery O2 Flow Rate FiO2 08/11/18 12:00 98.0 70 20 113/62 (79) 100 08/11/18 09:00 Nasal Cannula 3.0 08/11/18 08:15 28 Respiratory/Chest: chest wall non-tender Laboratory Tests Test 08/11/18 05:45 08/11/18 12:14 08/11/18 12:40 Prothrombin Time 10.2 SEC (9.30-11.50) Prothromb Time International Ratio 1.0 (0.9-1.1) Activated Partial Thromboplast Time 31 SEC (23-33) Sodium Level 131 MMOL/L (136-145) L Potassium Level 5.2 MMOL/L (3.5-5.1) H Chloride Level 93 MMOL/L (98-107) L Carbon Dioxide Level 31 MMOL/L (21-32) Anion Gap 7 mmol/L (5-15) Blood Urea Nitrogen 32 mg/dL (7-18) H Creatinine 8.8 MG/DL (0.55-1.30) H Estimat Glomerular Filtration Rate 5.5 mL/min (>60) Glucose Level 87 MG/DL (74-106) Calcium Level 10.0 MG/DL (8.5-10.1) Total Bilirubin 0.6 MG/DL (0.2-1.0) Aspartate Amino Transf (AST/SGOT) 12 U/L (15-37) L Alanine Aminotransferase (ALT/SGPT) 19 U/L (12-78) Alkaline Phosphatase 51 U/L (46-116) Lactate Dehydrogenase 166 U/L (81-234) Total Protein 6.4 G/DL (6.4-8.2) Albumin 3.2 G/DL (3.4-5.0) L Globulin 3.2 g/dL Albumin/Globulin Ratio 1.0 (1.0-2.7) Body Fluid Source Thoracentesis Body Fluid Volume 16 mL Body Fluid Appearance Yellow/clear (Clear) Body Fluid RBC 37 /CUMM Body Fluid Total Nucleated Cells 189 /CUMM Body Fluid Polynuclear WBCs (%) 3 % Body Fluid Mononuclear WBCs (%) 92 % Body Fluid Mesothelial Cells (%) 5 % Body Fluid Lactate Dehydrogenase Pending Body Fluid Total Protein Pending Intake and Output 08/10/18 08/11/18 18:59 06:59 Intake Total 360 ml Balance 360 ml Intake Oral 360 ml # Voids 1 Objective gen - NAD. awake HEENT - NC/AT Neck - no JVD. supple CHEST - CTA b/l ABD - NT/ND EXT - No c/c/e Assessment/Plan Assessment/Plan ASSESSMENT: 1. SOB 2/2 acute on chronic CHF exacerbation in setting of renal failure 2. Hypertension. 3. End-stage renal disease, on hemodialysis. 4. Schizoaffective disorder. 5. Bronchitis 6. Constipation 7. Hyponatremia 2/2 fluid overload 8. Moderate to large right pleural effusion s/p R thoracenthesis 800cc (08/11) 9. 2.3 x 1.7 cm right adrenal nodule, nonspecific although probably an adenoma PLAN: 1. medsurg 2. hemodialysis today 3. Pulmonary consult 4. Bowel regimen 5. Renal consult for dialysis. 6. Nebs prn 7. DVT prophylaxis. 8. Full Code. 9. resume home meds dc HOME IMPRESSION: Moderate to large right pleural effusion. Effusion may be complex and is likely nonhemodynamic. Slight thickening of the posterior pleura noted. Evaluation for tumor or inflammatory causes is limited on this examination done w/o IV contrast. Stigmata of the previous breast carcinoma with left partial mastectomy and axillary node dissection. Mild chronic lung disease as described above. 2.3 x 1.7 cm right adrenal nodule, nonspecific although probably an adenoma. Consider MRI evaluation. Status post cholecystectomy H of the kidneys with innumerable cysts. Accessory spleen Osteopenia Atherosclerotic vascular disease. Douglas Johnson MD Aug 11, 2018 19:21
--- NOTE | 2018-08-11 19:24 | NUR ---
HAND-OFF: Report given to RN Aga.
--- NOTE | 2018-08-11 19:30 | NUR ---
NURSE NOTES: RECEIVED PT FROM MARCIN SALVADOR. PT IS AWAKE, AAOX3. AT BEDSIDE, SPEAKING TO PT. DRESSING ON RIGHT MID AXILLARY IS DRY AND INTACT. DIALYSIS FISTULA NOTED ON UPPER LEFT LEG. IV ON RIGHT AC 20G IS INTACT AND PATENT. DENIES PAIN AT THE MOMENT. BED IS LOCKED AT THE LOWEST POSITION, BED ALARM ACTIVE, SIDE RAILS UP X2, AND CALL LIGHT IS WITHIN REACH. WILL CONTINUE TO MONITOR.
[2018-08-11 20:00] VITALS: BP 108/52
[2018-08-11] MEDS: Depakote ER 500mg tab ORAL SCH (20:49)
[2018-08-11] MEDS: Miralax 17gm pkt ORAL SCH (20:49)
[2018-08-11] MEDS: TraZODone 50mg tab ORAL SCH (20:49)
--- NOTE | 2018-08-11 21:02 | Cardiology Report ---
APPROVED REPORT EXAM: Two-dimensional and M-mode echocardiogram with Doppler and color Doppler. INDICATION S.O.B M-Mode DIMENSIONS IVSd1.0 (0.7-1.1cm)Left Atrium (MM)4.0 (1.6-4.0cm) LVDd5.1 (3.5-5.6cm)Aortic Root2.8 (2.0-3.7cm) PWd1.1 (0.7-1.1cm)Aortic Cusp Exc.1.3 (1.5-2.0cm) IVSs1.5 cm LVDs3.7 (2.5-4.0cm) PWs1.2 cm Technically difficult study due to poor acoustical windows. Normal left ventricular chamber size, systolic function and wall motion to extent visualized. Left ventricular ejection fraction estimated to be 55-60%. Mild left ventricular hypertrophy by 2-D. No evidence of pericardial effusion. All other cardiac chamber sizes are within normal limits. Aortic valve calcification with decreased cusp excursion c/w aortic stenosis. Mildly thickened mitral valve leaflets with normal excursion. Mild mitral annulus and aortic root calcification. Pulmonic valve not well visualized. IVC at normal size with physiologic collapse. A color flow and spectral Doppler study was performed and revealed: No aortic insufficiency . Peak aortic valve gradient of 34 mm Hg and a mean of 15 mmHg. Aortic valve area 2.8 cm2 calculated by continuity equation. Mitral inflow velocities indicates pseudo-normalization pattern implying moderately elevated left atrial pressure (Grade II ) Mild mitral regurgitation. Mild tricuspid regurgitation. Tricuspid systolic velocities suggests peak right ventricular systolic pressure of 43 mmHg,consistent with mild pulmonary HTN. Mild pulmonic regurgitation .
--- NOTE | 2018-08-11 21:08 | Cardiology Report ---
APPROVED REPORT EKG Measurement Heart [id number] Normal sinus rhythm Non-specific intraventricular conduction delay Abnormal ECG
--- NOTE | 2018-08-11 22:08 | Nephrology Progress Note ---
Assessment/Plan Problem List: (1) Dyspnea (2) Schizoaffective disorder (3) HTN (hypertension) (4) Bronchitis (5) Renal failure (6) SOB (shortness of breath) (7) Fluid overload (8) Respiratory distress (9) Pleural effusion (10) CHF (congestive heart failure) (11) ESRD (end stage renal disease) on dialysis Plan #ESRD on HD - continue resume m/w/f schedule -> HD today - resume home meds - strict I&Os - daily weights - monitor BMP #Acute bronchitis - IV abx - duonebs - pulm consult - thoracentesis - pulm hygeine #HTN - resume home meds - atenolol - amlodipine Subjective Interval Events/Complaints s/p thoracentesis today less cough less SOB HD today Constitutional: Denies: no symptoms, chills, diaphoresis, fever, malaise, weakness, other HEENT: Denies: no symptoms, eye pain, blurred vision, tearing, double vision, ear pain, ear discharge, nose pain, nose congestion, throat pain, throat swelling, mouth pain, mouth swelling, other Genitourinary: Denies: no symptoms, burning, discharge, frequency, flank pain, hematuria, incontinence, pain, urgency, other Objective Objective Last 24 Hour Vital Signs Date Time Temp Pulse Resp B/P (MAP) Pulse Ox O2 Delivery O2 Flow Rate FiO2 08/11/18 21:54 98 Nasal Cannula 2.0 28 08/11/18 21:53 62 20 98 Nasal Cannula 2.0 28 08/11/18 12:00 98.0 70 20 113/62 (79) 100 08/11/18 09:29 73 130/61 08/11/18 09:29 73 130/61 08/11/18 09:00 Nasal Cannula 3.0 08/11/18 08:15 76 16 97 Nasal Cannula 2.0 28 08/11/18 08:15 97 Nasal Cannula 2.0 28 Intake and Output 08/10/18 08/11/18 19:00 07:00 Intake Total 360 ml Balance 360 ml Intake Oral 360 ml # Voids 1 Laboratory Tests 08/11/18 05:45: Prothrombin Time 10.2, Prothromb Time International Ratio 1.0, Activated Partial Thromboplast Time 31, Sodium Level 131L, Potassium Level 5.2H, Chloride Level 93L, Carbon Dioxide Level 31, Anion Gap 7, Blood Urea Nitrogen 32H, Creatinine 8.8H, Estimat Glomerular Filtration Rate 5.5, Glucose Level 87, Calcium Level 10.0, Total Bilirubin 0.6, Aspartate Amino Transf (AST/SGOT) 12L, Alanine Aminotransferase (ALT/SGPT) 19, Alkaline Phosphatase 51, Lactate Dehydrogenase 166, Total Protein 6.4, Albumin 3.2L, Globulin 3.2, Albumin/ Globulin Ratio 1.0 08/11/18 12:14: Body Fluid Source Thoracentesis, Body Fluid Volume 16, Body Fluid Appearance Yellow/clear, Body Fluid RBC 37, Body Fluid Total Nucleated Cells 189, Body Fluid Polynuclear WBCs (%) 3, Body Fluid Mononuclear WBCs (%) 92, Body Fluid Mesothelial Cells (%) 5, Body Fluid Lactate Dehydrogenase [Pending] 08/11/18 12:40: Body Fluid Total Protein [Pending] Height (Feet): 5 Height (Inches): 6.00 Weight (Pounds): 217 General Appearance: WD/WN, no apparent distress EENT: PERRL/EOMI Cardiovascular: normal peripheral pulses, normal rate, regular rhythm Respiratory/Chest: lungs clear, normal breath sounds, no respiratory distress Abdomen: non tender, soft, no organomegaly Extremities: normal inspection, trace edema Neurologic: alert, oriented x 3, responsive Radha Verdin M.D. Aug 11, 2018 22:08
[2018-08-12] MEDS: guaiFENesin 100mg/5ml Liq ud ORAL PRN ×2 (05:58→12:35)
--- NOTE | 2018-08-12 06:33 | NUR ---
NURSE NOTES: PT AMBULATED IN HALLWAY WITH WALKER FOR 5 MINUTES. DID NOT TOLERATE WELL. SOB, AND O2 DESATURATE TO 86%. O2 WENT BACK UP TO 98% AT REST WITH NC 3L. WILL CONTINUE TO MONITOR.
--- NOTE | 2018-08-12 07:49 | NUR ---
HAND-OFF: Report given to MARCIN SALVADOR.
--- NOTE | 2018-08-12 07:55 | NUR ---
NURSE NOTES: Received patient on bed, chair awake. IV site intact and patent. Dressing on right upper back intact. Bed in low and locked position, call light in reach. No signs of respiratory distress or pain. Room board updated, will continue to monitor.
[2018-08-12 08:47] LABS: ANION GAP 6 mmol/L (5-15); BLOOD UREA NITROGEN 18 mg/dL (7-18); CALCIUM 9.7 MG/DL (8.5-10.1); CARBON DIOXIDE 32 MMOL/L (21-32); CHLORIDE 95 MMOL/L (98-107); CREATININE 6.1 MG/DL (0.55-1.30); SODIUM 133 MMOL/L (136-145)
[2018-08-12] MEDS: Atenolol 25mg tab ORAL SCH (09:00)
[2018-08-12] MEDS: guaiFENesin ER 600mg tab ORAL SCH ×2 (09:05→17:06)
[2018-08-12] MEDS: Sennosides 8.6mg tab ORAL SCH (09:05)
[2018-08-12] MEDS: Heparin 5000 units/ml inj SUBQ SCH ×2 (09:06→20:38)
[2018-08-12 12:00] VITALS: BP 127/63
--- NOTE | 2018-08-12 12:11 | Nephrology Progress Note ---
Assessment/Plan Problem List: (1) Dyspnea (2) Schizoaffective disorder (3) HTN (hypertension) (4) Bronchitis (5) Renal failure (6) SOB (shortness of breath) (7) Fluid overload (8) Respiratory distress (9) Pleural effusion (10) CHF (congestive heart failure) (11) ESRD (end stage renal disease) on dialysis Plan #ESRD on HD - continue resume m/w/ schedule -> HD today - resume home meds - strict I&Os - daily weights - monitor BMP #Acute bronchitis - IV abx - duonebs - pulm consult - thoracentesis - pulm hygeine #HTN - resume home meds - atenolol - amlodipine Subjective Constitutional: Denies: no symptoms, chills, diaphoresis, fever, malaise, weakness, other HEENT: Denies: no symptoms, eye pain, blurred vision, tearing, double vision, ear pain, ear discharge, nose pain, nose congestion, throat pain, throat swelling, mouth pain, mouth swelling, other Genitourinary: Denies: no symptoms, burning, discharge, frequency, flank pain, hematuria, incontinence, pain, urgency, other Neurologic/Psychiatric: Denies: no symptoms, anxiety, depressed, emotional problems, headache, numbness, paresthesia, pre-existing deficit, seizure, tingling, tremors, weakness, other Subjective Breathing continuing to improve s/p HD last night Objective Objective Last 24 Hour Vital Signs Date Time Temp Pulse Resp B/P (MAP) Pulse Ox O2 Delivery O2 Flow Rate FiO2 08/12/18 09:05 73 115/57 08/12/18 09:00 Nasal Cannula 3.0 08/11/18 21:54 98 Nasal Cannula 2.0 28 08/11/18 21:53 62 20 98 Nasal Cannula 2.0 28 08/11/18 21:00 Nasal Cannula 3.0 08/11/18 20:00 99.0 64 20 108/52 (70) 94 Intake and Output 08/11/18 08/12/18 19:00 07:00 Intake Total 400 ml Balance 400 ml Intake Oral 400 ml Laboratory Tests 08/11/18 12:14: Body Fluid Source Thoracentesis, Body Fluid Volume 16, Body Fluid Appearance Yellow/clear, Body Fluid RBC 37, Body Fluid Total Nucleated Cells 189, Body Fluid Polynuclear WBCs (%) 3, Body Fluid Mononuclear WBCs (%) 92, Body Fluid Mesothelial Cells (%) 5, Body Fluid Lactate Dehydrogenase [Pending] 08/11/18 12:40: Body Fluid Total Protein 3.0 08/12/18 08:00: Sodium Level 133L, Potassium Level 4.0, Chloride Level 95L, Carbon Dioxide Level 32, Anion Gap 6, Blood Urea Nitrogen 18, Creatinine 6.1H, Estimat Glomerular Filtration Rate 8.4, Glucose Level 129H, Calcium Level 9.7 Height (Feet): 5 Height (Inches): 6.00 Weight (Pounds): 217 General Appearance: WD/WN, no apparent distress EENT: PERRL/EOMI Neck: non-tender, normal alignment Cardiovascular: normal peripheral pulses, normal rate, regular rhythm Respiratory/Chest: lungs clear, normal breath sounds Abdomen: normal bowel sounds, non tender, soft Extremities: trace edema Neurologic: oriented x 3, responsive Radha Verdin M.D. Aug 12, 2018 12:11
--- NOTE | 2018-08-12 12:29 | Internal Med Progress Note ---
Subjective Physician Name Douglas Johnson Attending Physician Douglas Johnson MD Current Medications Medications (Trade) Dose Ordered Sig/Martha Route PRN Reason Start Time Stop Time Status Last Admin Dose Admin Acetaminophen (Tylenol) 650 mg Q4H PRN ORAL Mild Pain (Pain Scale 1-3) 08/09/18 09:45 09/08/18 09:44 08/09/18 22:41 Albuterol Sulfate (Proventil) 2.5 mg TIDRT PRN HHN sob 08/09/18 20:00 08/14/18 19:59 Amlodipine Besylate (Norvasc) 10 mg DAILY ORAL 08/10/18 09:00 09/09/18 08:59 08/12/18 09:05 Atenolol (Tenormin) 25 mg DAILY ORAL 08/10/18 09:00 09/09/18 08:59 08/11/18 09:29 Clonidine HCl (Catapres Tab) 0.1 mg Q6H PRN ORAL sbp> 170 or dbp > 100 08/09/18 20:00 09/08/18 19:59 Dextrose (Dextrose 50%) 25 ml Q30M PRN IV Hypoglycemia 08/09/18 09:45 09/08/18 09:44 Dextrose (Dextrose 50%) 50 ml Q30M PRN IV Hypoglycemia 08/09/18 09:45 09/08/18 09:44 Diphenhydramine HCl (Benadryl) 25 mg Q6H PRN ORAL Itching 08/11/18 12:06 09/10/18 12:05 08/11/18 12:36 Divalproex Sodium (Depakote ER) 500 mg QHS ORAL 08/09/18 21:00 09/08/18 20:59 08/11/18 20:49 Guaifenesin (Mucinex ER) 600 mg TWICE A DAY ORAL 08/09/18 18:00 09/08/18 17:59 08/12/18 09:05 Guaifenesin (Robitussin) 100 mg Q4H PRN ORAL For Cough 08/09/18 13:15 09/08/18 13:14 08/12/18 05:58 Heparin Sodium (Porcine) (Heparin 5000 units/ml) 5,000 units EVERY 12 HOURS SUBQ 08/09/18 21:00 09/08/18 20:59 08/12/18 09:06 Magnesium Hydroxide (Mom) 30 ml HSPRN PRN ORAL Constipation 08/09/18 09:45 09/08/18 09:44 08/10/18 13:59 Ondansetron HCl (Zofran) 4 mg Q6H PRN IVP Nausea & Vomiting 08/09/18 09:45 09/08/18 09:44 08/11/18 18:08 Polyethylene Glycol (Miralax) 17 gm BEDTIME ORAL 08/09/18 21:00 09/08/18 20:59 08/11/18 20:49 Sennosides (Senokot) 8.6 mg DAILY ORAL 08/09/18 20:00 09/08/18 19:59 08/12/18 09:05 Sevelamer Carbonate (Renvela) 1,600 mg BEFORE MEALS ORAL 08/10/18 11:30 09/09/18 11:29 08/12/18 12:06 Tramadol HCl (Ultram) 50 mg Q6H PRN ORAL Severe Pain (Pain Scale 7-10) 08/10/18 00:15 08/17/18 00:14 08/10/18 13:56 Trazodone HCl (Desyrel) 50 mg BEDTIME ORAL 08/09/18 21:00 09/08/18 20:59 08/11/18 20:49 Allergies: Coded Allergies: No Known Allergies (Unverified , 09/15/17) Subjective desaturated to 86% this morning after walking w/o O2 temp 100 today on 2 L O2 no CP no SOB 12 pt ros neg except above Objective Last Vital Signs Date Time Temp Pulse Resp B/P (MAP) Pulse Ox O2 Delivery O2 Flow Rate FiO2 08/12/18 09:05 73 115/57 08/12/18 09:00 Nasal Cannula 3.0 08/11/18 21:54 98 28 08/11/18 21:53 20 08/11/18 20:00 99.0 Laboratory Tests Test 08/11/18 12:40 08/12/18 08:00 Body Fluid Total Protein 3.0 g/dL (.) Sodium Level 133 MMOL/L (136-145) L Potassium Level 4.0 MMOL/L (3.5-5.1) Chloride Level 95 MMOL/L (98-107) L Carbon Dioxide Level 32 MMOL/L (21-32) Anion Gap 6 mmol/L (5-15) Blood Urea Nitrogen 18 mg/dL (7-18) Creatinine 6.1 MG/DL (0.55-1.30) H Estimat Glomerular Filtration Rate 8.4 mL/min (>60) Glucose Level 129 MG/DL (74-106) H Calcium Level 9.7 MG/DL (8.5-10.1) Intake and Output 08/11/18 08/12/18 19:00 07:00 Intake Total 400 ml Balance 400 ml Intake Oral 400 ml Objective gen - NAD. awake HEENT - NC/AT Neck - no JVD. supple CHEST - CTA b/l ABD - NT/ND EXT - No c/c/e Assessment/Plan Assessment/Plan ASSESSMENT: 1. SOB 2/2 acute on chronic CHF exacerbation in setting of renal failure 2. Hypertension. 3. End-stage renal disease, on hemodialysis. 4. Schizoaffective disorder. 5. Bronchitis 6. Constipation 7. Hyponatremia 2/2 fluid overload 8. Moderate to large right pleural effusion s/p R thoracenthesis 800cc (08/11) 9. 2.3 x 1.7 cm right adrenal nodule, nonspecific although probably an adenoma PLAN: 1. medsurg 2. hemodialysis tomorrow. may need more fluid removal bc of hypoxia 3. Pulmonary consult 4. Bowel regimen 5. Renal consult for dialysis. 6. Nebs prn 7. DVT prophylaxis. 8. Full Code. 9. resume home meds check ABG on RA tomorrow after dialysis IMPRESSION: Moderate to large right pleural effusion. Effusion may be complex and is likely nonhemodynamic. Slight thickening of the posterior pleura noted. Evaluation for tumor or inflammatory causes is limited on this examination done w/o IV contrast. Stigmata of the previous breast carcinoma with left partial mastectomy and axillary node dissection. Mild chronic lung disease as described above. 2.3 x 1.7 cm right adrenal nodule, nonspecific although probably an adenoma. Consider MRI evaluation. Status post cholecystectomy H of the kidneys with innumerable cysts. Accessory spleen Osteopenia Atherosclerotic vascular disease. Douglas Johnson MD Aug 12, 2018 12:29
[2018-08-12] MEDS: traMADol 50mg tab ORAL PRN (12:37)
--- NOTE | 2018-08-12 14:20 | Diagnostic Imaging Report ---
Indication: Cough Technique: One view of the chest Comparison: 08/11/2018 Findings: Triangular opacity in the right mid to lower lung is noted, probably reflects fluid in the major fissure. There is slight blunting of right costophrenic sulcus. Overall, pleural fluid on the right appears somewhat improved. Mild interstitial congestion persists. Impression: Evidence of decreased right pleural fluid, over one day Persistent mild interstitial congestion
--- NOTE | 2018-08-12 14:29 | NUR ---
RADIOLOGY DEPT., CHEST X-RAY BY RENUKA OCAMPO THIS AFTERNOON.[place]
[2018-08-12 16:00] VITALS: BP 108/51
--- NOTE | 2018-08-12 16:33 | NUR ---
NURSE NOTES: Left message for MD Verdin for a dialysis order. Waiting for orders.
--- NOTE | 2018-08-12 17:48 | NUR ---
NURSE NOTES: Vipul from [facility] was notified of dialysis order for tomorrow. Log book updated and awaiting call back from food production manager nurse. Charge nurse aware.
--- NOTE | 2018-08-12 19:23 | NUR ---
HAND-OFF: Report given to MARCIN Dyson.
--- NOTE | 2018-08-12 19:25 | NUR ---
NURSE NOTES: RECEIVED PT FROM MARCIN SALVADOR. PT IS AWAKE, AAOX4, BUT FORGETFUL. PT IS ON NC 3L, SITTING UP IN CHAIR, WATCHING TV. C/O BLOATING. IV ON R AC 20G IS INTACT AND PATENT. CALL LIGHT IS WITHIN REACH. WILL CONTINUE TO MONITOR.
[2018-08-12 20:00] VITALS: BP 109/50
[2018-08-12] MEDS: Miralax 17gm pkt ORAL SCH (20:35)
[2018-08-12] MEDS: Depakote ER 500mg tab ORAL SCH (20:36)
[2018-08-12] MEDS: TraZODone 50mg tab ORAL SCH (20:36)
--- NOTE | 2018-08-12 23:20 | NUR ---
NURSE NOTES: PT O2 AT 92% AFTER AMBULATING IN HALLWAY WITH WALKER FOR 7 MINUTES. WILL CONTINUE TO MONITOR.
--- NOTE | 2018-08-12 23:48 | Pulmonology Progress Note ---
Assessment/Plan Assessment/Plan Pulmonary Progress Notr: HPI: The patient is a 67-year-old female with history of obesity, end-stage renal disease, on hemodialysis 3 times a week, hypertension, diabetes, and CAD who presents with shortness of breath. She was discharged from the hospital on 08/03/2018. She was admitted with URI/bronchitis. Since then, she has had persistent cough and shortness of breath, also worsening orthopnea and PND, but no increased lower extremity edema. She has had some nausea and constipation. No fevers or chills. She has been using the Robitussin with codeine cough syrup. No other inhalers. No antecedent history of lung disease. She denies tobacco, alcohol, or drug use. She denies any recent ill contacts. With respect to her exercise tolerance, she states she has marked dyspnea walking 5 to 10 feet. At the time of my evaluation, she is in no distress. Moderate right pleural effusion on CT Chest PAST MEDICAL HISTORY: 1. End-stage renal disease, on dialysis. 2. Morbid obesity. 3. Diabetes. 4. Hypertension. 5. CAD. PAST SURGICAL HISTORY: AV fistula. MEDICATIONS: Prior to admission medications reviewed. Current medications reviewed. ALLERGIES: No known drug allergies. SOCIAL HISTORY: No tobacco, alcohol, or drug use. FAMILY HISTORY: Noncontributory. REVIEW OF SYSTEMS: Negative other than history of present illness. PHYSICAL EXAMINATION: VITAL SIGNS: Temperature 98.4, pulse 86, blood pressure 134/82, respiratory rate 18, and saturating 98% on room air. GENERAL: She is an obese female, in no acute distress. Awake, alert, and oriented x3. HEENT: Normocephalic and atraumatic. Oropharynx is clear with moist mucous membranes. NECK: Supple without lymphadenopathy or jugular venous distention. CHEST: Scattered breath sounds. HEART: Regular rate and rhythm. ABDOMEN: Soft, nontender, and nondistended. EXTREMITIES: No cyanosis, clubbing, or edema. ANCILLARY DATA: Chest x-ray, pulmonary vascular congestion and right-sided pleural effusion. White count 7.2, hemoglobin 10.4, and platelet count 230,000. Sodium 131, potassium 4.1, chloride 93, bicarb 27, BUN 31, creatinine 8.7, glucose 102, calcium 10.7. Total bilirubin 0.7. AST 21, ALT 24, and alkaline phosphatase 54. Troponin 0.035. BNP 25,000. Albumin 3.1 ASSESSMENT 1. Shortness of breath associated with volume overload, moderate right sided pleural effusion on CT chest 2. Resolving URI, bronchitis. 3. Congestive heart failure with acute exacerbation. 4. End-stage renal disease, on dialysis. 5. Hypertension. 6. Diabetes. PLAN: 1. Optimize pulmonary hygiene/mobilize as tolerated. 2. P.r.n. O2 to keep saturations greater than 90%. 3. Check ABG. 4. Check echo. 5. Check duplex. 6. Check D-dimer. 7. Mucinex and p.r.n. Robitussin. 8. Monitor volumes and renal function, dialysis per Renal with UF as tolerated. 9. DVT prophylaxis with heparin subcutaneous. 10. Weight loss, diet, and exercise. 11. R Thoracentesis Subjective ROS Limited/Unobtainable: No Allergies: Coded Allergies: No Known Allergies (Unverified , 09/15/17) Objective Last 24 Hour Vital Signs Date Time Temp Pulse Resp B/P (MAP) Pulse Ox O2 Delivery O2 Flow Rate FiO2 08/12/18 22:34 97 Nasal Cannula 2.0 28 08/12/18 22:33 71 20 97 Nasal Cannula 2.0 28 08/12/18 21:00 Nasal Cannula 3.0 08/12/18 20:00 98.0 69 17 109/50 (69) 100 08/12/18 16:00 97.7 69 23 108/51 (70) 100 08/12/18 14:34 98.1 08/12/18 12:00 100.2 73 21 127/63 (84) 98 08/12/18 09:05 73 115/57 08/12/18 09:00 Nasal Cannula 3.0 Intake and Output 08/11/18 08/12/18 19:00 07:00 Intake Total 400 ml Balance 400 ml Intake Oral 400 ml Laboratory Tests 08/12/18 08:00: Sodium Level 133L, Potassium Level 4.0, Chloride Level 95L, Carbon Dioxide Level 32, Anion Gap 6, Blood Urea Nitrogen 18, Creatinine 6.1H, Estimat Glomerular Filtration Rate 8.4, Glucose Level 129H, Calcium Level 9.7 Current Medications Medications (Trade) Dose Ordered Sig/Martha Route PRN Reason Start Time Stop Time Status Last Admin Dose Admin Acetaminophen (Tylenol) 650 mg Q4H PRN ORAL Mild Pain (Pain Scale 1-3) 08/09/18 09:45 09/08/18 09:44 08/12/18 14:04 Albuterol Sulfate (Proventil) 2.5 mg TIDRT PRN HHN sob 08/09/18 20:00 08/14/18 19:59 Amlodipine Besylate (Norvasc) 10 mg DAILY ORAL 08/10/18 09:00 09/09/18 08:59 08/12/18 09:05 Atenolol (Tenormin) 25 mg DAILY ORAL 08/10/18 09:00 09/09/18 08:59 08/11/18 09:29 Clonidine HCl (Catapres Tab) 0.1 mg Q6H PRN ORAL sbp> 170 or dbp > 100 08/09/18 20:00 09/08/18 19:59 Dextrose (Dextrose 50%) 25 ml Q30M PRN IV Hypoglycemia 08/09/18 09:45 09/08/18 09:44 Dextrose (Dextrose 50%) 50 ml Q30M PRN IV Hypoglycemia 08/09/18 09:45 09/08/18 09:44 Diphenhydramine HCl (Benadryl) 25 mg Q6H PRN ORAL Itching 08/11/18 12:06 09/10/18 12:05 08/11/18 12:36 Divalproex Sodium (Depakote ER) 500 mg QHS ORAL 08/09/18 21:00 09/08/18 20:59 08/12/18 20:36 Guaifenesin (Mucinex ER) 600 mg TWICE A DAY ORAL 08/09/18 18:00 09/08/18 17:59 08/12/18 17:06 Guaifenesin (Robitussin) 100 mg Q4H PRN ORAL For Cough 08/09/18 13:15 09/08/18 13:14 08/12/18 12:35 Heparin Sodium (Porcine) (Heparin 5000 units/ml) 5,000 units EVERY 12 HOURS SUBQ 08/09/18 21:00 09/08/18 20:59 08/12/18 20:38 Magnesium Hydroxide (Mom) 30 ml HSPRN PRN ORAL Constipation 08/09/18 09:45 09/08/18 09:44 08/10/18 13:59 Ondansetron HCl (Zofran) 4 mg Q6H PRN IVP Nausea & Vomiting 08/09/18 09:45 09/08/18 09:44 08/11/18 18:08 Polyethylene Glycol (Miralax) 17 gm BEDTIME ORAL 08/09/18 21:00 09/08/18 20:59 08/12/18 20:35 Sennosides (Senokot) 8.6 mg DAILY ORAL 08/09/18 20:00 09/08/18 19:59 08/12/18 09:05 Sevelamer Carbonate (Renvela) 1,600 mg BEFORE MEALS ORAL 08/10/18 11:30 09/09/18 11:29 08/12/18 17:06 Tramadol HCl (Ultram) 50 mg Q6H PRN ORAL Severe Pain (Pain Scale 7-10) 08/10/18 00:15 08/17/18 00:14 08/12/18 12:37 Trazodone HCl (Desyrel) 50 mg BEDTIME ORAL 08/09/18 21:00 09/08/18 20:59 08/12/18 20:36 Douglas Kee MD Aug 12, 2018 23:48
[2018-08-13] VITALS: BP 107/43
--- NOTE | 2018-08-13 03:45 | Consultation ---
DATE OF CONSULTATION: 08/12/2018 CONSULTING PHYSICIAN: Douglas Boothe D.P.M. REFERRING PHYSICIAN: Douglas Johnson M.D. REASON FOR CONSULTATION: Bilateral leg pain. HISTORY OF PRESENT ILLNESS: This is a 67-year-old patient, admitted to [facility] with shortness of breath. The patient states that she has pain to her legs mostly at night when sleeping. She feels cramping and pain to the lateral foot. The patient states the pain is limited to aching. Denies sharp shooting, tingling, burning, stabbing pain that could be consistent with peripheral neuropathy. PAST MEDICAL HISTORY: Peripheral vascular disease, peripheral arterial disease, edema of the bilateral legs, dialysis. PODIATRY EXAMINATION: VASCULAR: Dorsalis pedis and posterior tibial artery are noted to be nonpalpable. Capillary refilling time is greater than 5 seconds. There is edema to the knee, extended to the foot and . NEUROLOGICAL: Sharp and dull proprioception, protected threshold noted to be slightly diminished consistent with peripheral neuropathy. MUSCULOSKELETAL: No gross abnormality can be appreciated. The patient is in a wheelchair. She is using walker to ambulate. The range of motion noted to be diminished. Muscle strength noted to be diminished to bilateral feet. DERMATOLOGICAL: No finding was noted to bilateral feet and leg. Pain was upon palpation of the calves and dorsal aspect of the foot. ASSESSMENT AND PLAN: Peripheral vascular disease, peripheral arterial disease, edema bilateral legs, tingling bilaterally. Order was written for vascular studies. Order was written for consultation by Dr. Joyce for evaluation of vascular status. The patient will be followed once the consultation is completed. Douglas Boothe D.P.M DR: ELÍAS JOB#: [id number] CC:
[2018-08-13 04:00] VITALS: BP 120/63
--- NOTE | 2018-08-13 07:40 | NUR ---
HAND-OFF: Report given to MARCIN BLANCHARD.
[2018-08-13 08:00] VITALS: BP 113/51
--- NOTE | 2018-08-13 08:13 | NUR ---
NURSE NOTES: Patient is alert and oriented,respirations are unlabored.02 on at 2 L N/C.patient sitting up in bed .Dialysis fistula to to the Left thigh with strong bruit and thrill.Call light within reach.
[2018-08-13] MEDS: Atenolol 25mg tab ORAL SCH (09:00)
[2018-08-13] MEDS: guaiFENesin ER 600mg tab ORAL SCH ×2 (10:16→19:07)
[2018-08-13] MEDS: Heparin 5000 units/ml inj SUBQ SCH ×2 (10:19→21:00)
[2018-08-13] MEDS: Sennosides 8.6mg tab ORAL SCH (10:23)
[2018-08-13] MEDS: traMADol 50mg tab ORAL PRN (10:24)
--- NOTE | 2018-08-13 10:53 | NUR ---
PRODUCTION PAINTERTECHNICAL PROGRAMS MANAGER SI:ACUTE ON CHRONIC CHF EXACERBATION . PLEURAL EFFUSION S/P THORACENTESIS 08/11 VS: BP 107/43, P 68, T 98.1, RR 20, SpO2 97 on 2.0L O2 NC NO LABS TODAY IS:TRAMADOL 50mg HEPARIN SUBQ RENVELA 1600mg DEPAKOTE 500mg MED/SURG STATUS
[2018-08-13 12:09] VITALS: BP 129/65
--- NOTE | 2018-08-13 13:37 | NUR ---
RESPIRATORY NOTE: Pt has ABG order today to be done after dialysis and while on room air. Per JEREMIAS Torres, Pt hasn't been dialyzed yet. Asked JEREMIAS Torres and MARCIN Gr to call RT after pt gets dialysis done. Will follow up later.
--- NOTE | 2018-08-13 13:38 | Pulmonology Progress Note ---
Assessment/Plan Assessment/Plan Pulmonary Progress Note: HPI: The patient is a 67-year-old female with history of obesity, end-stage renal disease, on hemodialysis 3 times a week, hypertension, diabetes, and CAD who presents with shortness of breath. She was discharged from the hospital on 08/03/2018. She was admitted with URI/bronchitis. Since then, she has had persistent cough and shortness of breath, also worsening orthopnea and PND, but no increased lower extremity edema. She has had some nausea and constipation. No fevers or chills. She has been using the Robitussin with codeine cough syrup. No other inhalers. No antecedent history of lung disease. She denies tobacco, alcohol, or drug use. She denies any recent ill contacts. With respect to her exercise tolerance, she states she has marked dyspnea walking 5 to 10 feet. At the time of my evaluation, she is in no distress. Moderate right pleural effusion on CT Chest PAST MEDICAL HISTORY: 1. End-stage renal disease, on dialysis. 2. Morbid obesity. 3. Diabetes. 4. Hypertension. 5. CAD. PAST SURGICAL HISTORY: AV fistula. MEDICATIONS: Prior to admission medications reviewed. Current medications reviewed. ALLERGIES: No known drug allergies. SOCIAL HISTORY: No tobacco, alcohol, or drug use. FAMILY HISTORY: Noncontributory. REVIEW OF SYSTEMS: Negative other than history of present illness. PHYSICAL EXAMINATION: VITAL SIGNS: Temperature 98.4, pulse 86, blood pressure 134/82, respiratory rate 18, and saturating 98% on room air. GENERAL: She is an obese female, in no acute distress. Awake, alert, and oriented x3. HEENT: Normocephalic and atraumatic. Oropharynx is clear with moist mucous membranes. NECK: Supple without lymphadenopathy or jugular venous distention. CHEST: Scattered breath sounds. HEART: Regular rate and rhythm. ABDOMEN: Soft, nontender, and nondistended. EXTREMITIES: No cyanosis, clubbing, or edema. ANCILLARY DATA: Chest x-ray, pulmonary vascular congestion and right-sided pleural effusion. White count 7.2, hemoglobin 10.4, and platelet count 230,000. Sodium 131, potassium 4.1, chloride 93, bicarb 27, BUN 31, creatinine 8.7, glucose 102, calcium 10.7. Total bilirubin 0.7. AST 21, ALT 24, and alkaline phosphatase 54. Troponin 0.035. BNP 25,000. Albumin 3.1 ASSESSMENT 1. Shortness of breath associated with volume overload, moderate right sided pleural effusion on CT chest 2. Resolving URI, bronchitis. 3. Congestive heart failure with acute exacerbation. 4. End-stage renal disease, on dialysis. 5. Hypertension. 6. Diabetes. PLAN: 1. Optimize pulmonary hygiene/mobilize as tolerated. 2. P.r.n. O2 to keep saturations greater than 90%. 3. Check ABG. 4. Check echo. 5. Check duplex. 6. Check D-dimer. 7. Mucinex and p.r.n. Robitussin. 8. Monitor volumes and renal function, dialysis per Renal with UF as tolerated. 9. DVT prophylaxis with heparin subcutaneous. 10. Weight loss, diet, and exercise. 11. R Thoracentesis Subjective ROS Limited/Unobtainable: No Allergies: Coded Allergies: No Known Allergies (Unverified , 09/15/17) Objective Last 24 Hour Vital Signs Date Time Temp Pulse Resp B/P (MAP) Pulse Ox O2 Delivery O2 Flow Rate FiO2 08/13/18 12:09 98.7 71 16 129/65 (86) 100 08/13/18 09:00 Nasal Cannula 3.0 08/13/18 08:15 98 Nasal Cannula 2.0 28 08/13/18 08:15 76 18 98 Nasal Cannula 2.0 28 08/13/18 08:00 99.2 74 17 113/51 (71) 99 08/13/18 04:00 98.7 74 16 120/63 (82) 100 08/13/18 00:00 98.1 68 16 107/43 (64) 100 08/12/18 22:34 97 Nasal Cannula 2.0 28 08/12/18 22:33 71 20 97 Nasal Cannula 2.0 28 08/12/18 21:00 Nasal Cannula 3.0 08/12/18 20:00 98.0 69 17 109/50 (69) 100 08/12/18 16:00 97.7 69 23 108/51 (70) 100 08/12/18 14:34 98.1 Current Medications Medications (Trade) Dose Ordered Sig/Martha Route PRN Reason Start Time Stop Time Status Last Admin Dose Admin Acetaminophen (Tylenol) 650 mg Q4H PRN ORAL Mild Pain (Pain Scale 1-3) 08/09/18 09:45 09/08/18 09:44 08/12/18 14:04 Albuterol Sulfate (Proventil) 2.5 mg TIDRT PRN HHN sob 08/09/18 20:00 08/14/18 19:59 Amlodipine Besylate (Norvasc) 10 mg DAILY ORAL 08/10/18 09:00 09/09/18 08:59 08/12/18 09:05 Atenolol (Tenormin) 25 mg DAILY ORAL 08/10/18 09:00 09/09/18 08:59 08/11/18 09:29 Clonidine HCl (Catapres Tab) 0.1 mg Q6H PRN ORAL sbp> 170 or dbp > 100 08/09/18 20:00 09/08/18 19:59 Dextrose (Dextrose 50%) 25 ml Q30M PRN IV Hypoglycemia 08/09/18 09:45 09/08/18 09:44 Dextrose (Dextrose 50%) 50 ml Q30M PRN IV Hypoglycemia 08/09/18 09:45 09/08/18 09:44 Diphenhydramine HCl (Benadryl) 25 mg Q6H PRN ORAL Itching 08/11/18 12:06 09/10/18 12:05 08/11/18 12:36 Divalproex Sodium (Depakote ER) 500 mg QHS ORAL 08/09/18 21:00 09/08/18 20:59 08/12/18 20:36 Guaifenesin (Mucinex ER) 600 mg TWICE A DAY ORAL 08/09/18 18:00 09/08/18 17:59 08/13/18 10:16 Guaifenesin (Robitussin) 100 mg Q4H PRN ORAL For Cough 08/09/18 13:15 09/08/18 13:14 08/12/18 12:35 Heparin Sodium (Porcine) (Heparin 5000 units/ml) 5,000 units EVERY 12 HOURS SUBQ 08/09/18 21:00 09/08/18 20:59 08/13/18 10:19 Magnesium Hydroxide (Mom) 30 ml HSPRN PRN ORAL Constipation 08/09/18 09:45 09/08/18 09:44 08/10/18 13:59 Ondansetron HCl (Zofran) 4 mg Q6H PRN IVP Nausea & Vomiting 08/09/18 09:45 09/08/18 09:44 08/11/18 18:08 Polyethylene Glycol (Miralax) 17 gm BEDTIME ORAL 08/09/18 21:00 09/08/18 20:59 08/12/18 20:35 Sennosides (Senokot) 8.6 mg DAILY ORAL 08/09/18 20:00 09/08/18 19:59 08/13/18 10:23 Sevelamer Carbonate (Renvela) 1,600 mg BEFORE MEALS ORAL 08/10/18 11:30 09/09/18 11:29 08/13/18 12:07 Tramadol HCl (Ultram) 50 mg Q6H PRN ORAL Severe Pain (Pain Scale 7-10) 08/10/18 00:15 08/17/18 00:14 08/13/18 10:24 Trazodone HCl (Desyrel) 50 mg BEDTIME ORAL 08/09/18 21:00 09/08/18 20:59 08/12/18 20:36 Douglas Kee MD Aug 13, 2018 13:38
--- NOTE | 2018-08-13 15:23 | Coder Physician Query ---
Clarification is required for compliance, coding accuracy, and to reflect severity of illness for this patient Dear Dr. Douglas Johnson Date: 08/13/18 Reconciliation Clerk/CDS Name: Alley Fishman Clinical documentation states: HNP: SOB 2/2 acute on chronic CHF exacerbation in setting of renal failure BNP 94749 Echo: moderately elevated left atrial pressure, EF 55-60% Please Clarify Type: [] Systolic [x] Diastolic [] Systolic & Diastolic (Combined) [] Other: Present on Admission: [] Yes [] No [] Clinically Undetermined Physician signature Date Please also document in your Progress Notes and/or Discharge Summary and indicate if the condition was present on admission. MTDD
[2018-08-13 16:21] VITALS: BP 106/61
--- NOTE | 2018-08-13 18:00 | NUR ---
NURSE NOTES: Patient resting,Dialysis Nurse will see patient today.Will endorse to oncoming RN to ambulate patient after dialysis without 02 and record [address] of 02 results.ABGs will be done after Dialysis.call light within reach.
--- NOTE | 2018-08-13 18:35 | Nephrology Progress Note ---
Assessment/Plan Problem List: (1) Dyspnea (2) Schizoaffective disorder (3) HTN (hypertension) (4) Bronchitis (5) Renal failure (6) SOB (shortness of breath) (7) Fluid overload (8) Respiratory distress (9) Pleural effusion (10) CHF (congestive heart failure) (11) ESRD (end stage renal disease) on dialysis Plan #ESRD on HD - continue resume m/w/f schedule -> HD today - resume home meds - strict I&Os - daily weights - monitor BMP #Acute bronchitis - IV abx - duonebs - pulm consult - thoracentesis - pulm hygeine #HTN - resume home meds - atenolol - amlodipine Subjective Subjective HD today Ambulated last night - satting 90% on room air HD today Objective Objective Last 24 Hour Vital Signs Date Time Temp Pulse Resp B/P (MAP) Pulse Ox O2 Delivery O2 Flow Rate FiO2 08/13/18 16:21 97.9 61 18 106/61 (76) 100 08/13/18 12:09 98.7 71 16 129/65 (86) 100 08/13/18 09:00 Nasal Cannula 3.0 08/13/18 08:15 98 Nasal Cannula 2.0 28 08/13/18 08:15 76 18 98 Nasal Cannula 2.0 28 08/13/18 08:00 99.2 74 17 113/51 (71) 99 08/13/18 04:00 98.7 74 16 120/63 (82) 100 08/13/18 00:00 98.1 68 16 107/43 (64) 100 08/12/18 22:34 97 Nasal Cannula 2.0 28 08/12/18 22:33 71 20 97 Nasal Cannula 2.0 28 08/12/18 21:00 Nasal Cannula 3.0 08/12/18 20:00 98.0 69 17 109/50 (69) 100 Height (Feet): 5 Height (Inches): 6.00 Weight (Pounds): 217 General Appearance: WD/WN, no apparent distress EENT: PERRL/EOMI Neck: non-tender Cardiovascular: normal rate, regular rhythm Respiratory/Chest: lungs clear, normal breath sounds, no respiratory distress Abdomen: normal bowel sounds, non tender Neurologic: alert, oriented x 3, responsive Radha Verdin M.D. Aug 13, 2018 18:35
--- NOTE | 2018-08-13 19:35 | NUR ---
HAND-OFF: Report given to Irma BURCH.
--- NOTE | 2018-08-13 19:36 | NUR ---
NURSE NOTES: Patient is alert and oriented,respirations are unlabored.02 on at 2 L N/C.patient sitting up in bed . Dialysis to occur this evening. Abgs will be drawn following dialysis. Call light within reach.
--- NOTE | 2018-08-13 19:48 | Discharge Summary ---
Discharge Summary Hospital Course Date of Admission Aug 10, 2018 at 17:34 Date of Discharge Admitting Diagnosis SOB HPI Fani Nneka Mg is a 67 year old female who was admitted on Aug 10, 2018 at 17:34 for SOB # [id number] Discharge Condition Upon Discharge: stable Discharge Disposition Patient was discharged to HOME Douglas Johnson MD Aug 13, 2018 19:48
--- NOTE | 2018-08-13 19:52 | Discharge Instructions ---
Discharge Instructions Discharge Instructions Follow up with: PCP in 1 wk Call MD/Return to Hospital if: SOB Resume Normal Activity?: Yes Activity: resume normal activities For Congestive Heart Failure Reminder Report to your physician any weight gain of 5 pounds or more in one week. Douglas Johnson MD Aug 13, 2018 19:52
[2018-08-13] MEDS ORDERED: traMADol 50mg tab ORAL PRN (19:55)
[2018-08-13 20:00] VITALS: BP 121/59
[2018-08-13] MEDS ORDERED: TraZODone 50mg tab ORAL SCH (21:00)
[2018-08-13] MEDS: Miralax 17gm pkt ORAL SCH (21:00)
[2018-08-13] MEDS: Depakote ER 500mg tab ORAL SCH (21:00)
--- NOTE | 2018-08-13 22:22 | NUR ---
NURSE NOTES: Pt receiving dialysis. meds and heparin held prior to dialysis
[2018-08-14] VITALS: BP 93/61
--- NOTE | 2018-08-14 00:55 | NUR ---
NURSE NOTES: DIalysis completed. 3.5 liters out. BP 101/60. Unable to ambulate pt at this time. complains of feeling weak. ABGs drawn
--- NOTE | 2018-08-14 01:00 | NUR ---
NURSE NOTES: Pt again unable to ambulate. Complains of pain 10/10 getting tramadol which patient states affects her strongly. Unsafe to ambulate at this time. Will try later. BP 93/61
--- NOTE | 2018-08-14 03:01 | NUR ---
HAND-OFF: Report given to MARCIN Sena
--- NOTE | 2018-08-14 03:15 | NUR ---
NURSE NOTES: Patient still awake upon hand-off report. Asked patient again regarding MD order to ambulate her without O2. Patient verbalized that she is too tired and she wants to sleep. Patient understands the indication of being able to ambulate and have satisfactory O2 saturation after ambulating prior to being discharged. She is agreeable to ambulate in the morning.
--- NOTE | 2018-08-14 04:48 | NUR ---
NURSE NOTES: Respiratory therapist called and notified RN that ABG done earlier was done with 1L of O2 instead of room air. Will endorse to next shift.
--- NOTE | 2018-08-14 07:11 | NUR ---
HAND-OFF: Report given to Mann BURCH.
--- NOTE | 2018-08-14 07:13 | NUR ---
NURSE NOTES: received report from MARCIN Sena. patient in bed. alert. oriented. verbally responsive. having breakfast. no respiratory distress noted with O21l/min via NC. no pain at this time. IV on RAC intact. skin intact. bed in the lowest position. call light within reach. will continue to monitor and provide plan of care.
[2018-08-14 08:00] VITALS: BP 126/63
--- NOTE | 2018-08-14 09:03 | Discharge Summary ---
DATE OF ADMISSION: 08/10/2018 DATE OF DISCHARGE: 08/14/2018 REASON FOR ADMISSION: Shortness of breath. PROCEDURES DONE HERE: Right thoracentesis of 800 cc on 08/11/2018. BRIEF HOSPITAL COURSE AND SUMMARY: This is a 67-year-old female with schizoaffective disorder and end-stage renal disease, on hemodialysis, recently hospitalized for bronchitis and fluid overload who presents to emergency room again for shortness of breath secondary to acute on chronic CHF exacerbation in setting of renal failure. The patient had a chest x-ray showed a large right pleural effusion, status post thoracentesis of 800 cc. She was dialyzed with more fluid drawn out because of her fluid overload status. The patient was walked, ambulated, off of oxygen with O2 sat of 92% or higher. She will need a followup with her quality checker as outpatient for more dialysis hours in this near future to avoid recurrent admission. The patient had a 2D echocardiogram with ejection fraction of 55% to 60%. DISCHARGE CONDITION: Stable. DISCHARGE INSTRUCTIONS: The patient to follow up with PCP within 3 to 4 days. The patient to return hospital for worsening shortness of breath. The patient to ambulate as tolerated. DISCHARGE DIAGNOSES: 1. Acute on chronic congestive heart failure exacerbation. 2. Renal failure. 3. Hypertension. 4. End-stage renal disease, on hemodialysis. 5. Schizoaffective disorder. 6. Bronchitis. 7. Constipation. 8. Hyponatremia secondary to fluid overload. 9. Moderate to large right pleural effusion, status post thoracentesis. 10. 7.7 cm right adrenal nodule, likely adenoma. Douglas Johnson MD DR: KAREN JOB#: [id number] CC:
[2018-08-14] MEDS: guaiFENesin ER 600mg tab ORAL SCH ×2 (09:11→17:37)
[2018-08-14] MEDS: Atenolol 25mg tab ORAL SCH (09:11)
[2018-08-14] MEDS: Sennosides 8.6mg tab ORAL SCH (09:11)
[2018-08-14] MEDS: Heparin 5000 units/ml inj SUBQ SCH (09:14)
--- NOTE | 2018-08-14 09:22 | Diagnostic Imaging Report ---
APPROVED REPORT CPT Code: 31353 Comments Pain, Swelling RIGHT LEG: Common femoral artery waveform analysis is within normal limits at rest. Color flow duplex sonography reveals calcification throughout the superficial femoral and popliteal arteries. There is no evidence of significant stenosis or occlusion within these segments. Doppler tibial artery waveform analysis is compatible with minimal ischemia. LEFT LEG: : There is a synthetic graft in the left GSV, the anatomosis is at proximal left SFA. Imaging reveals patency of the AV graft at the thigh with normal velocity. Common femoral artery waveform analysis is within normal limits at rest. Color flow duplex sonography reveals calcification throughout the superficial femoral and popliteal arteries. There is no evidence of significant stenosis or occlusion within these segments. Doppler tibial artery waveform analysis is compatible with minimal ischemia.
--- NOTE | 2018-08-14 11:00 | NUR ---
NURSE NOTES: doctor ordered ambulation without oxygen after HD to know the readiness of discharge. patient refused to walk at this time. patient said too tired to walk and would try later.
[2018-08-14 12:00] VITALS: BP 137/79
--- NOTE | 2018-08-14 14:00 | NUR ---
NURSE NOTES: patient refused to walk due to feeling weak.
--- NOTE | 2018-08-14 14:43 | NUR ---
NURSE NOTES: Left message for MD Angelo as he is covering for MD Wahlrii his weekend. Patient states she is unable to ambulate at this time and refused to try as on previous shift. patient complains of shortness of breath but O2 saturations are within normal range. Patient states she cannot have a bowel movement and is nauseated when trying to eat. Patient does not want to feel discharged as she feels ill. Message left and awaiting further orders.
--- NOTE | 2018-08-14 15:10 | NUR ---
NURSE NOTES: patient c/o nausea. given zofran 4mg/2nl IVP as ordered. will continue to monitor
--- NOTE | 2018-08-14 16:21 | NUR ---
NURSE NOTES: patient no BM for 4days. offered MOM 30cc PRN for constipation. refused to take mediation.
--- NOTE | 2018-08-14 18:06 | NUR ---
NURSE NOTES: patient will discharge home with [facility]. notified RP(radha simon/daughter).
--- NOTE | 2018-08-14 19:06 | NUR ---
NURSE NOTES: patient discharged via w/c accompanied by friend(Hebert Vergara) with fair condition. no respiratory distress noted. no c/o pain. removed IV and ID band. provided dc packet and new prescription. checked and counted belonging with patient, obtained sign. Colleen/MOI assisted patient to the down stair.
== END 2018-08-14 19:15 | disposition home health service (06) | DRG 291 ==
LOC: EDBD 07:32 → EMR 07:47 → UNDOADMOB 08:24 → 4E 08:24 → INTOOBSV 08:24 → OBSVTOIN 08:24 → EDBEDREQ 09:54 → 4E 10:30 → OBSVTOIN 08-10 17:34 → 4E 08-10 17:34
PROC: 5A1D70Z Performance of Urinary Filtration, Intermittent, Less than 6 Hours Per Day (ICD-10-PCS; principal; 2018-08-10)
PROC: 0W993ZZ Drainage of Right Pleural Cavity, Percutaneous Approach (ICD-10-PCS; 2018-08-11)
DX: I13.2 Hypertensive heart and chronic kidney disease with heart failure and with stage 5 chronic kidney disease, or end stage renal disease (principal); N18.6 End stage renal disease; I50.33 Acute on chronic diastolic (congestive) heart failure; E87.1 Hypo-osmolality and hyponatremia; J90 Pleural effusion, not elsewhere classified; R06.03 Acute respiratory distress; F25.9 Schizoaffective disorder, unspecified; K59.00 Constipation, unspecified; J20.9 Acute bronchitis, unspecified; Z99.2 Dependence on renal dialysis; I25.10 Atherosclerotic heart disease of native coronary artery without angina pectoris; E11.22 Type 2 diabetes mellitus with diabetic chronic kidney disease; I73.9 Peripheral vascular disease, unspecified; R09.02 Hypoxemia; Z85.3 Personal history of malignant neoplasm of breast; D35.01 Benign neoplasm of right adrenal gland
CPT/HCPCS: 36415; 36600; 71045; 71250; 74018; 76942; 80048; 80053; 82550; 82553; 82803; 83615; 83690; 83880; 84484; 85025; 85379; 85610; 85730; 89051; 93005; 93306; 93925; 93970; 94664; 96374; 99284; J2405

== ENCOUNTER 2018-08-23 15:12 | Emergency (ER) | payer MEDICARE, MEDICAID ==
[~2018-08-23] VITALS: Ht 162.6 cm; Wt 74.8 kg
[~2018-08-23 15:12] MED LIST changes: +RENVELA0.8 GM ORAL; +SYNTHROID50 MCG ORAL
[2018-08-23 15:25] VITALS: BP 147/67
--- NOTE | 2018-08-23 15:30 | NUR ---
ED Nurse Note: du talked to pt regarding the discharge plan. pt is aware of the discharge.
--- NOTE | 2018-08-23 15:33 | NUR ---
ED Nurse Note: pt was brought in by ambulance from home c/o missed dialysis, pt denies any pain, no shortness of breath noted. pt has no complaint as of the moment. pt stated she missed the dialysis because she was trying to call and noone is answering. pt vs stable. will continue to monitor.
--- NOTE | 2018-08-23 16:00 | NUR ---
ED Nurse Note: pt next of kin marbella notified for the dc home.
[2018-08-23 16:20] VITALS: BP 147/67
--- NOTE | 2018-08-23 16:20 | NUR ---
ER DISCHARGE NOTE: Patient is cleared to be discharged per ERMD, pt is aox4, on room air, with stable vital signs. pt was given dc and prescription instructions, pt was able to verbalize understanding, pt id band removed without complications. pt is able to ambulate with steady gait. pt took all belongings.
--- NOTE | 2018-08-23 18:08 | Emergency Room Report ---
History of Present Illness General Chief Complaint: General Complaint Source: Patient, EMS Present Illness HPI 67-year-old female presents ED for evaluation. Brought in by EMS from home. Patient states that she missed her dialysis session this morning and called 911. History of end-stage renal disease. Gets dialysis Thursday. Denies chest pain or shortness of breath. Has no complaints at this time. No other aggravating relieving factors. Denies any other associated symptoms Allergies: Coded Allergies: No Known Allergies (Unverified , 09/15/17) Patient History Past Medical History: DM, HTN, renal disease, dialysis Past Surgical History: none Pertinent Family History: none Social History: Denies: smoking, alcohol use, drug use Now: No Immunizations: UTD Reviewed Nursing Documentation: PMH: Agreed; PSxH: Agreed Nursing Documentation-PMH Hx Cardiac Problems: Yes Hx Hypertension: Yes Hx Diabetes: Yes Hx Cancer: No Hx Gastrointestinal Problems: Yes Hx Dialysis: Yes Hx Neurological Problems: Yes Hx Weakness: Yes Review of Systems All Other Systems: negative except mentioned in HPI Physical Exam Vital Signs Date Time Temp Pulse Resp B/P (MAP) Pulse Ox O2 Delivery O2 Flow Rate FiO2 08/23/18 15:06 97.5 88 18 147/67 (93) 97 Room Air Sp02 EP Interpretation: reviewed, normal General Appearance: no apparent distress, alert, GCS 15, non-toxic Head: normocephalic, atraumatic Eyes: bilateral eye normal inspection, bilateral eye PERRL ENT: hearing grossly normal, normal pharynx, no angioedema, normal voice Neck: full range of motion, supple/symm/no masses Respiratory: chest non-tender, lungs clear, normal breath sounds, speaking full sentences Cardiovascular #1: regular rate, rhythm, no edema Cardiovascular #2: 2+ carotid (R), 2+ carotid (L), 2+ radial (R), 2+ radial (L) , 2+ dorsalis pedis (R), 2+ dorsalis pedis (L) Gastrointestinal: normal bowel sounds, non tender, soft, non-distended, no guarding, no rebound Rectal: deferred Genitourinary: normal inspection, no CVA tenderness Musculoskeletal: back normal, gait/station normal, normal range of motion, non- tender Neurologic: alert, oriented x3, responsive, motor strength/tone normal, sensory intact, speech normal Psychiatric: judgement/insight normal, memory normal, mood/affect normal, no suicidal/homicidal ideation Reflexes: 3+ bicep (R), 3+ bicep (L), 3+ tricep (R), 3+ tricep (L), 3+ knee (R) , 3+ knee (L) Skin: normal color, no rash, warm/dry, well hydrated, other - dialysis access L thigh. bruit noted. no erythema/induration Lymphatic: no adenopathy Medical Decision Making Diagnostic Impression: Primary Impression: ESRD (end stage renal disease) on dialysis ER Course Hospital Course 67-year-old F presents ED requesting dialysis. missed dialysis today Differential diagnoses include: TX/unstable angina, fluid overload, CHF exacerabation, hyperkalemia, uremia Clinical course Patient placed on stretcher. 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 After initial history , exam reveals female in no acute distress. Lungs clear. No significant leg swelling. Remainder of exam unremarkable. vitals stable. No signs of fluid overload. No chest pain or shortness of breath. No emergent indication for dialysis. spoke to Dr Johnson who admitted patient several times and knows patient well. agrees that if patient is not in distress, with stable vitals and no signs of fluid overload she can be dialyzed tomorrow. Patient spoke to dialysis center which stated that they can arrange for dialysis later today or in the morning. I believe she can be safely discharged home as dialysis has been scheduled for her. Transportation arranged to take patient home I. I feel this is a highly complex case requiring extensive working including EKG/Rhythm strip, Xray/CT/US, Blood/urine lab work, repeat exams while in ED, and administration of strong opiates/narcotics for pain control, admission to hospital or close patient follow up. Diagnosis - ESRD on dialysis stable and discharged to home. Follow-up with PMD. Return to ED if symptoms recur or worsen Last Vital Signs Date Time Temp Pulse Resp B/P (MAP) Pulse Ox O2 Delivery O2 Flow Rate FiO2 08/23/18 16:20 97.5 88 18 147/67 97 Room Air Status: improved Disposition: HOME, SELF-CARE Condition: Stable Referrals: Douglas Johnson MD NOT CHOSEN IPA/MD,REFERRING (PCP) Patient Instructions: Chronic Kidney Disease, [id number] Additional Instructions: please go to your dialysis session tomorrow as scheduled Jerald Ortiz MD Aug 23, 2018 18:08
== END 2018-08-23 16:20 | disposition home or self-care (01) ==
LOC: EDBD 15:12 → EMR 16:10
DX: N18.6 End stage renal disease (principal); I12.0 Hypertensive chronic kidney disease with stage 5 chronic kidney disease or end stage renal disease; E11.22 Type 2 diabetes mellitus with diabetic chronic kidney disease; Z99.2 Dependence on renal dialysis
CPT/HCPCS: 99282